=== PATIENT | male | born 1985 | race Caucasian/White ===

== ENCOUNTER 2017-08-03 17:42 | Emergency (ER) | payer MEDICAID, OTHER ==
[~2017-08-03] VITALS: Ht 190.5 cm; Wt 229.5 kg
[2017-08-03 17:56] VITALS: BP 168/115
[2017-08-03] MEDS ORDERED: HYDROcodone-ACET 10/325MG TAB PO ONE (22:15)
[2017-08-04] MEDS ORDERED: TRIAMCINOLONE 40MG/ML 1ML VIAL IM ONE (01:15)
[2017-08-04] MEDS ORDERED: LIDOCAINE 1% (LOCAL ANESTH.) PF 5ml SDV IJ ONE (01:15)
[2017-08-04] MEDS ORDERED: LIDOCAINE 1% HCL (LOCAL ANESTH.) INJ 20ML MDV ONE (01:22)
== END 2017-08-04 01:59 | disposition home or self-care (01) ==
LOC: ER 17:42
DX: M62.838 Other muscle spasm (principal); M54.2 Cervicalgia
CPT/HCPCS: 71046; 72040; 96372; 99284; J2001; J3301

== ENCOUNTER 2018-12-09 14:35 | Inpatient (IN) | payer BC, MEDICAID ==
[~2018-12-09] VITALS: Ht 185.4 cm; Wt 242.0 kg
[2018-12-09] MEDS ORDERED: NITROGLYCERIN 0.4 MG SL TAB SL ONE ×2 (14:47→16:00)
[2018-12-09] MEDS ORDERED: SODIUM CHLORIDE 0.9% 1,000 ML IV ONE (15:11)
[2018-12-09 15:34] LABS: Basophils # (auto) 0.2 uL; Basophils % (auto) 1.8 % (0.0-2.0); Eosinophils # (auto) 0.1 uL; Hemoglobin 16.1 g/dL (13.5-17.5); Lymphocytes % (auto) 11.4 % (10.0-50.0); Mean Corpuscular Hemoglobin 28.8 pg (28.0-32.0); Mean Corpuscular Hgb Conc. 32.8 g/dL (32.0-36.0); Mean Corpuscular Volume 87.8 fL (80.0-100.0); Monocytes # (auto) 0.8 uL; Monocytes % (auto) 8.9 % (0.0-12.0); Neutrophils # (auto) 6.6 uL; Neutrophils % (auto) 76.9 % (37.0-80.0); Nucleated Red Blood Cells % 0.5 %; Platelet Count (auto) 291 10^3/uL (140-450); Red Blood Cells 5.58 10^6/uL (4.5-5.90); Red Cell Distribution Width 17.7 % (11.8-14.3); White Blood Cell 8.6 10^3/uL (4.4-10.8)
[2018-12-09 15:46] LABS: Albumin 3.2 g/dL (3.4-5.0); INR 1.22 (0.9-1.15); Partial Thromboplastin Time 26.2 sec (23.64-32.05); Potassium 4.1 mmol/L (3.5-5.1)
[2018-12-09 15:51] LABS: BUN/Creatinine Ratio 10.7; Total Protein 8.3 g/dL (6.4-8.2)
[2018-12-09] MEDS ORDERED: methylPREDNISolone SOD SUCC 125 MG/2 ML VL IV ONE (16:00)
[2018-12-09] MEDS ORDERED: IPRATROPIUM BROM 0.5 MG/2.5ML INH SOL NEB ONE (16:00)
[2018-12-09] MEDS ORDERED: ALBUTEROL SULF 2.5 MG/0.5ML(0.5%) NEB SOLN NEB ONE (16:00)
[2018-12-09] MEDS ORDERED: cefTRIAXone 1GM/50ML D5W 50 ML IV ONE (16:00)
[2018-12-09] MEDS ORDERED: FUROSEMIDE 40 MG/4 ML VIAL IV ONE (16:00)
[2018-12-09] MEDS ORDERED: ALBUTEROL SULF 2.5 MG/0.5ML(0.5%) NEB SOLN ONE (16:04)
[2018-12-09] MEDS ORDERED: IPRATROPIUM BROM 0.5 MG/2.5ML INH SOL ONE (16:04)
[2018-12-09] MEDS ORDERED: ENOXAPARIN SOD 100 MG/1 ML SYRINGE SC ONE (16:15)
[2018-12-09] MEDS ORDERED: ENOXAPARIN SOD 80 MG/0.8ML SYRINGE SC ONE (20:00)
[2018-12-09] MEDS ORDERED: ENOXAPARIN SOD 30 MG/0.3 ML SYRINGE IV ONE (20:00)
[2018-12-10] VITALS (8 sets, daily range): BP systolic 114–142; BP diastolic 65–96
[2018-12-10] MEDS ORDERED: LORazepam 2MG/ML-1ML VIAL IV ONE (01:45)
[2018-12-10] MEDS ORDERED: PROPOFOL 100 ML IV SCH (04:06)
[2018-12-10] MEDS ORDERED: PROPOFOL 100 ML IV ONE (04:12)
[2018-12-10] MEDS ORDERED: MIDAZOLAM HCL 5 MG/ML-1ML VIAL IV ONE (04:15)
[2018-12-10] MEDS ORDERED: ETOMIDATE (2MG/ML) 20ML VIAL IV ONE (04:15)
[2018-12-10] MEDS ORDERED: SUCCINYLCHOLINE CHLORIDE 20 MG/ML 10ML VIAL IV ONE (04:15)
[2018-12-10] MEDS ORDERED: SODIUM CHLORIDE 0.9% 1,000 ML IV ONE (04:15)
[2018-12-10] MEDS ORDERED: ENOXAPARIN SOD 150 MG/1 ML SYRINGE SC ONE ×2 (04:30)
[2018-12-10] MEDS ORDERED: ENOXAPARIN SOD 100 MG/1 ML SYRINGE SC ONE ×2 (04:30→13:15)
--- NOTE | 2018-12-10 10:03 | NUR ---
CHARTING ERROR AT 1003. DISREGARD ENTRY.
[2018-12-10] MEDS ORDERED: NITROGLYCERIN 0.4 MG SL TAB SL ONE (13:15)
[2018-12-10] MEDS ORDERED: ASPirin 81 mg TAB PO ONE (13:15)
--- NOTE | 2018-12-10 14:47 | NUR ---
PT. OFF BIPAP PER DR. NAVAS. PLACED PT. ON 6LPM NC, SPO2 90%. PT. TO WEAR BIPAP AT [facility]. PT. IS AWAKE AND ALERT, NO RESP. DISTRESS NOTED, WILL CONTINUE TO MONITOR RESP. STATUS. Addendum: 12/10/18 at 1529 by Chasity Schaefer RT Amended: Links added.
[2018-12-10] MEDS ORDERED: HEPARIN DRIP/D5W 100UNITS/ML 250 ML IV SCH (15:57)
[2018-12-10] MEDS ORDERED: CLOPIDOGREL BISULFATE 75 MG TAB PO ONE ×2 (16:00→16:56)
[2018-12-10] MEDS ORDERED: HEPARIN SODIUM (PORCINE) 5000 UNITS/ML 1ML VIAL IV ONE ×2 (16:00→17:15)
[2018-12-10] MEDS ORDERED: ALBUTEROL SULF 2.5 MG/0.5ML(0.5%) NEB SOLN NEB ONE (16:15)
--- NOTE | 2018-12-10 16:30 | NUR ---
PT. FOUND ON 10LPM SIMPLE MASK, SPO2 990%. PT. STATES HE FEELS MUCH BETTER, WILL CONTINUE TO MONITOR RESP. STATUS.
[2018-12-10 17:02] LABS: INR 1.2 (0.9-1.15); Partial Thromboplastin Time 29.8 sec (23.64-32.05)
[2018-12-10] MEDS ORDERED: ACETAMINOPHEN 500 MG TAB PO PRN (17:45)
[2018-12-10] MEDS ORDERED: ONDANSETRON HCL 4 MG/2 ML VIAL IV PRN (17:45)
[2018-12-10] MEDS ORDERED: NITROGLYCERIN 0.4 MG SL TAB SL PRN (17:45)
[2018-12-10] MEDS ORDERED: MORPHINE SULF INJ 2 MG/ML SYRINGE 1ML IV PRN ×2 (17:45)
[2018-12-10] MEDS: HEPARIN DRIP/D5W 100UNITS/ML 250 ML IV SCH (18:04)
[2018-12-10] MEDS ORDERED: VASELINE LIP THERAPY 10gm TOP PRN (22:45)
[2018-12-11] VITALS (68 sets, daily range): BP systolic 107–146; BP diastolic 60–100
--- NOTE | 2018-12-11 00:15 | NUR ---
INITIAL ASSESSMENT PT TRANSFERRED TO SPECIALTY BED IN ROOM 108 FROM ED. A/O X4. SOB ON MASK AT 10 LITERS, 02 SAT 89% WITH RT AT BEDSIDE. ST ON OCCUPATIONAL HEALTH MANAGER AT 104. ABD LARGE AND SOFT NO TENDERNESS, IV'S PATENT AND INTACT. IV HEPERARIN RUNNING, SEE IV SPREADSHEET. SKIN INTACT, WITH ROUGH SCALY LEGS. CASTRO CATHETER PATENT AND DRAINING RED URINE TO GRAVITY. PATIENT IN NO DISTRESS OR PAIN AT THIS TIME. EDUCATED PT AND FAMILY GUNSTOCK SPRAY UNIT ADJUSTER LIGHT AND UPDATED FAMILY ON POC. BED IN LOWEST LOCKED POSITION, IN FULL VIEW OF NURSES STATION, WILL CONTINUE TO MONITOR.
[2018-12-11] MEDS: ALBUTEROL SULF 2.5 MG/0.5ML(0.5%) NEB SOLN NEB PRN ×2 (00:26→12:15)
[2018-12-11] MEDS: IPRATROPIUM BROM 0.5 MG/2.5ML INH SOL NEB PRN ×2 (00:26→12:15)
[2018-12-11 01:30] LABS: INR 1.19 (0.9-1.15); Partial Thromboplastin Time 33.8 sec (23.64-32.05)
--- NOTE | 2018-12-11 01:30 | NUR ---
BROTHER AT BEDSIDE UPDATED ON PT STATUS, ALL QUESTIONS AND CONCERNS ADDRESSED AT THIS TIME. VERBALIZED UNDERSTANDING.
--- NOTE | 2018-12-11 02:00 | NUR ---
COUSIN AT BEDSIDE UPDATED ON PT STATUS, ALL QUESTIONS AND CONCERNS ADDRESSED AT THIS TIME. VERBALIZED UNDERSTANDING.
[2018-12-11 05:22] LABS: Basophils # (auto) 0.3 uL; Basophils % (auto) 2.8 % (0.0-2.0); Eosinophils # (auto) 0.1 uL; Eosinophils % (auto) 1.4 % (0.0-7.0); Hematocrit 45.5 % (41.0-53.0); Lymphocytes # (auto) 1.9 uL; Lymphocytes % (auto) 19.9 % (10.0-50.0); Mean Corpuscular Hemoglobin 28.8 pg (28.0-32.0); Mean Corpuscular Hgb Conc. 32.9 g/dL (32.0-36.0); Mean Corpuscular Volume 87.5 fL (80.0-100.0); Monocytes # (auto) 0.6 uL; Monocytes % (auto) 6.4 % (0.0-12.0); Neutrophils # (auto) 6.5 uL; Neutrophils % (auto) 69.5 % (37.0-80.0); Nucleated Red Blood Cells % 0.1 %; Platelet Count (auto) 291 10^3/uL (140-450); Red Blood Cells 5.21 10^6/uL (4.5-5.90); Red Cell Distribution Width 17.4 % (11.8-14.3); White Blood Cell 9.4 10^3/uL (4.4-10.8)
[2018-12-11 05:41] LABS: INR 1.17 (0.9-1.15); Partial Thromboplastin Time 33.4 sec (23.64-32.05)
[2018-12-11 05:43] LABS: BUN/Creatinine Ratio 13.1; Calcium 8.6 mg/dL (8.5-10.1); Potassium 4.2 mmol/L (3.5-5.1)
[2018-12-11 05:47] LABS: Bilirubin, Total 1.9 mg/dL (0.2-1.0); Total Protein 7.6 g/dL (6.4-8.2)
[2018-12-11] MEDS: HEPARIN DRIP/D5W 100UNITS/ML 250 ML IV SCH ×3 (06:06→23:20)
--- NOTE | 2018-12-11 08:40 | NUR ---
PER DR. ARAMBULA ORDERS FOR PT TO WEAR BIPAP AT NIGHT AND DURING DAY WHILE NAPPING. WILL CONTINUE TO MONITOR PT.
--- NOTE | 2018-12-11 09:00 | NUR ---
NUTRITION PATIENT IS HAVING A POOR APPETITE AT THIS TIME. PT ONLY DRANK JUICES. PT AWAITING LUNCH.
[2018-12-11] MEDS ORDERED: CLOPIDOGREL BISULFATE 75 MG TAB PO SCH (10:00)
--- NOTE | 2018-12-11 11:20 | NUR ---
CHIP MUCKER AT BEDSIDE
[2018-12-11] MEDS: FAMOTIDINE 20 MG TAB PO SCH (11:40)
--- NOTE | 2018-12-11 12:00 | NUR ---
REPOSITIONING PATIENT FEARFUL OF REPOSITIONING DUE TO DESATURATION. WITH CALMING AND REASSURANCE PATIENT WAS ABLE TO LAY IN SEMI FOWLERS AND TURNED TO SIDE. PT NOTED TO DESATURATE TO 88% BUT AFTER PATIENT BACK IN HIGH FOWLES POX INCREASED BACK TO BASELINE 90-93%. PT TOLERATED WELL. SACRUM REMAINS INTACT.
--- NOTE | 2018-12-11 12:45 | NUR ---
LAB CALLED FOR PENDING PTT.
[2018-12-11] MEDS ORDERED: ASPirin 81 mg TAB PO ONE (13:00)
[2018-12-11] MEDS ORDERED: cefTRIAXone 1GM/50ML D5W 50 ML IV ONE (13:00)
[2018-12-11] MEDS ORDERED: AZITHROMYCIN 500MG/ 250ML 250 ML IV ONE (13:00)
--- NOTE | 2018-12-11 13:00 | NUR ---
HOSPITALIST AT BEDSIDE DR. FARRIS UPDATED ON PATIENTS STATUS. MD AWARE OF OF HEMTURIA. MD UPDATED PATIENT AND FAMILY AT BEDSIDE RE: PLAN OF CARE. SEE NEW ORDERS.
--- NOTE | 2018-12-11 13:52 | NUR ---
FIBROUS PLASTERER AT BEDSIDE DR. HAMLIN AT BEDSIDE UPDATED PATIENT AND MOTHER AT BEDSIDE. QUESTIONS AND CONCERNS ADDRESSED. CLARIFIED WITH MD, OK TO STOP ASPIRIN AND PLAVIX PATIENT IS CURRENTLY ON HEPARIN. MD STATING PATIENT TO BE ON HEPARIN FOR 5 DAYS THEN STARTED ON ANTICOAGULANT. BLOOD CLOTTING STUDIES ARE SEND OUTS, LAB AWARE AND CALLING BACK WITH LAB ORDERS FROM [facility].
--- NOTE | 2018-12-11 13:54 | NUR ---
LAB AWARE OF PENDING STAT ORDER, PTT TO BE TAKEN SHORTLY BY INDUSTRIAL SEWER. LAB AWARE NO BLOOD DRAWS TO LEFT ARM.
--- NOTE | 2018-12-11 13:56 | NUR ---
ARTERIAL STUDY BEING TAKEN AT BEDSIDE.
[2018-12-11 14:27] LABS: INR 1.16 (0.9-1.15); Partial Thromboplastin Time 35.4 sec (23.64-32.05)
[2018-12-11] MEDS: ALBUTEROL SULF 2.5 MG/0.5ML(0.5%) NEB SOLN NEB SCH ×3 (14:56→22:29)
[2018-12-11] MEDS: IPRATROPIUM BROM 0.5 MG/2.5ML INH SOL NEB SCH ×3 (14:57→22:29)
--- NOTE | 2018-12-11 15:19 | NUR ---
HEPARIN PROTOCOL PER PTT OF 35.4. 5000 UNIT HEPARIN BOLUS TO BE GIVEN AND INCREASE RATE BY 300UNITS/HR. OR 3ML/HR. RATE INCREASED TO 26MLHR. RX. AWARE OF CHANGE.
[2018-12-11] MEDS ORDERED: HEPARIN SODIUM (PORCINE) 5000 UNITS/ML 1ML VIAL IV ONE (15:30)
--- NOTE | 2018-12-11 17:12 | NUR ---
DR. ARAMBULA GIVEN ECHO RESULTS. CURRENT TX TO CONTINUE.
--- NOTE | 2018-12-11 18:16 | NUR ---
CRITICAL RESULT [facility] CALLED WITH CRITICAL ARTERIAL STUDY. MARKETING DATABASE CONSULTANT PATRICA PAGED AND NOTIFIED, VERBALIZED UNDERSTANDING. MARKETING DATABASE CONSULTANT AWARE PATIENT HAS WEAK BUT PULSE IS PRESENT. HAND IS WARM TO TOUCH, PT AT TIMES THROUGHOUT HAS COMPLAINED OF SOME TINGLING. NEW ORDER RECEIVED. DR. HAMLIN PAGED TO NOTIFY.
--- NOTE | 2018-12-11 18:45 | NUR ---
DR. HAMLIN CALLED BACK. UPDATED ON IMAGING RESULTS. MD NOTIFIED PATIENT HAS PULSE VIA PALPATION AND VERIFIED WITH DOPPLER, HAND WARM TO TOUCH, CAP REFILL LESS THAN 3 SEC, PT AT THIS TIME DENIES ANY TINGLING OR NUMBNESS. NEW ORDERS IN PLACE FOR PO MEDICATION FOR TX OF VASOSPASMS. Addendum: 12/11/18 at 1847 by Rosetta Cadet RN ALL PULSES PRESENT AND VERIFIED WITH DOPPLER. Addendum: 12/11/18 at 1937 by Rosetta Cadet RN IV INFUSING HEPARIN TO LEFT ARM D/C'D AND CHANGED LINE TO RIGHT AC.
--- NOTE | 2018-12-11 19:13 | NUR ---
RT NOTE RECEIVED PT ON BIPAP B8 ON STATED SETTINGS WITH MEDIUM MASK. BIPAP IS PLUGGED TO RED OUTLET. ALARMS ARE ON AND AUDIBLE AT NURSES STATION. AMBU BAG AT BEDSIDE AND CONNECTED TO O2 SOURCE. PT HAS HIGH FLOW AT BEDSIDE. BILATERAL BS ARE DIMINISHED. HHN GIVEN INLINE WITH 2.5 MG ALBUTEROL AND 0.5 MG ATROVENT WITHOUT ADVERSE REACTION NOTED. CONT ORDERED POX 95% Addendum: 12/11/18 at 2042 by Charley Mendoza RT Amended: Links added.
--- NOTE | 2018-12-11 20:09 | NUR ---
RT NOTE PT REQUESTS TO COME OFF BIPAP AT THIS TIME. PT PLACED ON HIGH FLOW. STAN GOMES AT BEDSIDE AND AWARE. PT APPEARS TO TOLERATES WELL. CONT ORDERED Addendum: 12/11/18 at 2042 by Charley Mendoza RT Amended: Links added.
[2018-12-11] MEDS ORDERED: DILTIAZEM HCL 120MG ER CAP PO ONE (22:00)
[2018-12-11 22:08] LABS: Basophils # (auto) 0.1 uL; Basophils % (auto) 0.9 % (0.0-2.0); Eosinophils # (auto) 0.1 uL; Hemoglobin 14.6 g/dL (13.5-17.5); Lymphocytes # (auto) 1.7 uL; Lymphocytes % (auto) 22.9 % (10.0-50.0); Mean Corpuscular Hemoglobin 28.3 pg (28.0-32.0); Mean Corpuscular Hgb Conc. 31.7 g/dL (32.0-36.0); Mean Corpuscular Volume 89.2 fL (80.0-100.0); Monocytes # (auto) 0.5 uL; Monocytes % (auto) 6.5 % (0.0-12.0); Neutrophils # (auto) 5.1 uL; Neutrophils % (auto) 67.7 % (37.0-80.0); Platelet Count (auto) 281 10^3/uL (140-450); Red Blood Cells 5.15 10^6/uL (4.5-5.90); Red Cell Distribution Width 18.1 % (11.8-14.3); White Blood Cell 7.5 10^3/uL (4.4-10.8)
--- NOTE | 2018-12-11 22:30 | NUR ---
RT NOTE PT WAS SEEN BY RT FOR HHN TX. PT TOLERATES WELL VIA MASK. NO ADVERSE REACTION NOTED. CONT ORDERED Addendum: 12/11/18 at 2236 by Charley Mendoza RT Amended: Links added.
[2018-12-12] VITALS (32 sets, daily range): BP systolic 97–146; BP diastolic 76–95
--- NOTE | 2018-12-12 00:40 | NUR ---
RT NOTE PLACED PT BACK ON BIPAP TO SLEEP. PT ON BIPAP B8 ON STATED SETTINGS WITH MEDIUM MASK. BIPAP IS PLUGGED TO RED OUTLET. ALARMS ARE ON AND AUDIBLE AT NURSES STATION. AMBU BAG AT BEDSIDE AND CONNECTED TO O2 SOURCE. LIQUI-CELL IN PLACE. NO SKIN BREAKDOWN NOTED. PT HAS HIGH FLOW AT BEDSIDE. CONT ORDERED POX 97% Addendum: 12/12/18 at 0125 by Charley Mendoza RT Amended: Links added.
--- NOTE | 2018-12-12 02:17 | NUR ---
RT NOTE ROUTINE BIPAP CHECK DONE. PT ON BIPAP B8 ON STATED SETTINGS WITH MEDIUM MASK. BIPAP IS PLUGGED TO RED OUTLET. ALARMS ARE ON AND AUDIBLE AT NURSES STATION. AMBU BAG AT BEDSIDE AND CONNECTED TO O2 SOURCE. LIQUI-CELL IN PLACE. NO SKIN BREAKDOWN NOTED. PT HAS HIGH FLOW AT BEDSIDE. BILATERAL BS ARE DIMINISHED. HHN GIVEN INLINE WITH 2.5 MG ALBUTEROL AND 0.5 MG ATROVENT WITHOUT ADVERSE REACTION. VISITOR AT BEDSIDE CONT ORDERED. POX 94% Addendum: 12/12/18 at 0308 by Charley Mendoza RT Amended: Links added.
[2018-12-12] MEDS: IPRATROPIUM BROM 0.5 MG/2.5ML INH SOL NEB SCH ×6 (02:28→22:02)
[2018-12-12] MEDS: ALBUTEROL SULF 2.5 MG/0.5ML(0.5%) NEB SOLN NEB SCH ×6 (02:28→22:02)
[2018-12-12] MEDS: HEPARIN DRIP/D5W 100UNITS/ML 250 ML IV SCH ×2 (02:30→11:16)
--- NOTE | 2018-12-12 02:30 | NUR ---
PT/PTT RESULTS IN AND PTT=32; PER PROTOCOL, BOLUSED 5,000 UNITS/5ML OF HEPARIN GTT AND INCREASED RATE BY 300 UNITS/HR FROM 26ML TO 29ML AND WILL RECHECK PTT AT 0830A.
--- NOTE | 2018-12-12 04:04 | NUR ---
RT NOTE ROUTINE BIPAP CHECK DONE. PT ON BIPAP B8 ON STATED SETTINGS WITH MEDIUM MASK. BIPAP IS PLUGGED TO RED OUTLET. ALARMS ARE ON AND AUDIBLE AT NURSES STATION. AMBU BAG AT BEDSIDE AND CONNECTED TO O2 SOURCE. LIQUI-CELL IN PLACE. NO SKIN BREAKDOWN NOTED. PT HAS HIGH FLOW AT BEDSIDE. BILATERAL BS ARE DIMINISHED. VISITOR AT BEDSIDE CONT ORDERED POX 95% Addendum: 12/12/18 at 0422 by Charley Mendoza RT Amended: Links added.
--- NOTE | 2018-12-12 08:00 | NUR ---
CARE COMPLETED TOTAL BED CHANGE AND BED BATH PROVIDED WHILE PATIENT ON BIPAP. PT TOLERATED MOVEMENT WELL WITH REASSURANCE ON 60% FI02. PT ABLE TO ASSIST WITH TURNING WHILE MODERATE ASSISTANCE PROVIDED. PT TO BE PLACED ON HIGH FLOW ONCE CARES COMPLETED.
[2018-12-12] MEDS: DILTIAZEM HCL 120MG ER CAP PO SCH (10:00)
[2018-12-12] MEDS ORDERED: ASPirin 81 mg TAB PO SCH (10:00)
--- NOTE | 2018-12-12 10:00 | NUR ---
BUSINESS APPLICATIONS ANALYST AT BEDSIDE DR. ARAMBULA AT BEDSIDE. MD UPDATED PATIENT AND COUSIN ON PLAN OF CARE. QUESTIONS AND CONCERNS ADDRESSED. SEE MD NOTES.
[2018-12-12 10:18] LABS: Basophils # (auto) 0.1 uL; Basophils % (auto) 1.2 % (0.0-2.0); Eosinophils # (auto) 0.2 uL; Eosinophils % (auto) 2.6 % (0.0-7.0); Hematocrit 46.6 % (41.0-53.0); Hemoglobin 15.4 g/dL (13.5-17.5); Lymphocytes # (auto) 1.4 uL; Lymphocytes % (auto) 20.3 % (10.0-50.0); Mean Corpuscular Volume 87.9 fL (80.0-100.0); Monocytes # (auto) 0.5 uL; Monocytes % (auto) 6.9 % (0.0-12.0); Neutrophils # (auto) 4.7 uL; Nucleated Red Blood Cells % 0.1 %; Platelet Count (auto) 289 10^3/uL (140-450); Red Blood Cells 5.31 10^6/uL (4.5-5.90); Red Cell Distribution Width 17.8 % (11.8-14.3); White Blood Cell 6.8 10^3/uL (4.4-10.8)
[2018-12-12 10:32] LABS: Albumin 2.8 g/dL (3.4-5.0); Calcium 8.8 mg/dL (8.5-10.1); Potassium 4.2 mmol/L (3.5-5.1)
[2018-12-12 10:33] LABS: INR 1.16 (0.9-1.15); Partial Thromboplastin Time 38.6 sec (23.64-32.05)
[2018-12-12 10:35] LABS: BUN/Creatinine Ratio 12.4; Bilirubin, Total 2.2 mg/dL (0.2-1.0); Total Protein 7.3 g/dL (6.4-8.2)
--- NOTE | 2018-12-12 10:35 | NUR ---
PTT PENDING FOR TITRATION OF HEPARIN PROTOCOL.
[2018-12-12] MEDS: AZITHROMYCIN 500MG/ 250ML 250 ML IV SCH (11:04)
[2018-12-12] MEDS: cefTRIAXone 1GM/50ML D5W 50 ML IV SCH (11:05)
[2018-12-12] MEDS: FAMOTIDINE 20 MG TAB PO SCH (11:06)
--- NOTE | 2018-12-12 11:17 | NUR ---
PTT PENDING AWAITING RESULTS FOR TITRATION.
--- NOTE | 2018-12-12 11:45 | NUR ---
PTT 38.6, NO BOLUS, HEPARIN TO BE INCREASED BY 2ML/HR. HEPARIN RATE AT 31ML/HR..
--- NOTE | 2018-12-12 12:25 | NUR ---
TITRATED HIGH FLOW NASAL CANNULA TO 55 LPM, 65% FIO2. PT TOLERATING CHANGE WELL. SPO2 RANGES 90%-93%.
--- NOTE | 2018-12-12 12:55 | NUR ---
DR. HAMLIN AT BEDSIDE MD UPDATED ON PATIENTS STATUS. LEFT HAND ASSESSED, PULSES PALPABLE, HAND WARM TO TOUCH WITH CAP REFILL LESS THAN 3 SEC. SEE MD ORDERS.
--- NOTE | 2018-12-12 14:03 | NUR ---
PT SWITCHED TO BIPAP ON SETTINGS 20/10 BUR 12, 60% FIO2 TO NAP. PT SLEEPING AND TOLERATING BIPAP WELL. LIQUI-CELL IN TACT ON BRIDGE OF NOSE. LUNGS ARE DIMINISHED T/O ANTERIOR LOBES. BIPAP ALARMS SET AND AUDIBLE.
--- NOTE | 2018-12-12 15:39 | NUR ---
Cooling Measures applied. Patient currently has temp of 99.5 , cooling measures in place.
--- NOTE | 2018-12-12 16:30 | NUR ---
PATIENT SLEEPING WHILE ON BIPAP RR 23-25. POX 97%. VSS. WILL CONTINUE TO MONITOR.
--- NOTE | 2018-12-12 18:15 | NUR ---
LAB AT BEDSIDE OBTAINING PTT FOR HEPARIN PROTOCOL.
--- NOTE | 2018-12-12 18:17 | NUR ---
PATIENT REQUESTING TO REMAIN ON BIPAP. R.T AWARE. TRAY TO BE PROVIDED AND WHEN PATIENT IS READY TO EAT R.T TO BE NOTIFIED.
[2018-12-12 18:50] LABS: INR 1.18 (0.9-1.15); Partial Thromboplastin Time 43.8 sec (23.64-32.05)
--- NOTE | 2018-12-12 19:05 | NUR ---
PENDING PTT RESULTS.
--- NOTE | 2018-12-12 19:45 | NUR ---
PHARMACY CALLED AND REPORTED PTT RESULT= 43.8 AND TO INCREASE HEPARIN GTT BY 200 UNITS/HR WHEN ABLE.
--- NOTE | 2018-12-12 20:30 | NUR ---
INCREASED HEPARIN GTT BY 200 UNITS/HR AND WILL REPEAT PT/PTT IN SIX HOURS; WENT FROM 31ML/HR TO 33ML/HR.
[2018-12-13] VITALS (28 sets, daily range): BP systolic 114–155; BP diastolic 71–96
[2018-12-13] MEDS: IPRATROPIUM BROM 0.5 MG/2.5ML INH SOL NEB SCH ×6 (02:07→21:52)
[2018-12-13] MEDS: ALBUTEROL SULF 2.5 MG/0.5ML(0.5%) NEB SOLN NEB SCH ×6 (02:07→21:52)
[2018-12-13 04:35] LABS: Basophils # (auto) 0.1 uL; Basophils % (auto) 0.8 % (0.0-2.0); Eosinophils # (auto) 0.2 uL; Eosinophils % (auto) 3.2 % (0.0-7.0); Hematocrit 45.9 % (41.0-53.0); Hemoglobin 15.1 g/dL (13.5-17.5); Lymphocytes # (auto) 1.4 uL; Lymphocytes % (auto) 21.4 % (10.0-50.0); Mean Corpuscular Hemoglobin 28.9 pg (28.0-32.0); Mean Corpuscular Hgb Conc. 32.9 g/dL (32.0-36.0); Mean Corpuscular Volume 87.9 fL (80.0-100.0); Monocytes # (auto) 0.5 uL; Monocytes % (auto) 7.5 % (0.0-12.0); Neutrophils # (auto) 4.5 uL; Neutrophils % (auto) 67.1 % (37.0-80.0); Nucleated Red Blood Cells % 0.1 %; Platelet Count (auto) 273 10^3/uL (140-450); Red Blood Cells 5.22 10^6/uL (4.5-5.90); Red Cell Distribution Width 17.6 % (11.8-14.3); White Blood Cell 6.8 10^3/uL (4.4-10.8)
[2018-12-13 04:45] LABS: INR 1.18 (0.9-1.15); Partial Thromboplastin Time 33.4 sec (23.64-32.05)
[2018-12-13 04:52] LABS: Albumin 2.8 g/dL (3.4-5.0); Calcium 8.8 mg/dL (8.5-10.1); Potassium 4.2 mmol/L (3.5-5.1)
[2018-12-13 04:59] LABS: BUN/Creatinine Ratio 10.6; Total Protein 7.1 g/dL (6.4-8.2)
[2018-12-13] MEDS ORDERED: HEPARIN SODIUM (PORCINE) 5000 UNITS/ML 1ML VIAL ONE (05:29)
[2018-12-13] MEDS ORDERED: HEPARIN SODIUM (PORCINE) 5000 UNITS/ML 1ML VIAL IV ONE (05:30)
[2018-12-13 05:39] LABS: % Iron Saturation 18.4 % (20-55)
--- NOTE | 2018-12-13 05:50 | NUR ---
PTT RESULTS=33.4; PT. RECEIVED 5,000 UNIT HEPARIN BOLUS IV AND INCREASED HEPARIN GTT TO 36ML/HR FROM 33ML/HR; WILL RECHECK PTT IN 6 HOURS PER PROTOCOL.
--- NOTE | 2018-12-13 06:54 | NUR ---
Respiratory note: RECEIVED PATIENT ON B8 BIPAP FITTED WITH A MEDIUM FULL FACE MASK, AND BEING VENTILATED WITH THE CHARTED SETTINGS. SPO2 95%, LUNG SOUNDS DIM T/O. PATIENT IS ASLEEP, RESTING COMFORTABLY AND TOLERATING BIPAP WELL. NO CHANGES MADE. BIPAP PLUGGED INTO RED OUTLET AND ALL ALARMS ARE SET AND AUDIBLE. WILL CONTINUE TO ASSESS PATIENT WELL BIPAP FUNCTION. [employer] RUN INLINE.
[2018-12-13] MEDS: HEPARIN DRIP/D5W 100UNITS/ML 250 ML IV SCH (07:42)
--- NOTE | 2018-12-13 09:00 | NUR ---
MD Dr. Anglin at bedside for consult: Hematauria. MD updated on patient condition with new orders CT of abd/pelvic without contrast. MD aware that we are unable to take this patient to CT secondary to weight limit. MD spoke to patient regarding plan of care and questions/concerns answered by MD. Will continue to monitor patient closely.
[2018-12-13] MEDS: cefTRIAXone 1GM/50ML D5W 50 ML IV SCH (09:02)
--- NOTE | 2018-12-13 09:22 | NUR ---
RESPIRATORY RT Brian at bedside and placed patient on High flow nasal cannula at 55 liters 65% Fio2 sating 92%, will continue to monitor patient closely.
--- NOTE | 2018-12-13 09:22 | NUR ---
Respiratory note: PATIENT TAKEN OFF BIPAP AND PLACED ON HFNC AT THIS TIME. CURRENT HFNC SETTINGS: 55LPM 65% RN SHANEL MADE AWARE OF THERAPY CHANGE. PATIENTS SPO2 MAINTAINED AT 92%.
--- NOTE | 2018-12-13 09:45 | NUR ---
FAMILY Patient's brother at bedside.
[2018-12-13] MEDS: DILTIAZEM HCL 120MG ER CAP PO SCH (10:00)
--- NOTE | 2018-12-13 10:09 | NUR ---
Respiratory note: FIO2 INCREASED TO 70% ON HFNC FOR LOW SPO2 OF 88%. SPO2 INCREASED TO 90% AND MAINTAINED. STAN UGARTE MADE AWARE OF CHANGE.
[2018-12-13] MEDS: AZITHROMYCIN 500MG/ 250ML 250 ML IV SCH (10:29)
[2018-12-13] MEDS: FAMOTIDINE 20 MG TAB PO SCH (10:30)
[2018-12-13 11:32] LABS: Ferritin 145.2 ng/mL (10-322)
[2018-12-13 11:34] LABS: Folate (Folic Acid) 2.84 ng/mL (5.38-24)
[2018-12-13] MEDS ORDERED: ENOXAPARIN SOD 150 MG/1 ML SYRINGE SC ONE (12:45)
[2018-12-13 12:57] LABS: INR 1.23 (0.9-1.15); Partial Thromboplastin Time 47.9 sec (23.64-32.05)
--- NOTE | 2018-12-13 13:54 | NUR ---
Respiratory note: PATIENT REQUESTED TO BE PLACED BACK ON BIPAP SO HE COULD TAKE A NAP; BIPAP PLACED BACK ON AT THIS TIME WITH ALL ORDERED SETTINGS. PATIENT TOLERATING BIPAP WELL. MED-NEB RUN INLINE.
--- NOTE | 2018-12-13 16:25 | NUR ---
TUBE BUFFER Called piano case maker Camilla to check that she received the order to transfer to [facility] since this RN has not heard from any case manger regarding this transfer. Will attempt again.
--- NOTE | 2018-12-13 16:43 | NUR ---
Assessment Pt is a 33 yr old alert and oriented male. Pt lives with his father, Cosme Martinez, who is his emergency contact at [phone]. Pt stated that he will feel safe returning home once a CPAP machine is ordered for him. Pt stated that he is ambulatory and functions independently with his ADLs, cooking and cleaning. Pt stated that he has a big support system with family and friends. Pts Primary is Dr. Tom Cramer. Pt stated that a family member will be able to transport him home upon d/c. No other needs or concerns presently. Addendum: 12/13/18 at 1644 by SON LOPEZ Amended: Links added.
[2018-12-13] MEDS ORDERED: WARFARIN SODIUM 10 MG TAB PO ONE (17:00)
--- NOTE | 2018-12-13 17:00 | NUR ---
ARMORED CAR GUARD/FAXED dairy manager Camilla called would like copy of insurance card faxed to her of this patient. Insurance card copy faxed to Camilla at [phone].
--- NOTE | 2018-12-13 17:25 | NUR ---
I faxed transfer request to [facility]. I spoke with the [facility] transfer center, they are unable to accommodate patient due to his size, their CT table only holds up to 500 pounds.
--- NOTE | 2018-12-13 17:45 | NUR ---
WHOLESALE DIAMOND BROKER Received phone call from case management rn Camilla stating " [facility] is unable to accommodate patients size, will attempt other hospitals."
--- NOTE | 2018-12-13 19:30 | NUR ---
REPORT RECEIVED, ASSUMED CARE.
[2018-12-13] MEDS: ENOXAPARIN SOD 150 MG/1 ML SYRINGE SC SCH (21:47)
[2018-12-14] VITALS (34 sets, daily range): BP systolic 109–149; BP diastolic 63–90
[2018-12-14] MEDS: ALBUTEROL SULF 2.5 MG/0.5ML(0.5%) NEB SOLN NEB SCH ×6 (02:21→22:13)
[2018-12-14] MEDS: IPRATROPIUM BROM 0.5 MG/2.5ML INH SOL NEB SCH ×6 (02:21→22:13)
[2018-12-14 04:53] LABS: Basophils # (auto) 0.1 uL; Basophils % (auto) 0.9 % (0.0-2.0); Eosinophils # (auto) 0.3 uL; Eosinophils % (auto) 3.7 % (0.0-7.0); Hematocrit 46.5 % (41.0-53.0); Hemoglobin 15.3 g/dL (13.5-17.5); Lymphocytes # (auto) 1.2 uL; Lymphocytes % (auto) 16.7 % (10.0-50.0); Mean Corpuscular Hemoglobin 28.5 pg (28.0-32.0); Mean Corpuscular Volume 86.4 fL (80.0-100.0); Monocytes # (auto) 0.6 uL; Monocytes % (auto) 7.6 % (0.0-12.0); Neutrophils # (auto) 5.2 uL; Neutrophils % (auto) 71.1 % (37.0-80.0); Nucleated Red Blood Cells % 0.1 %; Platelet Count (auto) 276 10^3/uL (140-450); Red Blood Cells 5.38 10^6/uL (4.5-5.90); Red Cell Distribution Width 17.6 % (11.8-14.3); White Blood Cell 7.3 10^3/uL (4.4-10.8)
[2018-12-14 05:05] LABS: Albumin 2.7 g/dL (3.4-5.0); Calcium 8.9 mg/dL (8.5-10.1); Potassium 4.3 mmol/L (3.5-5.1)
[2018-12-14 05:08] LABS: BUN/Creatinine Ratio 8.2
[2018-12-14 05:11] LABS: Bilirubin, Total 2.2 mg/dL (0.2-1.0); Total Protein 7.4 g/dL (6.4-8.2)
--- NOTE | 2018-12-14 07:50 | NUR ---
FAMILY Patients family at bedside.
--- NOTE | 2018-12-14 07:55 | NUR ---
MD Dr. Palma at bedside updated on patient condition with no new orders. MD spoke to patient and patients mother and brother, whom are at bedside regarding plan of care, questions and concerns answered by MD.
[2018-12-14] MEDS: DILTIAZEM HCL 120MG ER CAP PO SCH (09:52)
[2018-12-14] MEDS: FAMOTIDINE 20 MG TAB PO SCH (09:54)
[2018-12-14] MEDS: ENOXAPARIN SOD 150 MG/1 ML SYRINGE SC SCH ×2 (09:54→22:00)
--- NOTE | 2018-12-14 10:00 | NUR ---
RESPIRATORY RT Nuvia at bedside and increased FIO2 on high flow nasal cannula to 100% secondary to patient sustaining O2 sats between 84-85%. Will continue to monitor patient closely.
--- NOTE | 2018-12-14 11:00 | NUR ---
RESPIRATORY RT Nuvia paged through PBX regarding patient wanting to get on Bipap. Awaiting for RT to call or arrive into room.
--- NOTE | 2018-12-14 11:10 | NUR ---
RESPIRATORY RT Nuvia at bedside per patient request to be placed on Bipap. Bipap at 20/10 85% sating 91% and tolerating well. Will continue to monitor patient closely.
--- NOTE | 2018-12-14 11:30 | NUR ---
Respiratory note: PT PLACED ON BIPAP BECAUSE HE WANTED TO SLEEP.SETTINGS ARE 20/10 BUR 12 AND 85%.
--- NOTE | 2018-12-14 12:20 | NUR ---
I called [facility] [phone] and spoke with Senior J2Ee Developer Valentina to ask if they can accommodate this patient. She is going to check and give me a call back.
--- NOTE | 2018-12-14 13:02 | NUR ---
I received a call from Valentina at [facility] letting me know that they can not accommodate a patient over [address] Scan machine.
--- NOTE | 2018-12-14 15:26 | NUR ---
I called [facility] [phone] to inquire about their weight restrictions for their CT/procedure tables-spoke with greenhouse assistant Maggie-she said they have no beds at this time and that she will give me a call back regarding their capabilities.
[2018-12-14] MEDS ORDERED: FUROSEMIDE 40 MG/4 ML VIAL IV ONE (17:30)
--- NOTE | 2018-12-14 18:02 | NUR ---
Respiratory note: RECEIVED PT ON HFNC, UNIT CONNECTED TO RED OUTLET MEDICAL AIR AND O2 WALL SOURCE. AMBU BAG AND MASK AT BEDSIDE. BS ARE DIMINISHED T/O, MED NEB TX GIVEN VIA MASK PT TOLERATING WELL. RT NAME AND PAGER ASSIGNMENT WRITTEN ON PTS ROOM BOARD. WILL CONTINUE TO MONITOR Q4H AND NEEDED.
[2018-12-14] MEDS: ALPRAZolam 0.25 MG TAB PO PRN (18:40)
--- NOTE | 2018-12-14 19:15 | NUR ---
OPEN Assumed care, full assessment done; see interventions. Patient on Hi-Efrain NC at 70 LPM with 100% Fio2; pox 90-92%. Patient in no distress. Call light within reach, all questions and concerns addressed.
--- NOTE | 2018-12-14 22:00 | NUR ---
Patient placed on bipap per request; settings 20/10, 85% fio2; pox 93%.
--- NOTE | 2018-12-14 22:25 | NUR ---
Respiratory note: PLACED PT ON BIPAP PER HIS REQUEST. PT PLACED ON UNIT B8, BIPAP CONNECTED TO RED OUTLET AND O2 SOURCE. ALARMS ARE SET AND AUDIBLE. AMBU BAG AND MASK AT BEDSIDE BS ARE DIMINISHED T/O. PLACED ON (M) MASK, STAN STODDARD AWARE OF BIPAP PLACEMENT. *SOME REDNESS AND DRY SCAB ON BRIDGE OF NOSE. COMMUNICATED FINDINGS TO STAN STODDARD, WOUND CONSULT PLACED BY RN TO FURTHER ASSESS. LEAD RT KENIA Pierson MADE AWARE OF PTS SKIN INTEGRITY. PLACED [id number] RATHER THAN LIQUCELL TO PREVENT FURTHER BREAKDOWN.
[2018-12-15] VITALS (41 sets, daily range): BP systolic 88–165; BP diastolic 31–105
--- NOTE | 2018-12-15 00:15 | NUR ---
Respiratory note: AT BEDSIDE FOR ROUTINE BIPAP CHECK, TITRATED FIO2 TO 80% STAN STODDARD MADE AWARE.
--- NOTE | 2018-12-15 00:15 | NUR ---
RT at bedside to decrease Fio2 to 80%.
[2018-12-15] MEDS: IPRATROPIUM BROM 0.5 MG/2.5ML INH SOL NEB SCH ×6 (02:35→22:19)
[2018-12-15] MEDS: ALBUTEROL SULF 2.5 MG/0.5ML(0.5%) NEB SOLN NEB SCH ×6 (02:35→22:18)
[2018-12-15 03:50] LABS: Basophils # (auto) 0.1 uL; Basophils % (auto) 1.1 % (0.0-2.0); Eosinophils # (auto) 0.3 uL; Eosinophils % (auto) 3.1 % (0.0-7.0); Hematocrit 46.5 % (41.0-53.0); Hemoglobin 15.7 g/dL (13.5-17.5); Lymphocytes # (auto) 1.4 uL; Lymphocytes % (auto) 16.3 % (10.0-50.0); Mean Corpuscular Hgb Conc. 33.7 g/dL (32.0-36.0); Mean Corpuscular Volume 86.2 fL (80.0-100.0); Monocytes # (auto) 0.8 uL; Monocytes % (auto) 9.8 % (0.0-12.0); Neutrophils % (auto) 69.7 % (37.0-80.0); Nucleated Red Blood Cells % 0.2 %; Platelet Count (auto) 309 10^3/uL (140-450); Red Cell Distribution Width 17.7 % (11.8-14.3); White Blood Cell 8.6 10^3/uL (4.4-10.8)
[2018-12-15 04:15] LABS: Potassium 4.2 mmol/L (3.5-5.1)
--- NOTE | 2018-12-15 04:15 | NUR ---
Patient reporting numbness/tingling in left lower ext., specifically in foot. Left great toe and second toe noted more pale in color, no dorsalis pedis pulse noted with doppler at this time, no sensation intact, cap refill >3 seconds. STAN Duggan at bedside.
--- NOTE | 2018-12-15 04:15 | NUR ---
REPORT RECEIVED FROM ARLYN PIERCE.
[2018-12-15 04:22] LABS: Albumin 2.8 g/dL (3.4-5.0); BUN/Creatinine Ratio 13.3; Bilirubin, Total 2.9 mg/dL (0.2-1.0); Calcium 9.2 mg/dL (8.5-10.1); Total Protein 7.7 g/dL (6.4-8.2)
--- NOTE | 2018-12-15 04:25 | NUR ---
Respiratory note: PT REQUESTED TO BE TAKEN OFF BIPAP. PLACED PT BACK ON HFNC, ON 60LPM WITH 90% FIO2. POX 90-91%, HR 109-112. RN JOPHY AT BEDSIDE AND AWARE.
[2018-12-15] MEDS: ALPRAZolam 0.25 MG TAB PO PRN (05:06)
--- NOTE | 2018-12-15 05:15 | NUR ---
HOSPITALIST MARK CARTON FILLER CALLED BACK. INFORMED HIM ABOUT PAIN AND NUMBNESS ON ON LT.LEG AND NO PULSE. ORDER RECEIVED FOR STAT ARTERIAL ULTRASOUND OF LT.LEG.
[2018-12-15] MEDS: HYDROcodone-ACET 5/325MG TAB PO PRN ×2 (05:17→16:46)
--- NOTE | 2018-12-15 05:35 | NUR ---
TALKED TO [facility] VASCULAR GLOBAL HEAD ADVERTISER SOLUTIONS REGARDING ULTRASOUND.
--- NOTE | 2018-12-15 06:00 | NUR ---
REGIONAL CRA AT BEDSIDE.
--- NOTE | 2018-12-15 06:50 | NUR ---
CALLED BACK INFORMED HIM ABOUT ULTRASOUND REPORT. MD ORDERED TO CONSULT .
--- NOTE | 2018-12-15 07:15 | NUR ---
PAGED REGARDING CONSULT.
--- NOTE | 2018-12-15 07:25 | NUR ---
CALLED BACK INFORMED HIM ABOUT THE REASON FOR CONSULT. MD SAID HE WILL COME AND SEE THE PATIENT.
--- NOTE | 2018-12-15 07:29 | NUR ---
Dr. Anthony at bedside.
--- NOTE | 2018-12-15 07:51 | NUR ---
Assumed care of patient. Patient is AAOX4. Vital signs are stable. No s/s of distress noted. Patient attached to all monitors. Safety measures in place. Patient advised of POC. Patient verbalized understanding. Leg appears cold to to touch, purple discoloration noted. Pedal pulses appears absent. Bed in lowest locked position with side rails up X2. Call oakes within reach. Safety maintained, will continue to monitor.
--- NOTE | 2018-12-15 08:24 | NUR ---
Dr. Mcmahon at bedside.
--- NOTE | 2018-12-15 09:08 | NUR ---
0912/15/18 I called [facility] [place] [phone] and spoke with Pako-she does not know if they can handle this patient due to his weight/girth-she is going to find out and give me a call back-I did provide her with contact information for Dr. Yon Mcmahon as well as the nurse's station. I also called [facility] [phone] and spoke with Colleen, she is not sure if they can handle a patient of this weight/girth-she will find out and give me a call back-faxed requested clinical items to [phone]. Addendum: 12/15/18 at 0909 by Camilla Harvey RN [facility] covers [facility] in [place] as well as [facility].
--- NOTE | 2018-12-15 09:09 | NUR ---
Respiratory note: switched pt mask to nasal mask due to pressure sore on bridge of nose.
--- NOTE | 2018-12-15 09:37 | NUR ---
0930 12/15/18 I called [facility] transfer center [phone] and left a message asking if they can accommodate this patient. I called [facility] [phone] (They cover both [facility] as well as [facility]) and spoke with Pako, she said that neither hospital can accommodate this patient due to his weight.
--- NOTE | 2018-12-15 09:51 | NUR ---
2130 12/15/18 I called [facility] in [place] [phone] and spoke with Odette, she said they may be able to handle a patient of this size, faxed requested items to [phone].
[2018-12-15] MEDS: FAMOTIDINE 20 MG TAB PO SCH (10:00)
[2018-12-15] MEDS: DILTIAZEM HCL 120MG ER CAP PO SCH (10:00)
[2018-12-15] MEDS: ALPRAZolam 0.5 MG TAB PO PRN ×2 (10:00→16:46)
[2018-12-15] MEDS: ENOXAPARIN SOD 150 MG/1 ML SYRINGE SC SCH (10:00)
--- NOTE | 2018-12-15 11:36 | NUR ---
NUTRITION ASSESSMENT NOTES Please refer to link notes of nutrition screen form filed under the intervention section of the plan of care for further details. Est. Needs based on AdBW (123 kg): 1850 kcal to 2450 kcal (15-20 kcal/kgAdBW), 123 gms to 147 gms pro (1.0-1.2 gms/kgAdBW). Will continue to monitor pertinent labs and reassess nutrient need prn Thank you. Addendum: 12/15/18 at [address] Amended: Links added.
[2018-12-15] MEDS ORDERED: LIDOCAINE 2%HCL (LOCAL ANESTH.) INJ 20ML MDV ONE (11:49)
[2018-12-15] MEDS ORDERED: IOHEXOL 300 MG/ML 100ML BOTTLE IJ ONE (12:00)
--- NOTE | 2018-12-15 12:05 | NUR ---
1200 12/15/18 I received a call from Colleen at [facility] letting me know that they can not accommodate this patient due to his weight-he will not fit in their CT Scan machine.
--- NOTE | 2018-12-15 12:06 | NUR ---
Ultrasound team at bedside.
--- NOTE | 2018-12-15 12:15 | NUR ---
Dr. Lynn and Dr. Lyle at bedside updating the patient and family members regarding the POC.
--- NOTE | 2018-12-15 15:06 | NUR ---
[facility] is on will-call (critical care transport) pending room assignment at [facility].
--- NOTE | 2018-12-15 15:32 | NUR ---
I called [facility] transfer center to check on bed availability, there are no beds available yet-they will contact nurse's station when one becomes available.
--- NOTE | 2018-12-15 16:06 | NUR ---
Respiratory note: pt REQUEST TO COME OFF BIPAP. PT PLACED ON HIGH FLOW 60 LPM AND FI02 100%.
--- NOTE | 2018-12-15 17:16 | NUR ---
Dr. Lord at bedside.
--- NOTE | 2018-12-15 18:45 | NUR ---
Dr. Lynn paged via [employer], awaiting call back.
--- NOTE | 2018-12-15 19:23 | NUR ---
Spoke with [facility] transfer center, per the transfer nurse, they're are no ICU beds or in the vascular department at this moment. Accepting physican is Dr. Baxter.
--- NOTE | 2018-12-15 19:32 | NUR ---
Dr. Lynn updated regarding the families concerns. states, to call Dr. Baxter to see if patient can be started on a thrombolytic. Spoke with [facility] transferring nurse, who stated, Dr. Baxter is working to see if patient can be transferred to the surgical ICU.
--- NOTE | 2018-12-15 20:00 | NUR ---
TURN PATIENT REFUSED REPOSITIONING. TEACHING IS GIVEN ON THE BENEFITS OF REPOSITIONING.
--- NOTE | 2018-12-15 20:15 | NUR ---
PULSES LT AND RT RADIAL PULSES, RT PEDAL PULSES, RT POSTERIOR TIBIAL PULSES AND LT POPLITEAL PULSES ARE AUDIBLE WITH DOPPLER. PULSES ARE ABSENT ON LT PEDAL P, LT POSTERIOR TIBIAL.
[2018-12-15 20:51] LABS: Basophils # (auto) 0.1 uL; Basophils % (auto) 0.8 % (0.0-2.0); Eosinophils # (auto) 0.1 uL; Hemoglobin 16.1 g/dL (13.5-17.5); Lymphocytes # (auto) 1.1 uL; Mean Corpuscular Hemoglobin 28.6 pg (28.0-32.0); Mean Corpuscular Hgb Conc. 32.1 g/dL (32.0-36.0); Mean Corpuscular Volume 88.9 fL (80.0-100.0); Monocytes # (auto) 0.9 uL; Monocytes % (auto) 8.7 % (0.0-12.0); Neutrophils # (auto) 8.5 uL; Neutrophils % (auto) 79.5 % (37.0-80.0); Nucleated Red Blood Cells % 0.1 %; Platelet Count (auto) 314 10^3/uL (140-450); Red Blood Cells 5.62 10^6/uL (4.5-5.90); Red Cell Distribution Width 17.7 % (11.8-14.3); White Blood Cell 10.7 10^3/uL (4.4-10.8)
[2018-12-15] MEDS ORDERED: HEPARIN SODIUM (PORCINE) 5000 UNITS/ML 1ML VIAL IV ONE (20:55)
[2018-12-15] MEDS ORDERED: HEPARIN DRIP/D5W 100UNITS/ML 250 ML IV ONE (20:58)
[2018-12-15] MEDS ORDERED: HEPARIN DRIP/D5W 100UNITS/ML 250 ML IV SCH (21:00)
[2018-12-15 21:05] LABS: INR 1.14 (0.9-1.15); Partial Thromboplastin Time 30.3 sec (23.64-32.05)
--- NOTE | 2018-12-15 21:45 | NUR ---
BED AVAILABLE RECEIVED CALL FROM SHANT FROM [facility] WITH BED . UNIT 8100 ROOM 11 BED 1. [facility] NEED[facility] TO ARRANGE TRANSPORT.
--- NOTE | 2018-12-15 22:00 | NUR ---
TURN PATIENT REFUSED REPOSITIONING. TEACHING IS GIVEN ON THE BENEFITS OF REPOSITIONING.
--- NOTE | 2018-12-15 22:00 | NUR ---
[facility] SAID THAT THEY CAN'T TAKE THE PATIENT WITH 100% FIO2 ON BIPAP, PATIENT NEEDS TO BE INTUBATED FOR TRANSPORT OTHERWISE PATIENT NEEDS TO TRANSPORT VIA AIR AMBULANCE.
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
--- NOTE | 2018-12-15 22:40 | NUR ---
CALLED 'S CELL PHONE TO ASK ABOUT WHETHER THE PATIENT CAN BE TRANSFERRED VIA AIR AMBULANCE. HE DIDN'T ANSWER THE CALL. LEFT MESSAGE.
[2018-12-15] MEDS ORDERED: SUCCINYLCHOLINE CHLORIDE 20 MG/ML 10ML VIAL IV ONE ×6 (22:53→23:17)
[2018-12-15] MEDS ORDERED: ETOMIDATE (2MG/ML) 20ML VIAL IV ONE ×2 (22:54→23:09)
[2018-12-15] MEDS ORDERED: PROPOFOL 100 ML IV ONE (22:56)
--- NOTE | 2018-12-15 23:00 | NUR ---
RECEIVED CALL FROM [facility] NOTIFIED THEM ABOUT THE PLAN FOR INTUBATION. PER [facility] PINION STAKER, THEY WILL TRANSPORT THE PATIENT ONCE PATIENT'S SATURATION ABOVE 92 AND FIO2 80 OR LESS.
[2018-12-15] MEDS ORDERED: MIDAZOLAM HCL 5 MG/ML-1ML VIAL ONE (23:08)
[2018-12-15] MEDS: PROPOFOL 100 ML IV SCH (23:15)
[2018-12-15] MEDS ORDERED: MIDAZOLAM HCL 5 MG/ML-1ML VIAL IV ONE (23:15)
--- NOTE | 2018-12-15 23:15 | NUR ---
INTUBATION PATIENT IS INTUBATED BY ON THIRD TRIAL. Addendum: 12/16/18 at 0944 by Silver Martins RN PATIENT IS INTUBATED BECAUSE [facility] WON'T TRANSPORT THE PATIENT WITH BIPAP 100% FI02. (PER HOWARD PIERCE, TOLD HER THAT PATIENT CAN BE INTUBATED FOR TRANSFER)
[2018-12-15] MEDS: MIDAZOLAM DRIP 50 mg/50mL 50 ML IV SCH (23:18)
--- NOTE | 2018-12-15 23:30 | NUR ---
DESATURATION/COUGHING PATIENT COUGHING, NOT TOLERATING VENT. AT BEDSIDE. MD WANTS VERSED DRIP AND PROPOFOL DRIP.
--- NOTE | 2018-12-15 23:30 | NUR ---
VEE FREEMAN CALLED J[facility] AND UPDATED ON PT'S CONDITION, INTUBATION , SATURATION AND WAITING FOR AIR LIFTING AUTHORIZATION. JESSA SAID SHE WILL NOTIFY THE ACCEPTING MD.
[2018-12-15] MEDS ORDERED: MIDAZOLAM DRIP 50 mg/50mL 50 ML IV ONE (23:31)
[2018-12-15] MEDS ORDERED: fentaNYL Drip 2500mCg/250mlNS 250 ML IV SCH (23:39)
--- NOTE | 2018-12-15 23:39 | NUR ---
Sent message to Dr. Torres for authorization for airlift if patient unable to go via ambulance due to low saturations. Awaiting reply or call back.
--- NOTE | 2018-12-15 23:55 | NUR ---
No response from Dr. Torres
[2018-12-16] VITALS (41 sets, daily range): BP systolic 88–122; BP diastolic 30–77
--- NOTE | 2018-12-16 | NUR ---
TURN PATIENT IS DESATURATING. UNABLE TO TURN PATIENT.
--- NOTE | 2018-12-16 | NUR ---
DESATURATION/COUGHING PATIENT COUGHING, NOT TOLERATING VENT. AT BEDSIDE. MD WANTS THE SEDATION TO BE MAXIMUM.
--- NOTE | 2018-12-16 00:03 | NUR ---
Sent message to Dr. Torres to call ICU STAT regarding STAT need for side laster tack and Dr. Garcia not returning the pages/messages.
--- NOTE | 2018-12-16 00:34 | NUR ---
No response from Dr. Torres. [facility] remains on standby until saturations reach desired number
[2018-12-16] MEDS: MIDAZOLAM DRIP 50 mg/50mL 50 ML IV SCH ×2 (01:42→05:24)
[2018-12-16] MEDS: PROPOFOL 100 ML IV SCH ×4 (01:43→05:46)
[2018-12-16] MEDS ORDERED: FUROSEMIDE 40 MG/4 ML VIAL ONE (01:52)
[2018-12-16] MEDS ORDERED: FUROSEMIDE 40 MG/4 ML VIAL IV ONE (02:00)
[2018-12-16] MEDS: ALBUTEROL SULF 2.5 MG/0.5ML(0.5%) NEB SOLN NEB SCH ×2 (02:21→06:50)
[2018-12-16] MEDS: IPRATROPIUM BROM 0.5 MG/2.5ML INH SOL NEB SCH ×2 (02:21→06:49)
[2018-12-16 03:30] LABS: Basophils # (auto) 0.1 uL; Basophils % (auto) 1.2 % (0.0-2.0); Eosinophils # (auto) 0.2 uL; Eosinophils % (auto) 1.7 % (0.0-7.0); Hematocrit 48.3 % (41.0-53.0); Hemoglobin 16.2 g/dL (13.5-17.5); Lymphocytes # (auto) 1.6 uL; Lymphocytes % (auto) 13.3 % (10.0-50.0); Mean Corpuscular Hemoglobin 29.3 pg (28.0-32.0); Mean Corpuscular Hgb Conc. 33.6 g/dL (32.0-36.0); Mean Corpuscular Volume 87.3 fL (80.0-100.0); Monocytes # (auto) 1.1 uL; Neutrophils % (auto) 74.8 % (37.0-80.0); Nucleated Red Blood Cells % 0.1 %; Platelet Count (auto) 337 10^3/uL (140-450); Red Blood Cells 5.54 10^6/uL (4.5-5.90)
--- NOTE | 2018-12-16 03:45 | NUR ---
Patient bathe/linen change Patient given complete bath. Skin integrity assessed for any changes. Linens changed. Patient repositioned for comfort.
[2018-12-16 03:51] LABS: Albumin 2.9 g/dL (3.4-5.0); BUN/Creatinine Ratio 11.9; Calcium 8.8 mg/dL (8.5-10.1); Potassium 4.5 mmol/L (3.5-5.1)
[2018-12-16 03:53] LABS: INR 1.11 (0.9-1.15)
[2018-12-16 03:54] LABS: Bilirubin, Total 2.4 mg/dL (0.2-1.0); Total Protein 7.9 g/dL (6.4-8.2)
[2018-12-16] MEDS ORDERED: HEPARIN SODIUM (PORCINE) 5000 UNITS/ML 1ML VIAL IV ONE ×2 (04:00→07:00)
--- NOTE | 2018-12-16 04:02 | NUR ---
VEE FREEMAN CALLED VEE FREEMAN AND UPDATES GIVEN.
--- NOTE | 2018-12-16 04:05 | NUR ---
0350- [facility] WAS CALLED AND GAVE THEM UPDATES ABOUT MECH VENT @ 80% FIO2 AND SATS AT 94-95%, WILL HIGH CLIMBER BETWEEN 0700 AND 0730. BROTHTERI NUNN WAS NOTIFIED, HOUSE JAIME PRESSLEY WAS NOTIFIED.
--- NOTE | 2018-12-16 06:50 | NUR ---
RECEIVED PHONE CALL FROM RECEIVED ORDERS FROM FOR HEPARIN DRIP 5000 UNITS/HR AND 5000UNITS BOLUS DUE TO PATIENT'S LOW PTT LEVEL AND OVER WEIGHT. CLARIFIED THE ORDER.
[2018-12-16] MEDS ORDERED: HEPARIN DRIP/D5W 100UNITS/ML 250 ML IV SCH ×2 (07:00→07:11)
--- NOTE | 2018-12-16 07:00 | NUR ---
HEPARIN ORDER CLARIFICATION PHARMACIST DISAGREED WITH HEPARIN 5000UNITS/HR ORDER. TALKED TO HUAN MACHADO AND HE TALKED TO PHARMACIST REGARDING THIS ORDER.
--- NOTE | 2018-12-16 07:45 | NUR ---
REPORT REPORT IS GIVEN TO LINO PIERCE IN [facility]([phone] ).
--- NOTE | 2018-12-16 08:00 | NUR ---
REPORT REPORT RECEIVED FROM ZAC RNALEJANDRA. BEDSIDE CHECK DONE.
--- NOTE | 2018-12-16 08:30 | NUR ---
ASSESSMENT PT LAYING IN BED WITH EYES CLOSED AND SEDATED ON VERSED AT 15 MG/HR AND DIPRIVAN AT 50 MCG/KG/H. ON THE VENTILATOR WITH 7 FR ETT/24 AT THE LIP, PRESSURE CONTROL WITH RATE OF 16, PRESSURE OF 28, PEEP OF 10 AND 80% FIO2. LUNGS CLEAR AND DIMINISHED THROUGHOUT. SUCTIONED VIA ETT FOR SCANT THIN CLEAR FLUID. O2 SAT OF 93%. TELE SR [address] ELEVATION IN LEAD I. BLE DUSKY RED IN COLOR AND SLIGHTLY COOL TO THE TOUCH. WEAK DOPPLER PULSES TO THE RIGHT FOOT AND STRONG DOPPLER TO THE LEFT AND RIGHT POPLITEAL. UNABLE TO GET ANY PULSES TO THE LEFT FOOT EVEN WITH THE DOPPLER. LEFT RADIAL STRONG DOPPLER. NO SCDS DUE TO DVT LEFT POPLITEAL VEIN. ABD SOFT WITH HYPOACTIVE BOWEL SOUNDS. NO OGT/NGT PLACED PT ON HEPARIN DRIP AT 5000 UNIT/HR PER ORDER OF DR SAXENA. . LAST BM WAS 12/09. CASTRO CATHETER DRAINING CLOUDY PINK TINGED MILKY SRINIVASAN URINE WITH LOTS OF SEDIMENT. ON SPECIALTY BED, [facility] B[facility]. AWAITING ARRIVAL OF [facility] TRANSPORT TEAM TO TRANSPORT PT TO [facility].
--- NOTE | 2018-12-16 08:42 | NUR ---
[facility]SP[facility] HERE AND REPORT GIVEN TO STAN LEARY.
--- NOTE | 2018-12-16 09:50 | NUR ---
PT OUT VIA [facility] TRANSPORT WITH [facility] AND PT ON [facility], CONNECTED TO PORTABLE CHAIR FRAME BUILDER AND PORTABLE VENTILATOR. VS: 98.5 83-16-97% O2 SAT AND 111/58. PT'S AND MOTHER HERE AND GIVEN TRANSFER INFO AND BED ASSIGNMENT AT [facility].
== END 2018-12-16 09:15 | disposition short-term general hospital (02) | DRG 208 ==
LOC: EDBD 14:35 → ER 14:44 → TELE 14:45 → UNDOADMIN 12-10 14:45 → TELE 12-10 14:45 → ICU WEST 12-10 23:47
PROVIDERS: ADMIT Nurse Practitioner Acute Care; ATTEND Family Medicine
PROC: 5A09357 Assistance with Respiratory Ventilation, Less than 24 Consecutive Hours, Continuous Positive Airway Pressure (ICD-10-PCS; principal; 2018-12-10)
PROC: 5A09357 Assistance with Respiratory Ventilation, Less than 24 Consecutive Hours, Continuous Positive Airway Pressure (ICD-10-PCS; 2018-12-11)
PROC: 5A09457 Assistance with Respiratory Ventilation, 24-96 Consecutive Hours, Continuous Positive Airway Pressure (ICD-10-PCS; 2018-12-12)
PROC: 5A09357 Assistance with Respiratory Ventilation, Less than 24 Consecutive Hours, Continuous Positive Airway Pressure (ICD-10-PCS; 2018-12-13)
PROC: 5A09457 Assistance with Respiratory Ventilation, 24-96 Consecutive Hours, Continuous Positive Airway Pressure (ICD-10-PCS; 2018-12-14)
PROC: 5A1935Z Respiratory Ventilation, Less than 24 Consecutive Hours (ICD-10-PCS; 2018-12-16)
PROC: 0BH17EZ Insertion of Endotracheal Airway into Trachea, Via Natural or Artificial Opening (ICD-10-PCS; 2018-12-16)
DX: J96.01 Acute respiratory failure with hypoxia (principal); I26.09 Other pulmonary embolism with acute cor pulmonale; I21.A1 Myocardial infarction type 2; J18.9 Pneumonia, unspecified organism; I82.432 Acute embolism and thrombosis of left popliteal vein; E87.4 Mixed disorder of acid-base balance; J44.0 Chronic obstructive pulmonary disease with (acute) lower respiratory infection; J98.11 Atelectasis; Z68.45 Body mass index [BMI] 70 or greater, adult; E66.01 Morbid (severe) obesity due to excess calories; D75.1 Secondary polycythemia; E29.1 Testicular hypofunction; G47.33 Obstructive sleep apnea (adult) (pediatric); I11.0 Hypertensive heart disease with heart failure; I27.20 Pulmonary hypertension, unspecified; I50.9 Heart failure, unspecified; I70.208 Unspecified atherosclerosis of native arteries of extremities, other extremity; I87.2 Venous insufficiency (chronic) (peripheral); I87.8 Other specified disorders of veins; R31.0 Gross hematuria; Z79.01 Long term (current) use of anticoagulants; Z80.0 Family history of malignant neoplasm of digestive organs; Z82.49 Family history of ischemic heart disease and other diseases of the circulatory system; Z98.84 Bariatric surgery status; Z91.19 Patient's noncompliance with other medical treatment and regimen
CPT/HCPCS: 36415; 36600; 71045; 80053; 80061; 82607; 82728; 82746; 82805; 83540; 83550; 83880; 84443; 84484; 85025; 85301; 85302; 85305; 85306; 85379; 85610; 85730; 87070; 87077; 87081; 87205; 93005; 93306; 93926; 93930; 93970; 93971; 94002; 94003; 94640; 94660; 96365; 96366; 96372; 96375; 96376; 99291; 99292; G0378; J0330; J0696; J2250; J2704

== ENCOUNTER 2023-12-29 09:47 | Inpatient (IN) | payer BC ==
[~2023-12-29] VITALS: Ht 190.5 cm; Wt 189.9 kg
[2023-12-29] VITALS (7 sets, daily range): BP systolic 125; BP diastolic 76; PULSE 100–113; RESP 17–18; TEMP 98.1; O2SAT 79–100
[2023-12-29] MEDS: SODIUM CHLORIDE 0.9% 1,000 ML IV ONE (10:51)
[2023-12-29 11:16] LABS: Alkaline Phosphatase 114 U/L (46-116); Chloride 94 mmol/L (98-107); Potassium 2.8 mmol/L (3.5-5.1); Sodium 130 mmol/L (136-145)
[2023-12-29 11:28] LABS: Basophils # (auto) 0.1 10 ^3/uL (0-0.2); Basophils % (auto) 0.4 % (0.0-2.0); Eosinophils # (auto) 0.1 10 ^3/uL (0-0.8); Eosinophils % (auto) 0.7 % (0.0-7.0); Hematocrit 35.7 % (41.0-53.0); Hemoglobin 12.6 g/dL (13.5-17.5); Lymphocytes # (auto) 1.4 10 ^3/uL (0.4-5.4); Lymphocytes % (auto) 10.8 % (10.0-50.0); Mean Corpuscular Hemoglobin 39.8 pg (28.0-32.0); Mean Corpuscular Hgb Conc. 35.5 g/dL (32.0-36.0); Mean Corpuscular Volume 112.1 fL (80.0-100.0); Monocytes # (auto) 1.5 10 ^3/uL (0-1.3); Monocytes % (auto) 11.6 % (0.0-12.0); Neutrophils # (auto) 9.8 10 ^3/uL (1.6-8.6); Neutrophils % (auto) 76.5 % (37.0-80.0); Nucleated Red Blood Cells % 0.2 %; Platelet Count (auto) 387 10^3/uL (140-450); Red Blood Cells 3.18 10^6/uL (4.5-5.90); Red Cell Distribution Width 20.1 % (11.8-14.3); White Blood Cell 12.7 10^3/uL (4.4-10.8)
[2023-12-29 12:36] LABS: Alanine Aminotransferase 56 U/L (7-40); Albumin 3.1 g/dL (3.2-4.8); Anion Gap 13 (5-15); Aspartate Aminotransferase 198 U/L (13-40); BUN/Creatinine Ratio 10.6 (10.0-20.0); Blood Urea Nitrogen 14 mg/dL (9-23); Carbon Dioxide 23 mmol/L (20-31); Glucose 164 mg/dL (74-106); Lipase 90 U/L (12-53); Total Protein 7.6 g/dL (5.7-8.2)
[2023-12-29 12:38] LABS: Bilirubin, Total > 35.0 mg/dL (0.2-1.0)
[2023-12-29 12:43] LABS: Lactic Acid w/Reflex 5.2 mmol/L (0.4-2.0)
[2023-12-29] MEDS: IOHEXOL 300 MG/ML 100ML BOTTLE IJ ONE (12:49)
[2023-12-29 16:18] LABS: Urine Bacteria FEW /hpf (None Seen); Urine Blood Negative /uL (Negative); Urine Clarity Turbid (Clear); Urine Color Dark-Yellow (Yellow); Urine Mucus FEW (None Seen); Urine Protein, UAD Negative (Negative); Urine Specific Gravity 1.033 (1.001-1.035); Urine Urobilinogen 2 mg/dL (Negative); Urine WBC 3 /hpf (0 - 3); Urine pH 6.5 (5.0-9.0)
[2023-12-29] MEDS ORDERED: ONDANSETRON HCL 4 MG/2 ML VIAL IV PRN (16:45)
[2023-12-29] MEDS ORDERED: IBUPROFEN 600 MG TAB PO PRN (16:45)
[2023-12-29] MEDS ORDERED: HYDROcodone-ACET 5/325MG TAB PO PRN (16:45)
[2023-12-29] MEDS ORDERED: DOCUSATE SOD 100 MG CAP PO PRN (16:45)
[2023-12-29] MEDS ORDERED: NITROGLYCERIN 0.4 MG SL TAB SL PRN (17:30)
[2023-12-29] MEDS ORDERED: MORPHINE SULFATE INJ 2 MG/ml SYRG IV PRN (17:30)
[2023-12-29] MEDS: LACTULOSE 20Gm/30ML SOLN PO ONE (17:33)
[2023-12-29] MEDS: SODIUM CHLORIDE 0.9% 1,000 ML IV SCH (17:36)
[2023-12-29] MEDS: LACTULOSE 20Gm/30ML SOLN PO SCH (17:36)
[2023-12-29] MEDS: POTASSIUM CHL 20MEQ/100ML 100 ML IV SCH (17:36)
[2023-12-29] MEDS: CEFEPIME 1GM/ 50ML 50 ML IV ONE (18:01)
[2023-12-30] VITALS (9 sets, daily range): BP systolic 103–113; BP diastolic 52–79; PULSE 97–107; RESP 18–22; TEMP 97.2–98; O2SAT 97–100
[2023-12-30 06:06] LABS: INR 2.36 (0.9-1.15); Prothrombin Time 23.5 sec (9.3-11.8)
[2023-12-30 06:09] LABS: Basophils # (auto) 0.1 10 ^3/uL (0-0.2); Neutrophils # (auto) 9.1 10 ^3/uL (1.6-8.6)
[2023-12-30 06:10] LABS: Basophils % (auto) 0.8 % (0.0-2.0); Eosinophils # (auto) 0.2 10 ^3/uL (0-0.8); Eosinophils % (auto) 1.4 % (0.0-7.0); Lymphocytes # (auto) 1.3 10 ^3/uL (0.4-5.4); Lymphocytes % (auto) 10.7 % (10.0-50.0); Mean Corpuscular Hemoglobin 40.2 pg (28.0-32.0); Mean Corpuscular Hgb Conc. 36.2 g/dL (32.0-36.0); Mean Corpuscular Volume 111.2 fL (80.0-100.0); Monocytes # (auto) 1.7 10 ^3/uL (0-1.3); Monocytes % (auto) 13.7 % (0.0-12.0); Neutrophils % (auto) 73.4 % (37.0-80.0); Nucleated Red Blood Cells % 0.2 %; Platelet Count (auto) 326 10^3/uL (140-450); Red Blood Cells 2.97 10^6/uL (4.5-5.90); Red Cell Distribution Width 19.7 % (11.8-14.3); White Blood Cell 12.5 10^3/uL (4.4-10.8)
[2023-12-30 06:18] LABS: Alkaline Phosphatase 105 U/L (46-116); Calcium 8.8 mg/dL (8.7-10.4); Chloride 97 mmol/L (98-107); Potassium 2.7 mmol/L (3.5-5.1); Sodium 132 mmol/L (136-145)
[2023-12-30 06:19] LABS: Bilirubin, Total 33.3 mg/dL (0.2-1.0)
[2023-12-30 06:20] LABS: Alanine Aminotransferase 50 U/L (7-40); Albumin 2.8 g/dL (3.2-4.8); Anion Gap 11 (5-15); Aspartate Aminotransferase 172 U/L (13-40); BUN/Creatinine Ratio 11.6 (10.0-20.0); Blood Urea Nitrogen 14 mg/dL (9-23); Carbon Dioxide 24 mmol/L (20-31); Glucose 131 mg/dL (74-106); Lipase 86 U/L (12-53); Total Protein 6.8 g/dL (5.7-8.2)
[2023-12-30 06:33] LABS: Anisocytosis Slight; Macrocytosis Moderate
[2023-12-30 06:36] LABS: Large Platelets FEW; Platelet Estimate Adequa
[2023-12-30 08:39] LABS: Bilirubin, Direct > 15.0 mg/dL (<0.3)
[2023-12-30] MEDS: LACTULOSE 20Gm/30ML SOLN PO SCH (09:49)
[2023-12-30] MEDS: cefTRIAXone 1GM/50ML D5W 50 ML IV SCH (09:50)
[2023-12-30] MEDS ORDERED: ASPirin 81 mg TAB PO SCH (10:00)
[2023-12-30] MEDS: POTASSIUM CHLORIDE 80 MEQ, LIDOCAINE 1% (LOCAL ANESTH.) 6 ML in SODIUM CHL 0.9% 500 ML IV ONE (10:03)
[2023-12-30] MEDS: SODIUM CHLORIDE 0.9% 1,000 ML IV SCH (11:33)
[2023-12-30] MEDS: PIPERACILLIN-TAZOB 3.375GM 100 ML IV SCH (17:37)
[2023-12-30] MEDS: methylPREDNISolone SOD SUCC 40 MG/ML VL IV SCH (22:07)
[2023-12-30] MEDS: URSODIOL 300 MG CAP PO SCH (22:07)
[2023-12-31] VITALS (9 sets, daily range): BP systolic 102–111; BP diastolic 52–71; PULSE 91–99; RESP 18–21; TEMP 97.8–98.8; O2SAT 90–99
[2023-12-31 09:15] LABS: Hepatitis B Core Total AB Negative (Negative)
[2023-12-31] MEDS: POTASSIUM CHL 20 Meq TABLET PO SCH (09:41)
[2023-12-31 09:43] LABS: Hepatitis A Ab IgM Negative; Hepatitis A Total Antibody Positive (Negative); Hepatitis B Core IgM Negative; Hepatitis B Surface Antibody Positive (Negative); Hepatitis B Surface Antigen Negative (Negative); Hepatitis C Antibody Negative (Negative)
[2023-12-31] MEDS: MAGNESIUM OXIDE 400 MG TAB PO ONE (09:48)
[2023-12-31 10:43] LABS: Eosinophils # (auto) 0 10 ^3/uL (0-0.8); Nucleated Red Blood Cells % 0.1 %; Platelet Count (auto) 340 10^3/uL (140-450)
[2023-12-31 10:45] LABS: Basophils # (auto) 0 10 ^3/uL (0-0.2); Basophils % (auto) 0.2 % (0.0-2.0); Eosinophils % (auto) 0.1 % (0.0-7.0); Hematocrit 34.5 % (41.0-53.0); Hemoglobin 12.3 g/dL (13.5-17.5); Lymphocytes # (auto) 0.8 10 ^3/uL (0.4-5.4); Mean Corpuscular Hemoglobin 40.2 pg (28.0-32.0); Mean Corpuscular Hgb Conc. 35.6 g/dL (32.0-36.0); Mean Corpuscular Volume 112.9 fL (80.0-100.0); Monocytes # (auto) 0.5 10 ^3/uL (0-1.3); Monocytes % (auto) 3.9 % (0.0-12.0); Neutrophils # (auto) 10.8 10 ^3/uL (1.6-8.6); Neutrophils % (auto) 88.8 % (37.0-80.0); Red Blood Cells 3.06 10^6/uL (4.5-5.90); Red Cell Distribution Width 19.9 % (11.8-14.3); White Blood Cell 12.2 10^3/uL (4.4-10.8)
[2023-12-31 11:04] LABS: Alkaline Phosphatase 121 U/L (46-116); Bilirubin, Total 34.8 mg/dL (0.2-1.0); Calcium 8.8 mg/dL (8.7-10.4); Chloride 99 mmol/L (98-107); Potassium 3.2 mmol/L (3.5-5.1); Sodium 130 mmol/L (136-145)
[2023-12-31 12:16] LABS: Anion Gap 10 (5-15); BUN/Creatinine Ratio 11.9 (10.0-20.0)
[2023-12-31 12:19] LABS: Glucose 238 mg/dL (74-106)
[2023-12-31 12:20] LABS: Blood Urea Nitrogen 14 mg/dL (9-23); Carbon Dioxide 21 mmol/L (20-31)
[2023-12-31 12:21] LABS: Alanine Aminotransferase 54 U/L (7-40); Aspartate Aminotransferase 166 U/L (13-40); Total Protein 7.2 g/dL (5.7-8.2)
[2023-12-31 12:22] LABS: Albumin 2.8 g/dL (3.2-4.8)
[2023-12-31] MEDS: POTASSIUM CHLORIDE 80 MEQ, LIDOCAINE 1% (LOCAL ANESTH.) 6 ML in SODIUM CHL 0.9% 500 ML IV ONE (15:58)
[2024-01-01] VITALS (7 sets, daily range): BP systolic 103–125; BP diastolic 61–71; PULSE 85–97; RESP 16–19; TEMP 97.7–98.6; O2SAT 95–100
[2024-01-01 07:09] LABS: Alkaline Phosphatase 125 U/L (46-116); Calcium 9.1 mg/dL (8.7-10.4); Chloride 101 mmol/L (98-107); Potassium 3.6 mmol/L (3.5-5.1); Sodium 132 mmol/L (136-145)
[2024-01-01 07:13] LABS: Basophils # (auto) 0 10 ^3/uL (0-0.2); Basophils % (auto) 0.2 % (0.0-2.0); Eosinophils # (auto) 0 10 ^3/uL (0-0.8); Hematocrit 35.9 % (41.0-53.0); Hemoglobin 12.7 g/dL (13.5-17.5); Lymphocytes # (auto) 1.4 10 ^3/uL (0.4-5.4); Lymphocytes % (auto) 8.8 % (10.0-50.0); Mean Corpuscular Hemoglobin 39.8 pg (28.0-32.0); Mean Corpuscular Hgb Conc. 35.4 g/dL (32.0-36.0); Mean Corpuscular Volume 112.4 fL (80.0-100.0); Monocytes # (auto) 0.9 10 ^3/uL (0-1.3); Monocytes % (auto) 5.9 % (0.0-12.0); Neutrophils # (auto) 13.4 10 ^3/uL (1.6-8.6); Neutrophils % (auto) 85.1 % (37.0-80.0); Nucleated Red Blood Cells % 0.2 %; Platelet Count (auto) 397 10^3/uL (140-450); Red Blood Cells 3.19 10^6/uL (4.5-5.90); White Blood Cell 15.8 10^3/uL (4.4-10.8)
[2024-01-01 07:46] LABS: Alanine Aminotransferase 58 U/L (7-40); Albumin 2.9 g/dL (3.2-4.8); Anion Gap 10 (5-15); Aspartate Aminotransferase 156 U/L (13-40); BUN/Creatinine Ratio 13.3 (10.0-20.0); Blood Urea Nitrogen 18 mg/dL (9-23); Carbon Dioxide 21 mmol/L (20-31); Glucose 213 mg/dL (74-106); Total Protein 7.4 g/dL (5.7-8.2)
[2024-01-01 09:18] LABS: INR 2.18 (0.9-1.15); Prothrombin Time 21.8 sec (9.3-11.8)
[2024-01-01] MEDS: Juven Orange Powder PACKET 27.5gm PO SCH (18:33)
[2024-01-02] VITALS (8 sets, daily range): BP systolic 115–134; BP diastolic 77–85; PULSE 76–96; RESP 17–20; TEMP 97.4–97.9; O2SAT 95–100
[2024-01-02 06:36] LABS: Basophils # (auto) 0 10 ^3/uL (0-0.2); Eosinophils # (auto) 0 10 ^3/uL (0-0.8); Monocytes # (auto) 1.1 10 ^3/uL (0-1.3); Nucleated Red Blood Cells % 0.1 %
[2024-01-02 06:38] LABS: Basophils % (auto) 0.1 % (0.0-2.0); Hematocrit 36.4 % (41.0-53.0); Hemoglobin 12.8 g/dL (13.5-17.5); Lymphocytes # (auto) 1.2 10 ^3/uL (0.4-5.4); Lymphocytes % (auto) 7.1 % (10.0-50.0); Mean Corpuscular Hemoglobin 39.8 pg (28.0-32.0); Mean Corpuscular Hgb Conc. 35.1 g/dL (32.0-36.0); Monocytes % (auto) 6.6 % (0.0-12.0); Neutrophils # (auto) 14.1 10 ^3/uL (1.6-8.6); Neutrophils % (auto) 86.2 % (37.0-80.0); Platelet Count (auto) 376 10^3/uL (140-450); Red Blood Cells 3.21 10^6/uL (4.5-5.90); Red Cell Distribution Width 19.6 % (11.8-14.3); White Blood Cell 16.4 10^3/uL (4.4-10.8)
[2024-01-02 06:41] LABS: Mean Corpuscular Volume 113.4 fL (80.0-100.0)
[2024-01-02 06:54] LABS: Alkaline Phosphatase 133 U/L (46-116); Calcium 9.3 mg/dL (8.7-10.4); Chloride 101 mmol/L (98-107); Potassium 3.8 mmol/L (3.5-5.1); Sodium 132 mmol/L (136-145)
[2024-01-02 07:05] LABS: Bilirubin, Total 32.7 mg/dL (0.2-1.0)
[2024-01-02 07:26] LABS: Alanine Aminotransferase 68 U/L (7-40); Anion Gap 10 (5-15); Aspartate Aminotransferase 167 U/L (13-40); BUN/Creatinine Ratio 15.8 (10.0-20.0); Blood Urea Nitrogen 23 mg/dL (9-23); Carbon Dioxide 21 mmol/L (20-31); Glucose 259 mg/dL (74-106); Total Protein 7.5 g/dL (5.7-8.2)
[2024-01-02] MEDS: PIPERACILLIN-TAZOB 3.375GM 100 ML IV SCH (07:45)
[2024-01-02] MEDS: SODIUM CHLORIDE 0.9% 1,000 ML IV SCH (11:22)
[2024-01-02 13:23] LABS: Lactic Acid w/Reflex 3.1 mmol/L (0.4-2.0)
[2024-01-02 22:40] LABS: Lactic Acid w/Reflex 2.7 mmol/L (0.4-2.0)
[2024-01-03] VITALS (8 sets, daily range): BP systolic 120–138; BP diastolic 71–82; PULSE 87–93; RESP 17–20; TEMP 97.1–98; O2SAT 98–100
[2024-01-03 06:56] LABS: Hemoglobin 12.8 g/dL (13.5-17.5)
[2024-01-03 06:58] LABS: Hematocrit 35.9 % (41.0-53.0); Mean Corpuscular Hemoglobin 39.9 pg (28.0-32.0); Mean Corpuscular Hgb Conc. 35.5 g/dL (32.0-36.0); Mean Corpuscular Volume 112.3 fL (80.0-100.0); Platelet Count (auto) 313 10^3/uL (140-450); Red Cell Distribution Width 19.2 % (11.8-14.3); White Blood Cell 18.3 10^3/uL (4.4-10.8)
[2024-01-03 07:00] LABS: Band Neutrophils % (manual) 0; Basophils % (manual) 0 (0.0-2.0); Blast Cells 0; Eosinophils % (manual) 0 (0-7); Metamyelocytes % 0; Myelocytes % 0; Promyelocytes % 0; Reactive Lymphocytes 0
[2024-01-03 07:20] LABS: Alkaline Phosphatase 136 U/L (46-116); Calcium 9.2 mg/dL (8.7-10.4); Chloride 101 mmol/L (98-107)
[2024-01-03 07:21] LABS: Potassium 4.3 mmol/L (3.5-5.1); Sodium 130 mmol/L (136-145)
[2024-01-03 07:22] LABS: Bilirubin, Total 33.2 mg/dL (0.2-1.0)
[2024-01-03 08:19] LABS: Alanine Aminotransferase 74 U/L (7-40); Albumin 3.1 g/dL (3.2-4.8); Anion Gap 9 (5-15); Aspartate Aminotransferase 160 U/L (13-40); BUN/Creatinine Ratio 17.2 (10.0-20.0); Blood Urea Nitrogen 26 mg/dL (9-23); Carbon Dioxide 20 mmol/L (20-31); Glucose 326 mg/dL (74-106); Total Protein 7.4 g/dL (5.7-8.2)
[2024-01-03] MEDS: methylPREDNISolone SOD SUCC 40 MG/ML VL IV ONE (08:49)
[2024-01-03 09:23] LABS: Lymphocytes % (manual) 5 (10.0-50.0); Monocytes % (manual) 16 (0-12); Platelet Estimate Adequate
[2024-01-04] VITALS (7 sets, daily range): BP systolic 119–128; BP diastolic 67–79; PULSE 65–98; RESP 18–20; TEMP 97.4–98.6; O2SAT 89–100
[2024-01-04] MEDS ORDERED: methylPREDNISolone SOD SUCC 40 MG/ML VL IV SCH (05:00)
[2024-01-04] MEDS: predniSONE 20 MG TAB PO SCH (08:59)
[2024-01-04 09:00] LABS: Basophils # (auto) 0 10 ^3/uL (0-0.2); Basophils % (auto) 0.1 % (0.0-2.0); Eosinophils # (auto) 0 10 ^3/uL (0-0.8); Hematocrit 36.8 % (41.0-53.0); Hemoglobin 13.2 g/dL (13.5-17.5); Lymphocytes # (auto) 1.2 10 ^3/uL (0.4-5.4); Monocytes # (auto) 2.3 10 ^3/uL (0-1.3); Monocytes % (auto) 9.5 % (0.0-12.0); Neutrophils # (auto) 20.5 10 ^3/uL (1.6-8.6); Neutrophils % (auto) 85.4 % (37.0-80.0); Nucleated Red Blood Cells % 0.1 %; Platelet Count (auto) 340 10^3/uL (140-450); Red Blood Cells 3.23 10^6/uL (4.5-5.90); Red Cell Distribution Width 19.4 % (11.8-14.3); White Blood Cell 24.1 10^3/uL (4.4-10.8)
[2024-01-04 09:10] LABS: INR 1.91 (0.9-1.15); Partial Thromboplastin Time 34.2 SEC (24.5-34.5); Prothrombin Time 19.3 sec (9.3-11.8)
[2024-01-04 09:14] LABS: Alkaline Phosphatase 151 U/L (46-116); Calcium 9.8 mg/dL (8.7-10.4); Chloride 100 mmol/L (98-107); Potassium 3.9 mmol/L (3.5-5.1); Sodium 131 mmol/L (136-145)
[2024-01-04 09:15] LABS: Bilirubin, Total 32.5 mg/dL (0.2-1.0)
[2024-01-04 09:17] LABS: Alanine Aminotransferase 100 U/L (7-40); Albumin 3.1 g/dL (3.2-4.8); Anion Gap 8 (5-15); Aspartate Aminotransferase 169 U/L (13-40); BUN/Creatinine Ratio 19.2 (10.0-20.0); Blood Urea Nitrogen 32 mg/dL (9-23); Carbon Dioxide 23 mmol/L (20-31); Cholesterol 133 mg/dL (< 200); Glucose 331 mg/dL (74-106); HDL Cholesterol 7 mg/dL (40-59); LDL Cholesterol 38 mg/dL (< 100); Total Protein 7.7 g/dL (5.7-8.2); Triglycerides 252 mg/dL (< 150)
[2024-01-05] VITALS (7 sets, daily range): BP systolic 111–137; BP diastolic 57–85; PULSE 86–97; RESP 18–20; TEMP 97.5–98.8; O2SAT 95–99
[2024-01-05 06:49] LABS: Basophils # (auto) 0.1 10 ^3/uL (0-0.2); Basophils % (auto) 0.3 % (0.0-2.0); Mean Corpuscular Hemoglobin 39.7 pg (28.0-32.0); Monocytes # (auto) 2.5 10 ^3/uL (0-1.3); Neutrophils # (auto) 22.4 10 ^3/uL (1.6-8.6)
[2024-01-05 06:53] LABS: Eosinophils # (auto) 0 10 ^3/uL (0-0.8); Eosinophils % (auto) 0.1 % (0.0-7.0); Hematocrit 34.5 % (41.0-53.0); Hemoglobin 12.1 g/dL (13.5-17.5); Mean Corpuscular Hgb Conc. 35.1 g/dL (32.0-36.0); Mean Corpuscular Volume 113.1 fL (80.0-100.0); Monocytes % (auto) 9.4 % (0.0-12.0); Neutrophils % (auto) 86.2 % (37.0-80.0); Nucleated Red Blood Cells % 0.1 %; Platelet Count (auto) 260 10^3/uL (140-450); Red Blood Cells 3.05 10^6/uL (4.5-5.90)
[2024-01-05 06:59] LABS: Alkaline Phosphatase 151 U/L (46-116); Bilirubin, Total 29.2 mg/dL (0.2-1.0); Calcium 9.4 mg/dL (8.7-10.4); Chloride 102 mmol/L (98-107); Potassium 4.1 mmol/L (3.5-5.1); Sodium 130 mmol/L (136-145)
[2024-01-05 07:04] LABS: Alanine Aminotransferase 100 U/L (7-40); Albumin 2.9 g/dL (3.2-4.8); Anion Gap 9 (5-15); Aspartate Aminotransferase 148 U/L (13-40); BUN/Creatinine Ratio 23.8 (10.0-20.0); Blood Urea Nitrogen 39 mg/dL (9-23); Carbon Dioxide 19 mmol/L (20-31); Glucose 311 mg/dL (74-106)
[2024-01-05] MEDS ORDERED: DEXTROSE (50%) 50ML SYRG IV PRN (07:30)
[2024-01-05 08:17] LABS: Macrocytosis Marked; Platelet Estimate Adequate
[2024-01-05] MEDS: PIPERACILLIN-TAZOB 3.375GM 100 ML IV ONE (08:52)
[2024-01-05] MEDS: ACCU-CHEK COMFORT CURVE STRIP VI SCH (12:07)
[2024-01-05] MEDS: InsuLIN REG 1unit/0.01ml Soln (100units/ml) SC SCH (12:12)
[2024-01-05] MEDS: PIPERACILLIN-TAZOB 3.375GM 100 ML IV SCH (14:30)
[2024-01-06] VITALS (7 sets, daily range): BP systolic 100–132; BP diastolic 40–73; PULSE 55–96; RESP 16–18; TEMP 97.2–98.7; O2SAT 95–100
[2024-01-06 06:23] LABS: Basophils # (auto) 0 10 ^3/uL (0-0.2); Eosinophils # (auto) 0.1 10 ^3/uL (0-0.8); Eosinophils % (auto) 0.4 % (0.0-7.0)
[2024-01-06 06:26] LABS: Basophils % (auto) 0.2 % (0.0-2.0); Hematocrit 36.7 % (41.0-53.0); Lymphocytes # (auto) 1.1 10 ^3/uL (0.4-5.4); Lymphocytes % (auto) 4.3 % (10.0-50.0); Mean Corpuscular Hemoglobin 40.2 pg (28.0-32.0); Mean Corpuscular Hgb Conc. 35.3 g/dL (32.0-36.0); Mean Corpuscular Volume 113.8 fL (80.0-100.0); Monocytes % (auto) 8.1 % (0.0-12.0); Neutrophils # (auto) 21.3 10 ^3/uL (1.6-8.6); Platelet Count (auto) 198 10^3/uL (140-450); Red Blood Cells 3.23 10^6/uL (4.5-5.90); Red Cell Distribution Width 19.3 % (11.8-14.3); White Blood Cell 24.4 10^3/uL (4.4-10.8)
[2024-01-06 06:39] LABS: Alkaline Phosphatase 137 U/L (46-116); Calcium 9.3 mg/dL (8.7-10.4); Chloride 104 mmol/L (98-107); Potassium 4.2 mmol/L (3.5-5.1); Sodium 131 mmol/L (136-145)
[2024-01-06 06:41] LABS: Bilirubin, Total 31.4 mg/dL (0.2-1.0)
[2024-01-06 06:42] LABS: Alanine Aminotransferase 109 U/L (7-40); Albumin 3.1 g/dL (3.2-4.8); Anion Gap 9 (5-15); Aspartate Aminotransferase 160 U/L (13-40); BUN/Creatinine Ratio 22.6 (10.0-20.0); Blood Urea Nitrogen 33 mg/dL (9-23); Carbon Dioxide 18 mmol/L (20-31); Total Protein 7.1 g/dL (5.7-8.2)
[2024-01-06 06:49] LABS: Glucose 195 mg/dL (74-106)
[2024-01-06 09:20] LABS: Platelet Estimate Adequate
[2024-01-06 09:21] LABS: Macrocytosis Marked
[2024-01-07 05:00] VITALS: BP 122/65; PULSE 92; RESP 17; TEMP 97.8; O2SAT 100
[2024-01-07 06:26] LABS: Eosinophils # (auto) 0.1 10 ^3/uL (0-0.8); Red Blood Cells 3.11 10^6/uL (4.5-5.90)
[2024-01-07 06:29] LABS: Basophils # (auto) 0.2 10 ^3/uL (0-0.2); Basophils % (auto) 0.7 % (0.0-2.0); Eosinophils % (auto) 0.5 % (0.0-7.0); Hematocrit 35.4 % (41.0-53.0); Hemoglobin 12.3 g/dL (13.5-17.5); Lymphocytes # (auto) 0.9 10 ^3/uL (0.4-5.4); Lymphocytes % (auto) 4.1 % (10.0-50.0); Mean Corpuscular Hemoglobin 39.6 pg (28.0-32.0); Mean Corpuscular Hgb Conc. 34.9 g/dL (32.0-36.0); Mean Corpuscular Volume 113.6 fL (80.0-100.0); Monocytes # (auto) 1.8 10 ^3/uL (0-1.3); Monocytes % (auto) 7.8 % (0.0-12.0); Neutrophils # (auto) 19.7 10 ^3/uL (1.6-8.6); Neutrophils % (auto) 86.9 % (37.0-80.0); Platelet Count (auto) 192 10^3/uL (140-450); Red Cell Distribution Width 18.3 % (11.8-14.3); White Blood Cell 22.7 10^3/uL (4.4-10.8)
[2024-01-07 07:02] LABS: Alanine Aminotransferase 115 U/L (7-40); Albumin 2.9 g/dL (3.2-4.8); Alkaline Phosphatase 128 U/L (46-116); Anion Gap 7 (5-15); Aspartate Aminotransferase 160 U/L (13-40); BUN/Creatinine Ratio 24.6 (10.0-20.0); Bilirubin, Total 30.9 mg/dL (0.2-1.0); Blood Urea Nitrogen 33 mg/dL (9-23); Carbon Dioxide 21 mmol/L (20-31); Chloride 105 mmol/L (98-107); Glucose 202 mg/dL (74-106); Potassium 4.3 mmol/L (3.5-5.1); Sodium 133 mmol/L (136-145); Total Protein 6.8 g/dL (5.7-8.2)
[2024-01-07 08:20] VITALS: PULSE 93; RESP 18; O2SAT 95
[2024-01-07 09:00] VITALS: BP 123/65; PULSE 93; RESP 18; TEMP 97.6; O2SAT 95
[2024-01-07 12:30] VITALS: BP 123/65; PULSE 93; RESP 18; TEMP 97.6; O2SAT 95
[2024-01-07 13:00] VITALS: BP 117/62; PULSE 89; RESP 16; TEMP 97.7; O2SAT 96
[2024-01-07] MEDS ORDERED: LEVO750T40 PO (13:19)
[2024-01-07] MEDS ORDERED: URSO300C2 PO (13:19)
[2024-01-07] MEDS ORDERED: METR-344 PO (13:19)
[2024-01-07] MEDS ORDERED: LACT10SO3 PO (13:19)
[2024-01-07] MEDS ORDERED: METH4PAK PO (13:19)
== END 2024-01-07 17:00 | disposition home or self-care (01) | DRG 871 ==
LOC: ER 09:47 → TELE-EAST 17:23 → TELE 17:23 → TELE-EAST 21:03 → EAST 12-31 15:15
PROVIDERS: ADMIT Internal Medicine; ATTEND Internal Medicine
PROC: 5A09357 Assistance with Respiratory Ventilation, Less than 24 Consecutive Hours, Continuous Positive Airway Pressure (ICD-10-PCS; principal; 2023-12-29)
PROC: 5A09357 Assistance with Respiratory Ventilation, Less than 24 Consecutive Hours, Continuous Positive Airway Pressure (ICD-10-PCS; 2024-01-05)
DX: A41.9 Sepsis, unspecified organism (principal); G93.41 Metabolic encephalopathy; E87.20 Acidosis, unspecified; N17.9 Acute kidney failure, unspecified; I50.32 Chronic diastolic (congestive) heart failure; E87.1 Hypo-osmolality and hyponatremia; K83.09 Other cholangitis; Z68.43 Body mass index [BMI] 50.0-59.9, adult; K70.30 Alcoholic cirrhosis of liver without ascites; K76.0 Fatty (change of) liver, not elsewhere classified; K76.82 Hepatic encephalopathy; E66.01 Morbid (severe) obesity due to excess calories; F10.10 Alcohol abuse, uncomplicated; I11.0 Hypertensive heart disease with heart failure; E87.6 Hypokalemia; G47.33 Obstructive sleep apnea (adult) (pediatric); K70.10 Alcoholic hepatitis without ascites; E78.2 Mixed hyperlipidemia; E80.6 Other disorders of bilirubin metabolism; Y90.9 Presence of alcohol in blood, level not specified; Z86.718 Personal history of other venous thrombosis and embolism; Z86.711 Personal history of pulmonary embolism
CPT/HCPCS: 36415; 71045; 74177; 76705; 80053; 80061; 80074; 80320; 81001; 82140; 82247; 82248; 82728; 82962; 82977; 83036; 83605; 83615; 83690; 83735; 83880; 85007; 85025; 85027; 85379; 85610; 85730; 86704; 86706; 86708; 86803; 87040; 87340; 93005; 93306; 93970; 97110; 97116; 97163; 97530; 99291; 99292; G0378; J1815; J2003; J2543; J3480

== ENCOUNTER 2024-01-13 13:09 | Inpatient (IN) | payer BC ==
[~2024-01-13] VITALS: Ht 188 cm; Wt 181.0 kg
[~2024-01-13 13:09] MED LIST: LACT10SO3 PO; LEVO750T40 PO; METH4PAK PO; METR-344 PO; URSO300C2 PO
--- NOTE | 2024-01-13 13:33 | ED.PDOC ---
GI ASSESSMENT HPI Comments 38 year old male presents to the ED with chief complaint of jaundice and skin leaking fluid. Patient reports that he had been discharged from the hospital a week ago, however, since then he has been experiencing worsening jaundice and noting his skin leaks fluid around his abdomen when squeezed. Patient denies any N/V/D, abdominal pain, fever, chills, headache, SOB, or chest pain. Chief Complaint: Abdominal Pain Time Seen by MD: 13:28 Primary Care Provider: NONE Reviewed Notes: Nurses Notes, Medications, Allergies Allergies: Coded Allergies: NO KNOWN ALLERGIES (Unverified , 12/21/09) Home Meds Active Scripts Metronidazole (Flagyl) 500 Mg Tab, 1 TAB PO TID for 7 Days, #21 TAB Prov:ASHLIE MARTE [facility] 01/07/24 Levofloxacin Hemihydrate (LEVOFLOXACIN) 750 Mg Tab, 1 TAB PO DAILY, #7 TAB Prov:ASHLIE MARTE [facility] 01/07/24 Lactulose (Lactulose) 10 Gm/15 Ml Kamila, 30 ML PO TID for 30 Days, #1 BOT Prov:ASHLIE MARTE [facility] 01/07/24 Ursodiol (Ursodiol) 300 Mg Cap, 300 MG PO BID for 30 Days, #60 CAP [facility] 01/07/24 Methylprednisolone (Medrol Dosepak) 4 Mg Gerald, 4 MG PO UD, #21 TAB UAD Prov:ASHLIE MARTE [facility] 01/07/24 Information Source: Patient Mode of Arrival: Ambulatory Timing: Days Duration: Since onset Prehospital treatment: None Severity: Severe Recent: None Recent Hx of: Liver Disease Past Medical History PAST MEDICAL HISTORY: CHF, High Lipids, HTN, Liver Surgical History: Unknown Family History Family History: Reviewed,noncontributory to illness Social History Smoker: Non-Smoker Alcohol: Occasionally Drugs: Denies Drug Use Lives In: Home Constitutional: denies: chills, diaphoresis, fatigue, fever, malaise, sweats, weakness, others EENTM: denies: blurred vision, double vision, ear bleeding, ear discharge, ear drainage, ear pain, ear ringing, eye pain, eye redness, hearing loss, mouth pain, mouth swelling, nasal discharge, nose bleeding, nose congestion, nose pain, photophobia, tearing, throat pain, throat swelling, voice changes, others Respiratory: denies: cough, hemoptysis, orthopnea, SOB at rest, shortness of breath, SOB with excertion, stridor, wheezing, others Cardiovascular: denies: chest pain, dizzy spells, diaphoresis, Dyspnea on exertion, edema, irregular heart beat, left arm pain, lightheadedness, palpitations, PND, syncope, others Gastrointestinal: denies: abdomen distended, abdominal pain, blood streaked bowels, constipated, diarrhea, dysphagia, difficulty swallowing, hematemesis, melena, nausea, poor appetite, poor fluid intake, rectal bleeding, rectal pain, vomiting, others Genitourinary: denies: burning, dysuria, flank pain, frequency, hematuria, incontinence, penile discharge, penile sore, pain, testicle pain, testicle swelling, urgency, others Neurological: denies: dizziness, fainting, headache, left sided numbness, left sided weakness, numbness, paresthesia, pre-existing deficit, right sided numbne ss, right sided weakness, seizure, speech problems, tingling, tremors, weakness, others Musculoskeletal: denies: back pain, gout, joint pain, joint swelling, muscle pain, muscle stiffness, neck pain, others Integumetry: reports: change in color (jaundice), others (Skin leaking fluid); denies: bruises, change in hair/nails, dryness, laceration, lesions, lumps, rash, wounds Allergic/Immunocompromised: denies: Difficulty Healing, Frequent Infections, Hives, Itching, others Hematologic/Lymphatic: denies: anemia, blood clots, easy bleeding, easy bruising, swollen glands, others Endocrine: denies: excessive hunger, excessive sweating, excessive thirst, excessive urination, flushing, intolerance to cold, intolerance to heat, unexplained weight gain, unexplained weight loss, others Psychiatric: denies: anxiety, bipolar disorder, depression, hopeless, panic disorder, schizophrenia, sleepless, suicidal, others All Other Systems: Reviewed and Negative Physical Exam General Appearance: No Apparent Distress, Normal HEENT: Normal ENT Inspection, PERRL/EOMI, Scleral Icterus (L), Scleral Icterus (R) Neck: Full Range of Motion, Non-Tender, Normal, Normal Inspection Respiratory: Chest Non-Tender, Lungs Clear, No Accessory Muscle Use, No R espiratory Distress, Normal Breath Sounds Cardiovascular: No Edema, No JVD, No Murmur, No Gallop, Normal Peripheral Pulses, Regular Rate/Rhythm Breast Exam: Deferred Gastrointestinal: No Organomegaly, Non Tender, No Pulsatile Mass, Normal Bowel Sounds, Soft Genitalia: Deferred Pelvic: Deferred Rectal: Deferred Extremities: No calf tenderness, Normal capillary refill, Normal inspection, Normal range of motion, Non-tender, No pedal edema Musculoskeletal : Apperance: Normal Neurologic: Alert, sewer contractor II-XII nml as Tested, No Motor Deficits, Normal Affect, Normal Mood, No Sensory Deficits Cerebellar Function: Normal Reflexes: Normal Skin: Dry, Jaundice, Warm, Other (Skin noted to be leaking clear serous fluid from the abdominal wall) Lymphatic: No Adenopathy Was a procedure done? Was a procedure done?: No GI differential Dx Differential Diagnosis: Other (hepatorenal failure, renal failure, hypoalbuminemia, chf, fluid overload) X-Ray, Labs, Meds, VS Vital Signs Date Time Temp Pulse Resp B/P (MAP) Pulse Ox O2 Delivery O2 Flow Rate FiO2 01/13/24 13:36 97.9 109 20 134/59 (84) 100 Lab Test 01/13/24 13:47 Range/Units White Blood Count 29.2 H 4.4-10.8 10^3/uL Red Blood Count 3.27 L 4.5-5.90 10^6/uL Hemoglobin 12.9 L 13.5-17.5 g/dL Hematocrit 36.7 L 41.0-53.0 % Mean Corpuscular Volume 112.2 H 80.0-100.0 fL Mean Corpuscular Hemoglobin 39.6 H 28.0-32.0 pg Mean Corpuscular Hemoglobin Concent 35.3 32.0-36.0 g/dL Red Cell Distribution Width 17.2 H 11.8-14.3 % Platelet Count 187 140-450 10^3/uL Mean Platelet Volume 9.2 6.9-10.8 fL Neutrophils (%) (Auto) 37.0-80.0 % Lymphocytes (%) (Auto) 10.0-50.0 % Monocytes (%) (Auto) 0.0-12.0 % Basophils (%) (Auto) 0.0-2.0 % Neutrophils # (Auto) 1.6-8.6 10 ^3/uL Lymphocytes # (Auto) 0.4-5.4 10 ^3/uL Monocytes # (Auto) 0-1.3 10 ^3/uL Differential Total Cells Counted 100.0 100 Neutrophils % (Manual) 90 H 37.0-80.0 Band Neutrophils % (Manual) 0 Lymphocytes % (Manual) 3 L 10.0-50.0 Monocytes % (Manual) 6 0-12 Eosinophils % (Manual) 1 0-7 Basophils % (Manual) 0 0.0-2.0 Metamyelocytes % (manual) 0 Myelocytes % (Manual) 0 Promyelocytes % (Manual) 0 Blast Cells % (Manual) 0 Reactive Lymphocytes 0 Platelet Estimate Adequate Sodium Level 134 L 136-145 mmol/L Potassium Level 2.7 L 3.5-5.1 mmol/L Chloride Level 102 98-107 mmol/L Carbon Dioxide Level 18 L 20-31 mmol/L Anion Gap 14 5-15 Blood Urea Nitrogen 39 H 9-23 mg/dL Creatinine 1.80 H 0.700-1.30 mg/dL Glomerular Filtration Rate Calc 49 >90 mL/min BUN/Creatinine Ratio 21.7 H 10.0-20.0 Serum Glucose 215 H 74-106 mg/dL Calcium Level 8.7 8.7-10.4 mg/dL Total Bilirubin 29.6 H 0.2-1.0 mg/dL Aspartate Amino Transferase (AST) 193 H 13-40 U/L Alanine Aminotransferase (ALT) 183 H 7-40 U/L Alkaline Phosphatase 153 H 46-116 U/L Total Protein 7.5 5.7-8.2 g/dL Albumin 3.2 3.2-4.8 g/dL Time of 1ST Reevaluation: 14:28 Reevaluation 1ST: Unchanged Reevaluation 2ND: Unchanged Patient Education/Counseling: Diagnosis, Treatment Family Education/Counseling: No Family Present Additional Information pt has renal insufficiency and overall 3rd spacing, with discomfort. his liver failure is severe and the possibility of hepatorenal syndrome is real, especially with diuresis. he will need admission for cautious diuresis while watching his renal function Departure 1 Departure Time of Disposition: 15:21 Impression: Primary Impression: Liver cirrhosis, alcoholic Qualified Codes: K70.31 - Alcoholic cirrhosis of liver with ascites Additional Impressions: Renal failure Qualified Codes: N17.9 - Acute kidney failure, unspecified; N18.30 - Chronic kidney disease, stage 3 unspecified Edema Qualified Codes: R60.1 - Generalized edema Leukocytosis, unspecified Jaundice Disposition: ADMITTED INPATIENT Admit to: Med Surg Condition: Stable Critical Care Note Critical Care Time?: Yes Critical care comment: due to concerns for patient's condition with acute deterioration, causing life and limb threatening states, the care required my highest level of attention. i assessed the patient, ordered the proper tests, reassessed the response to treatments, communicated with medical personnel, formulated a plan of care and disposition. total time include at least 50% face-face interactions and does not include any procedures Stability Stability form required: No Heart Score Heart Score: Heart Score Response (Comments) Value History N/A 0 EKG N/A 0 Age N/A 0 Risk Factors N/A 0 Troponin N/A 0 Total 0 I personally scribed for KATELIN RHOADES MD ([email or web address]) on 01/13/24 at 13:33. Electronically submitted by Kevin Delgadillo ([email or web address]). KATELIN RHOADES MD Jan 13, 2024 13:33
[2024-01-13 14:09] LABS: Hemoglobin 12.9 g/dL (13.5-17.5); Mean Corpuscular Volume 112.2 fL (80.0-100.0)
[2024-01-13 14:11] LABS: Hematocrit 36.7 % (41.0-53.0); Mean Corpuscular Hemoglobin 39.6 pg (28.0-32.0); Mean Corpuscular Hgb Conc. 35.3 g/dL (32.0-36.0); Platelet Count (auto) 187 10^3/uL (140-450); Red Blood Cells 3.27 10^6/uL (4.5-5.90); Red Cell Distribution Width 17.2 % (11.8-14.3); White Blood Cell 29.2 10^3/uL (4.4-10.8)
[2024-01-13 14:14] LABS: Band Neutrophils % (manual) 0; Basophils % (manual) 0 (0.0-2.0); Blast Cells 0; Metamyelocytes % 0; Myelocytes % 0; Promyelocytes % 0; Reactive Lymphocytes 0
[2024-01-13 14:25] LABS: Alkaline Phosphatase 153 U/L (46-116); Bilirubin, Total 29.6 mg/dL (0.2-1.0); Calcium 8.7 mg/dL (8.7-10.4); Chloride 102 mmol/L (98-107); Potassium 2.7 mmol/L (3.5-5.1); Sodium 134 mmol/L (136-145)
[2024-01-13 14:36] LABS: Alanine Aminotransferase 183 U/L (7-40); Albumin 3.2 g/dL (3.2-4.8); Anion Gap 14 (5-15); Aspartate Aminotransferase 193 U/L (13-40); BUN/Creatinine Ratio 21.7 (10.0-20.0); Blood Urea Nitrogen 39 mg/dL (9-23); Carbon Dioxide 18 mmol/L (20-31); Glucose 215 mg/dL (74-106); Total Protein 7.5 g/dL (5.7-8.2)
[2024-01-13 14:51] LABS: Eosinophils % (manual) 1 (0-7); Lymphocytes % (manual) 3 (10.0-50.0); Monocytes % (manual) 6 (0-12)
[2024-01-13 14:52] LABS: Platelet Estimate Adequate
--- NOTE | 2024-01-13 16:12 | DVHHP2 ---
Admitting Diagnosis: Generalized weakness History of Present Illness 38 year old male presents to the ED with chief complaint of jaundice and skin leaking fluid. Patient reports that he had been discharged from the hospital a week ago, however, since then he has been experiencing worsening jaundice and noting his skin leaks fluid around his abdomen when squeezed. Patient denies any N/V/D, abdominal pain, fever, chills, headache, SOB, or chest pain. PAST MEDICAL HISTORY: CHF, High Lipids, HTN, Liver Surgical History: Unknown Family History: Reviewed,noncontributory to illness Social History Smoker: Non-Smoker Alcohol: Occasionally Drugs: Denies Drug Use Lives In: Home Patient Family History: Alcoholism G8 FATHER, No Family History of: Colon cancer Allergies: Coded Allergies: NO KNOWN ALLERGIES (Unverified , 12/21/09) Home Meds Active Scripts Metronidazole (Flagyl) 500 Mg Tab, 1 TAB PO TID for 7 Days, #21 TAB Prov:[facility] 01/07/24 Levofloxacin Hemihydrate (LEVOFLOXACIN) 750 Mg Tab, 1 TAB PO DAILY, #7 TAB Prov:[facility] 01/07/24 Lactulose (Lactulose) 10 Gm/15 Ml Kamila, 30 ML PO TID for 30 Days, #1 BOT Prov:[facility] 01/07/24 Ursodiol (Ursodiol) 300 Mg Cap, 300 MG PO BID for 30 Days, #60 CAP Prov:[facility] 01/07/24 Methylprednisolone (Medrol Dosepak) 4 Mg Gerald, 4 MG PO UD, #21 TAB UAD Prov:[facility] 01/07/24 Current Medications Current Medications Medications (Trade) Dose Ordered Sig/Phuong Route PRN Reason Start Time Stop Time Status Last Admin Furosemide (Lasix Injection) 40 mg BID IV 01/13/24 16:15 UNV Piperacillin Sod/ Tazobactam Sod 100 ml @ 100 mls/hr Q8H IV 01/13/24 16:15 UNV Thiamine HCl 100 mg DAILY PO 01/13/24 16:15 UNV Folic Acid 1 mg DAILY PO 01/13/24 16:15 UNV Vital Signs Vital Signs Date Time Temp Pulse Resp B/P (MAP) Pulse Ox O2 Delivery O2 Flow Rate FiO2 01/13/24 13:36 97.9 109 20 134/59 (84) 100 Physical Exam Generally-30 years old male, morbidly obese. No apparent distress HEENT-atraumatic normocephalic Heart-regular rate and rhythm Lungs decreased breath sounds bilaterally Abdomen soft, mild tender, nondistended. Oozing fluids Musculoskeletal-diffuse edema, no cyanosis Neuro-AO x3, no focal deficits Results Labs Test 01/13/24 13:47 Range/Units White Blood Count 29.2 H 4.4-10.8 10^3/uL Red Blood Count 3.27 L 4.5-5.90 10^6/uL Hemoglobin 12.9 L 13.5-17.5 g/dL Hematocrit 36.7 L 41.0-53.0 % Mean Corpuscular Volume 112.2 H 80.0-100.0 fL Mean Corpuscular Hemoglobin 39.6 H 28.0-32.0 pg Mean Corpuscular Hemoglobin Concent 35.3 32.0-36.0 g/dL Red Cell Distribution Width 17.2 H 11.8-14.3 % Platelet Count 187 140-450 10^3/uL Mean Platelet Volume 9.2 6.9-10.8 fL Neutrophils (%) (Auto) 37.0-80.0 % Lymphocytes (%) (Auto) 10.0-50.0 % Monocytes (%) (Auto) 0.0-12.0 % Basophils (%) (Auto) 0.0-2.0 % Neutrophils # (Auto) 1.6-8.6 10 ^3/uL Lymphocytes # (Auto) 0.4-5.4 10 ^3/uL Monocytes # (Auto) 0-1.3 10 ^3/uL Differential Total Cells Counted 100.0 100 Neutrophils % (Manual) 90 H 37.0-80.0 Band Neutrophils % (Manual) 0 Lymphocytes % (Manual) 3 L 10.0-50.0 Monocytes % (Manual) 6 0-12 Eosinophils % (Manual) 1 0-7 Basophils % (Manual) 0 0.0-2.0 Metamyelocytes % (manual) 0 Myelocytes % (Manual) 0 Promyelocytes % (Manual) 0 Blast Cells % (Manual) 0 Reactive Lymphocytes 0 Platelet Estimate Adequate Sodium Level 134 L 136-145 mmol/L Potassium Level 2.7 L 3.5-5.1 mmol/L Chloride Level 102 98-107 mmol/L Carbon Dioxide Level 18 L 20-31 mmol/L Anion Gap 14 5-15 Blood Urea Nitrogen 39 H 9-23 mg/dL Creatinine 1.80 H 0.700-1.30 mg/dL Glomerular Filtration Rate Calc 49 >90 mL/min BUN/Creatinine Ratio 21.7 H 10.0-20.0 Serum Glucose 215 H 74-106 mg/dL Calcium Level 8.7 8.7-10.4 mg/dL Total Bilirubin 29.6 H 0.2-1.0 mg/dL Aspartate Amino Transferase (AST) 193 H 13-40 U/L Alanine Aminotransferase (ALT) 183 H 7-40 U/L Alkaline Phosphatase 153 H 46-116 U/L Total Protein 7.5 5.7-8.2 g/dL Albumin 3.2 3.2-4.8 g/dL Primary Diagnosis Sepsis likely secondary to intra-abdominal infection Liver enzyme due to liver cirrhosis from chronic alcohol use Daniel on CKD Macrocytic anemia likely due to chronic alcohol use Plan Tachycardic, elevated WBC suspect sepsis due to intra-abdominal infection Start Zosyn for broad-spectrum antibiotic. Follow the blood culture Check lactic acid Trend WBC Check BNP for possible acute on chronic heart failure Check echo of the heart IV Lasix 40 mg b.i.d. Cardiology consult Daily weights Strict in and out Optimize potassium greater than four, magnesium greater than two while diuresing. Dr. Dunlap consult for acute kidney injuries on chronic kidney disease Ultrasound abdomen and kidney to evaluate for intrahepatic, extrahepatic biliary obstruction, acute kidney injury Thiamine folate supplement in view of chronic alcohol use Check INR. If supratherapeutic, give p.o. vitamin K Full code Cardiac diet PPI for GI prophylaxis Heparin for DVT prophylaxis Plan discussed with: Patient Problems List: (1) Sepsis (2) Liver cirrhosis, alcoholic (3) Morbid obesity (4) Cirrhosis Status: Acute Date of Service: Jan 13, 2024 Billing Provider: KOFI CONTRERAS MD Common Visit Codes: 42242-IOFSPMY INP/OBS CARE (HIGH) KOFI CONTRERAS MD Jan 13, 2024 16:12
[2024-01-13] MEDS ORDERED: ONDANSETRON HCL 4 MG/2 ML VIAL IV PRN (16:15)
[2024-01-13] MEDS ORDERED: DOCUSATE SOD 100 MG CAP PO PRN (16:15)
[2024-01-13] MEDS ORDERED: HYDROmorphone HCL 2 MG/ML VL/or syr IV PRN (16:15)
[2024-01-13 16:20] VITALS: O2SAT 95
[2024-01-13 17:04] LABS: INR 2.06 (0.9-1.15); Prothrombin Time 20.7 sec (9.3-11.8)
--- NOTE | 2024-01-13 17:16 | DVHINCON2 ---
Date of service: Jan 13, [address] Anglin Reason for Consultation Acute kidney injury History of Present Illness Patient is 38 y/o male with PMH of CHF, High Lipids, HTN, and Liver cirrhosis is admitted for worsening jaundice and continued leaking from abdomen after was discharged [facility] a week ago.. On admission patient was found to have elevated BUN and crearinine, nephrology is consulted for SHAYNA> Past Medical History PAST MEDICAL HISTORY: CHF, High Lipids, HTN, alcoholic Liver cirrhosis, morbid obesity Past Surgical History Paracentesis Allergies: Coded Allergies: NO KNOWN ALLERGIES (Unverified , 12/21/09) Home Meds Active Scripts Metronidazole (Flagyl) 500 Mg Tab, 1 TAB PO TID for 7 Days, #21 TAB Prov:[facility] 01/07/24 Levofloxacin Hemihydrate (LEVOFLOXACIN) 750 Mg Tab, 1 TAB PO DAILY, #7 TAB Prov:[facility] 01/07/24 Lactulose (Lactulose) 10 Gm/15 Ml Kamila, 30 ML PO TID for 30 Days, #1 BOT Prov:[facility] 01/07/24 Ursodiol (Ursodiol) 300 Mg Cap, 300 MG PO BID for 30 Days, #60 CAP Prov:[facility] 01/07/24 Methylprednisolone (Medrol Dosepak) 4 Mg Gerald, 4 MG PO UD, #21 TAB UAD Prov:[facility] 01/07/24 Current Medications Current Medications Medications (Trade) Dose Ordered Sig/Phuong Route PRN Reason Start Time Stop Time Status Last Admin Furosemide (Lasix Injection) 40 mg BID IV 01/13/24 16:15 01/13/24 17:38 Piperacillin Sod/ Tazobactam Sod 100 ml @ 100 mls/hr Q8H IV 01/13/24 16:15 01/14/24 00:16 DC 01/13/24 19:05 Thiamine HCl 100 mg DAILY PO 01/13/24 16:15 01/14/24 09:30 Folic Acid 1 mg DAILY PO 01/13/24 16:15 01/14/24 09:30 Sodium Chloride (Saline Lock Ns) 10 ml Q8HR IV 01/13/24 22:00 01/14/24 06:13 Docusate Sodium (Colace Capsule) 100 mg BIDPRN PRN PO FOR CONSTIPATION 01/13/24 16:15 Hydromorphone HCl (Dilaudid Injection) 0.5 mg Q4HP PRN IV SEVERE PAIN (7-10 PAIN SCALE) 01/13/24 16:15 Ondansetron HCl (Zofran) 4 mg Q4HP PRN IV NAUSEA / VOMITING 01/13/24 16:15 Patient Own Medication 30 ml TID PO 01/13/24 22:00 UNV Patient Own Medication 300 mg BID PO 01/13/24 22:00 UNV Lactulose 30 ml TID PO 01/13/24 22:00 Ursodiol (Actigall) 300 mg BID PO 01/13/24 22:00 01/14/24 09:30 Pantoprazole Sodium (Protonix) 40 mg DAILY IV 01/13/24 16:30 01/14/24 09:29 Piperacillin Sod/ Tazobactam Sod 100 ml @ 100 mls/hr Q8H IV 01/14/24 02:00 01/14/24 09:30 Midodrine (Proamatine Tablet) 10 mg BID PO 01/14/24 07:00 01/14/24 09:29 Prednisone 20 mg DAILY PO 01/15/24 10:00 Family History: Alcoholism G8 FATHER, No Family History of: Colon cancer Review of Systems All 12 item review of systems reviewed with the patient nonsignificant except what is mentioned in the history of present illness H&P Exam Vital Signs/I&O Vital Sign Date Time Temp Pulse Resp B/P (MAP) Pulse Ox O2 Delivery O2 Flow Rate FiO2 01/14/24 11:43 98.3 93 18 89/44 (59) 100 98.3 01/13/24 20:00 Room Air* 0 21 Intake and Output 01/13/24 01/14/24 19:00 07:00 Intake Total 550 ml Output Total 1200 ml Balance -650 ml Intake Oral 100 ml IV Total 450 ml Output Urine Total 1200 ml Physical Exam Morbidly obese male appeared in no acute distress Icteric sclera Lungs clear to auscultation bilaterally Cardiac exam regular rate and rhythm Abdomen distended positive ascites normal Extremities 3+ edema Neuro positive asterixis Labs/Diagnostic Data Labs/Diagnostic Data Laboratory Tests Test 01/14/24 06:08 01/13/24 19:51 01/13/24 16:53 01/13/24 13:47 Range/Units White Blood Count 29.3 H 29.2 H 4.4-10.8 10^3/uL Red Blood Count 2.71 L 3.27 L 4.5-5.90 10^6/uL Hemoglobin 10.5 #L 12.9 L 13.5-17.5 g/dL Hematocrit 30.4 #L 36.7 L 41.0-53.0 % Mean Corpuscular Volume 112.1 H 112.2 H 80.0-100.0 fL Mean Corpuscular Hemoglobin 38.6 H 39.6 H 28.0-32.0 pg Mean Corpuscular Hemoglobin Concent 34.5 35.3 32.0-36.0 g/dL Red Cell Distribution Width 17.0 H 17.2 H 11.8-14.3 % Platelet Count 120 L 187 140-450 10^3/uL Mean Platelet Volume 9.1 9.2 6.9-10.8 fL Neutrophils (%) (Auto) 92.4 H 37.0-80.0 % Lymphocytes (%) (Auto) 1.8 L 10.0-50.0 % Monocytes (%) (Auto) 3.9 0.0-12.0 % Eosinophils (%) (Auto) 0.8 0.0-7.0 % Basophils (%) (Auto) 1.1 0.0-2.0 % Neutrophils # (Auto) 27.1 H 1.6-8.6 10 ^3/uL Lymphocytes # (Auto) 0.5 0.4-5.4 10 ^3/uL Monocytes # (Auto) 1.2 0-1.3 10 ^3/uL Eosinophils # (Auto) 0.2 0-0.8 10 ^3/uL Basophils # (Auto) 0.3 H 0-0.2 10 ^3/uL Nucleated Red Blood Cells 0.0 % Sodium Level 136 134 L 136-145 mmol/L Potassium Level 3.3 L 2.7 L 3.5-5.1 mmol/L Chloride Level 106 102 98-107 mmol/L Carbon Dioxide Level 16 L 18 L 20-31 mmol/L Anion Gap 14 14 5-15 Blood Urea Nitrogen 47 H 39 H 9-23 mg/dL Creatinine 2.40 H 1.80 H 0.700-1.30 mg/dL Glomerular Filtration Rate Calc 35 49 >90 mL/min BUN/Creatinine Ratio 19.6 21.7 H 10.0-20.0 Serum Glucose 124 H 215 H 74-106 mg/dL Calcium Level 7.6 L 8.7 8.7-10.4 mg/dL Magnesium Level 2.2 1.6-2.6 mg/dL Total Bilirubin 21.4 H 29.6 H 0.2-1.0 mg/dL Aspartate Amino Transferase (AST) 216 H 193 H 13-40 U/L Alanine Aminotransferase (ALT) 140 H 183 H 7-40 U/L Alkaline Phosphatase 101 153 H 46-116 U/L Total Protein 5.3 L 7.5 5.7-8.2 g/dL Albumin 2.4 L 3.2 3.2-4.8 g/dL Lactic Acid Level 2.7 *H 3.7 *H 0.4-2.0 mmol/L Ammonia < 10 L 11-32 umol/L Differential Total Cells Counted 100.0 100 Neutrophils % (Manual) 90 H 37.0-80.0 Band Neutrophils % (Manual) 0 Lymphocytes % (Manual) 3 L 10.0-50.0 Monocytes % (Manual) 6 0-12 Eosinophils % (Manual) 1 0-7 Basophils % (Manual) 0 0.0-2.0 Metamyelocytes % (manual) 0 Myelocytes % (Manual) 0 Promyelocytes % (Manual) 0 Blast Cells % (Manual) 0 Reactive Lymphocytes 0 Platelet Estimate Adequate Prothrombin Time 20.7 H 9.3-11.8 sec Prothrombin Time INR 2.06 H 0.9-1.15 B-Type Natriuretic Peptide 225.46 0-100 pg/mL Microbiology Date/Time Source Procedure Growth Status 01/13/24 22:52 Nose MRSA Screen - Final Complete Assessment SHAYNA superimposed on CKD secondary to hemodynamic mediated Hepatorenal syndrome Decompensated liver cirrhosis Jaundice r/o cholangitis Hypokalemia Hyperglycemia DM type II REC: Closely monitor fluids and lytes Avoid nephrotoxins Strict I&O's check UA, urine lytes and protein check kidney US KCl replacement i agree with diuresis Albumin 25% IVPB Cardiology consult Surgery consult Will continue to follow Patient seen and examined by myself. I discussed my plan of care with the patient and primary nurse at the bedside I would like to thank Dr. Anglin for the consult, will follow up Plan discussed with: Patient ALEM ANDERS MD Jan 13, 2024 17:16
[2024-01-13] MEDS: FOLIC ACID 1 MG TAB PO SCH (17:34)
[2024-01-13] MEDS: THIAMINE HCL 100 MG TAB PO SCH (17:35)
[2024-01-13] MEDS: POTASSIUM EFFERVESENT TAB 25 MEQ PO ONE (17:35)
[2024-01-13] MEDS: PANTOPRAZOLE 40 MG/10 ML VIAL INJ IV SCH (17:35)
[2024-01-13] MEDS: FUROSEMIDE 40 MG/4 ML VIAL IV SCH (17:38)
[2024-01-13 17:45] LABS: Lactic Acid w/Reflex 3.7 mmol/L (0.4-2.0)
[2024-01-13 18:35] VITALS: BP 109/66; PULSE 98; RESP 22; TEMP 98.1; O2SAT 100
[2024-01-13 18:45] VITALS: BP 109/64; PULSE 98; RESP 22; TEMP 98.1; O2SAT 100
[2024-01-13] MEDS: PIPERACILLIN-TAZOB 3.375GM 100 ML IV SCH (19:05)
[2024-01-13 20:00] VITALS: PULSE 97; RESP 22; O2SAT 99
--- NOTE | 2024-01-13 20:14 | DVH ---
INDICATION: elevated lft and SHAYNA on CKD TECHNIQUE: Multiple real-time sonographic images were obtained of the abdomen COMPARISON: None FINDINGS: The liver demonstrates heterogeneous echotexture without focal mass lesions. The liver nisreen sures 23 cm. The portal vein demonstrates hepatofugal flow. There is no intrahepatic or extrahepatic ductal dilatation. The common duct is not visualized on thi s study. No evidence gallbladder stones or sludge. Negative sonographic higgins's sign. Small amount of pericho lecystic free fluid. Gallbladder wall thickening measuring 1.5 cm. The right kidney measures 13 cm. The left kidney measures 10 cm. The bilateral kidneys are normal in contour, size, and shape. The echogenicity is normal. There is no hydronephrosis. The pancreas is not well visualized due to overlying bowel gas. The spleen measures 15 cm. No focal lesions. Left upper quadrant ascites. IMPRESSION: Hepatomegaly and cirrhosis. Reversed flow within the portal vein suggestive of portal hypertension. Mildly distended gallbladder demonstrating diffuse wall thickening and free fluid in the right upper quadrant. These findings are most likely secondary to portal hypertension. No evidence of gallstones . Left upper quadrant ascites. Splenomegaly, likely sequelae of portal hypertension.
[2024-01-13 21:00] VITALS: BP 111/68; PULSE 97; RESP 22; TEMP 97.9; O2SAT 99
[2024-01-13] MEDS: SODIUM CHLOR 0.9% PF (SALINE LOCK) 10ML VIAL/SYR IV SCH (22:00)
[2024-01-13] MEDS ORDERED: PATIENTS OWN MEDICATION (Lactulose 30 ML) PO SCH (22:00)
[2024-01-13] MEDS: LACTULOSE 20Gm/30ML SOLN PO SCH (22:00)
[2024-01-13] MEDS ORDERED: URSODIOL 300 MG PO SCH (22:00)
[2024-01-13] MEDS: URSODIOL 300 MG CAP PO SCH (22:10)
[2024-01-14] VITALS (7 sets, daily range): BP systolic 84–111; BP diastolic 39–52; PULSE 55–116; RESP 17–22; TEMP 97.5–98.3; O2SAT 88–100
[2024-01-14] MEDS: PIPERACILLIN-TAZOB 3.375GM 100 ML IV SCH (01:47)
[2024-01-14] MEDS: ALBUMIN 5% 250 ML IV ONE ×2 (03:26→15:20)
[2024-01-14 06:51] LABS: Lymphocytes # (auto) 0.5 10 ^3/uL (0.4-5.4); Lymphocytes % (auto) 1.8 % (10.0-50.0)
[2024-01-14] MEDS: MIDODRINE HCL 10 MG TAB PO SCH ×2 (06:53→18:06)
[2024-01-14 06:55] LABS: Basophils # (auto) 0.3 10 ^3/uL (0-0.2); Basophils % (auto) 1.1 % (0.0-2.0); Eosinophils # (auto) 0.2 10 ^3/uL (0-0.8); Eosinophils % (auto) 0.8 % (0.0-7.0); Hematocrit 30.4 % (41.0-53.0); Hemoglobin 10.5 g/dL (13.5-17.5); Mean Corpuscular Hemoglobin 38.6 pg (28.0-32.0); Mean Corpuscular Hgb Conc. 34.5 g/dL (32.0-36.0); Mean Corpuscular Volume 112.1 fL (80.0-100.0); Monocytes # (auto) 1.2 10 ^3/uL (0-1.3); Monocytes % (auto) 3.9 % (0.0-12.0); Neutrophils # (auto) 27.1 10 ^3/uL (1.6-8.6); Neutrophils % (auto) 92.4 % (37.0-80.0); Platelet Count (auto) 120 10^3/uL (140-450); Red Blood Cells 2.71 10^6/uL (4.5-5.90); White Blood Cell 29.3 10^3/uL (4.4-10.8)
[2024-01-14 11:18] LABS: Albumin 2.4 g/dL (3.2-4.8); Alkaline Phosphatase 101 U/L (46-116); Anion Gap 14 (5-15); Bilirubin, Total 21.4 mg/dL (0.2-1.0); Calcium 7.6 mg/dL (8.7-10.4); Carbon Dioxide 16 mmol/L (20-31); Chloride 106 mmol/L (98-107); Glucose 124 mg/dL (74-106); Magnesium 2.2 mg/dL (1.6-2.6); Potassium 3.3 mmol/L (3.5-5.1); Sodium 136 mmol/L (136-145)
[2024-01-14 11:21] LABS: Alanine Aminotransferase 140 U/L (7-40); Aspartate Aminotransferase 216 U/L (13-40); BUN/Creatinine Ratio 19.6 (10.0-20.0); Blood Urea Nitrogen 47 mg/dL (9-23); Total Protein 5.3 g/dL (5.7-8.2)
--- NOTE | 2024-01-14 12:57 | DVHINCON2 ---
GI Consult Consult Note GI consult note Date of Consultation: 01/14/2024 Chief Complaint: Liver cirrhosis and jaundice Referring Physician: Dr. Anglin H&P: 38-year-old male admitted with complains of jaundice and skin leaking fluid Patient discharged from the hospital a week ago No abdominal pain. No nausea or vomiting. No melena or red blood in stool Patient has history of heavy alcohol, sober for one month now Past Medical History: CHF, High Lipids, HTN, Liver Past Surgical History: Social History: Smoker: Non-Smoker Alcohol: Sober Drugs: Denies Drug Use Lives In: Home Family History: Noncontributory Review of Systems: Constitutional: no fever, chill, weight loss HEENT: + scleral icterus Heart: no chest pain, no chest pressure Lung: no cough, no dyspnea with exertion Abdomen: see HPI Derm: + jaundice Physical exam: General: NAD, AAOX3 HEENT: + scleral icterus Chest: lung gamboa clear to auscultation Heart: RRR, no murmur Abdomen: no tenderness to palpation, +BS Skin: + jaundice Labs:Laboratory Tests Test 01/13/24 16:53 01/13/24 13:47 Range/Units White Blood Count 29.2 H 4.4-10.8 10^3/uL Red Blood Count 3.27 L 4.5-5.90 10^6/uL Hemoglobin 12.9 L 13.5-17.5 g/dL Hematocrit 36.7 L 41.0-53.0 % Mean Corpuscular Volume 112.2 H 80.0-100.0 fL Mean Corpuscular Hemoglobin 39.6 H 28.0-32.0 pg Mean Corpuscular Hemoglobin Concent 35.3 32.0-36.0 g/dL Red Cell Distribution Width 17.2 H 11.8-14.3 % Platelet Count 187 140-450 10^3/uL Mean Platelet Volume 9.2 6.9-10.8 fL Neutrophils (%) (Auto) 37.0-80.0 % Lymphocytes (%) (Auto) 10.0-50.0 % Monocytes (%) (Auto) 0.0-12.0 % Basophils (%) (Auto) 0.0-2.0 % Neutrophils # (Auto) 1.6-8.6 10 ^3/uL Lymphocytes # (Auto) 0.4-5.4 10 ^3/uL Monocytes # (Auto) 0-1.3 10 ^3/uL Differential Total Cells Counted 100.0 100 Neutrophils % (Manual) 90 H 37.0-80.0 Band Neutrophils % (Manual) 0 Lymphocytes % (Manual) 3 L 10.0-50.0 Monocytes % (Manual) 6 0-12 Eosinophils % (Manual) 1 0-7 Basophils % (Manual) 0 0.0-2.0 Metamyelocytes % (manual) 0 Myelocytes % (Manual) 0 Promyelocytes % (Manual) 0 Blast Cells % (Manual) 0 Reactive Lymphocytes 0 Platelet Estimate Adequate Prothrombin Time 20.7 H 9.3-11.8 sec Prothrombin Time INR 2.06 H 0.9-1.15 Sodium Level 134 L 136-145 mmol/L Potassium Level 2.7 L 3.5-5.1 mmol/L Chloride Level 102 98-107 mmol/L Carbon Dioxide Level 18 L 20-31 mmol/L Anion Gap 14 5-15 Blood Urea Nitrogen 39 H 9-23 mg/dL Creatinine 1.80 H 0.700-1.30 mg/dL Glomerular Filtration Rate Calc 49 >90 mL/min BUN/Creatinine Ratio 21.7 H 10.0-20.0 Serum Glucose 215 H 74-106 mg/dL Calcium Level 8.7 8.7-10.4 mg/dL Total Bilirubin 29.6 H 0.2-1.0 mg/dL Aspartate Amino Transferase (AST) 193 H 13-40 U/L Alanine Aminotransferase (ALT) 183 H 7-40 U/L Alkaline Phosphatase 153 H 46-116 U/L B-Type Natriuretic Peptide 225.46 0-100 pg/mL Total Protein 7.5 5.7-8.2 g/dL Albumin 3.2 3.2-4.8 g/dL Imaging: Abdominal ultrasound IMPRESSION: Hepatomegaly and cirrhosis. Reversed flow within the portal vein suggestive of portal hypertension. Mildly distended gallbladder demonstrating diffuse wall thickening and free fluid in the right upper quadrant. These findings are most likely secondary to portal hypertension. No evidence of gallstones. Left upper quadrant ascites. Splenomegaly, likely sequelae of portal hypertension. Assessment: Liver cirrhosis History heavy alcohol Ascites Jayden CHF Plan: -discussed with Dr. Farrell Albumin IV every day Continue ursodiol Prednisone 20 mg every day Monitor labs Clear liquid diet DC alcohol discussed extensively We will continue to monitor the patient Discussed plan with patient, brother at bedside and RN Thank you for this consult Date of Service: Jan 14, 2024 Billing Provider: DARIO FARRIS Common Visit Codes: CONSULT ONLY Consultation Codes: [id number] CONSULT <45MIN DARIO FARRIS Jan 14, 2024 12:57
--- NOTE | 2024-01-14 14:35 | DVHPN2 ---
Progress Note Date Seen: Jan 14, 2024 Medical Necessity Reason Pt with a Central, PICC or Fol: No Subjective Patient reports: No new complaints Other Systems: Patient seen and examined by myself today in follow-up Objective vital signs Vital Sign Date Time Temp Pulse Resp B/P (MAP) Pulse Ox O2 Delivery O2 Flow Rate FiO2 01/14/24 11:43 98.3 93 18 89/44 (59) 100 98.3 01/13/24 20:00 Room Air* 0 21 Total Intake and Output 01/13/24 01/13/24 01/14/24 15:00 23:00 07:00 Intake Total 100 ml 450 ml Output Total 1200 ml Balance 100 ml -750 ml medications Current Medications Medications Dose Ordered Sig/Phuong Route Start Time Stop Time Status Last Admin Dose Admin Furosemide 40 mg BID IV 01/13/24 16:15 01/13/24 17:38 40 MG Thiamine HCl 100 mg DAILY PO 01/13/24 16:15 01/14/24 09:30 100 MG Folic Acid 1 mg DAILY PO 01/13/24 16:15 01/14/24 09:30 1 MG Sodium Chloride 10 ml Q8HR IV 01/13/24 22:00 01/14/24 06:13 10 ML Docusate Sodium 100 mg BIDPRN PRN PO 01/13/24 16:15 Hydromorphone HCl 0.5 mg Q4HP PRN IV 01/13/24 16:15 Ondansetron HCl 4 mg Q4HP PRN IV 01/13/24 16:15 Patient Own Medication 30 ml TID PO 01/13/24 22:00 UNV Patient Own Medication 300 mg BID PO 01/13/24 22:00 UNV Lactulose 30 ml TID PO 01/13/24 22:00 Ursodiol 300 mg BID PO 01/13/24 22:00 01/14/24 09:30 300 MG Pantoprazole Sodium 40 mg DAILY IV 01/13/24 16:30 01/14/24 09:29 40 MG Piperacillin Sod/ Tazobactam Sod 100 ml @ 100 mls/hr Q8H IV 01/14/24 02:00 01/14/24 09:30 100 MLS/HR Midodrine 10 mg BID PO 01/14/24 07:00 01/14/24 09:29 10 MG Prednisone 20 mg DAILY PO 01/15/24 10:00 laboratory and microbiology Laboratory Tests 01/14/24 06:08 Test 01/14/24 06:08 Range/Units Serum Glucose 124 H 74-106 mg/dL Microbiology Date/Time Source Procedure Growth Status 01/13/24 22:52 Nose MRSA Screen - Final Complete Problem List/Assessment/Plan Problem List/Assessment/Plan SHAYNA 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 t.i.d. Octreotide 100 mcg subQ q.8 hours GI consult Will continue to follow Plan discussed with: Patient Dietary Evaluation Review Comments: Advance diet to 2 gNa CCHO-75, Renal Specific-80g protein, 3K, low phos diet when medically feasible. Monitor PO intake to meet 75% of his needs Expected Outcomes/Goals: Gradual weight loss, improved nutrition related lab values ALEM ANDERS MD Jan 14, 2024 14:35
--- NOTE | 2024-01-14 14:38 | DVH ---
INDICATION: DIAGNOSTIC PARA TECHNIQUE: Multiple real-time sonographic images were obtained of the right upper quadrant. COMPARISON: US GALLBLADDER on DOS: 12/30/23 FINDINGS /impression: Trace abdominal ascites. HS:Y
[2024-01-14] MEDS ORDERED: HYDROmorphone HCL 2 MG/ML VL/or syr IV PRN (15:15)
--- NOTE | 2024-01-14 15:30 | DVHPN2 ---
Subjective 38-year-old male recently discharged AH failure, cirrhosis, admitted for abdominal pain. Patient is seen by me during Consult Radiology for, patient does not seem to have good pocket. High MELD and mattery discriminant factor, started on prednisone. Elevated bilirubin. Watch for hepatic encephalopathy. Consult GI, nephrology. Consult palliative Total critical care time spent on this patient more than 30 minutes including evaluation, chart review, formulating plan and communication with team, excluding any procedures Reviewed: Care Plan, H&P, Labs, Medications, Previous Orders, Radiology Changes from previous H/P or p: No Changes Objective Vitals Vital Signs Date Time Temp Pulse Resp B/P (MAP) Pulse Ox O2 Delivery O2 Flow Rate FiO2 01/14/24 11:43 98.3 93 18 89/44 (59) 100 98.3 01/13/24 20:00 Room Air* 0 21 Intake/Output Intake and Output 01/14/24 07:00 Intake Total 550 ml Output Total 1200 ml Balance -650 ml Intake Oral 100 ml IV Total 450 ml Output Urine Total 1200 ml Exam Alert, oriented x3 Jaundice Morbidly obese PERRLA No JVD Clear breath sounds S1-S2 regular rate and rhythm , distant Abdomen soft nontender, no hepatomegaly Equal strength bilaterally on upper and lower extremities Weeping edema Ulcer Medications Current Medications Medications Dose Ordered Sig/Phuong Route Start Time Stop Time Status Last Admin Dose Admin Furosemide 40 mg BID IV 01/13/24 16:15 01/13/24 17:38 40 MG Thiamine HCl 100 mg DAILY PO 01/13/24 16:15 01/14/24 09:30 100 MG Folic Acid 1 mg DAILY PO 01/13/24 16:15 01/14/24 09:30 1 MG Sodium Chloride 10 ml Q8HR IV 01/13/24 22:00 01/14/24 14:51 10 ML Docusate Sodium 100 mg BIDPRN PRN PO 01/13/24 16:15 Ondansetron HCl 4 mg Q4HP PRN IV 01/13/24 16:15 Patient Own Medication 30 ml TID PO 01/13/24 22:00 UNV Patient Own Medication 300 mg BID PO 01/13/24 22:00 UNV Lactulose 30 ml TID PO 01/13/24 22:00 Ursodiol 300 mg BID PO 01/13/24 22:00 01/14/24 09:30 300 MG Pantoprazole Sodium 40 mg DAILY IV 01/13/24 16:30 01/14/24 09:29 40 MG Piperacillin Sod/ Tazobactam Sod 100 ml @ 100 mls/hr Q8H IV 01/14/24 02:00 01/14/24 09:30 100 MLS/HR Prednisone 20 mg DAILY PO 01/15/24 10:00 Octreotide Acetate 100 mcg TID SUBCUT 01/14/24 22:00 UNV Midodrine 10 mg TID@0600,1200,1800 PO 01/14/24 18:00 UNV Hydromorphone HCl 0.25 mg Q4HP PRN IV 01/14/24 15:15 UNV Laboratory Results Laboratory Tests 01/14/24 06:08 Chemistry Test 01/14/24 06:08 Albumin 2.4 g/dL (3.2-4.8) L Calcium Level 7.6 mg/dL (8.7-10.4) L Magnesium Level 2.2 mg/dL (1.6-2.6) Total Protein 5.3 g/dL (5.7-8.2) L LFT Test 01/14/24 06:08 Alanine Aminotransferase (ALT) 140 U/L (7-40) H Alkaline Phosphatase 101 U/L (46-116) Aspartate Amino Transferase (AST) 216 U/L (13-40) H Total Bilirubin 21.4 mg/dL (0.2-1.0) H Microbiology Microbiology Date/Time Source Procedure Growth Status 01/13/24 22:52 Nose MRSA Screen - Final Complete Labs and/or images reviewed: Labs reviewed by me, Image(s) reviewed by me Assessment/Plan Assessment/Plan Jaundice acute liver failure? cirrhosis Alcohol use Macrocytic anemia Leukocytosis Thrombocytopenia Lactic acidosis HAGMA Low albumin Severely elevated bilirubin Transaminitis Elevated INR abdominal pain, cannot r/o SBP SHAYNA likely hepatorenal consult palliative maddrey's 72.9 MELD 34prednisone 20mg BID midodrine 10mg TID ursodiol albumin GI consult appreciated thiamine and folate consult radiology to tap, unable to find pocket cover with zosyn for sepsis and presumed SBP strict I&O daily weight keep K 4 Ph 3 Mg 2 advance diet as tolerated DVT ppx hold for thrombocytopenia condition critical prognosis poor Plan discussed with: Patient My Orders Orders - BRYANT SIMPSON MD Procedure Category Date Status Time Lactate LAB 10/31/24 Logged Dehydrogenase, Fluid 12:37 Protein, Body Fluid LAB 01/14/24 Logged 12:37 Body Fluid Culture W/ ALEKSANDRA 01/14/24 Logged GS 12:37 Glucose Body Fluid LAB 01/14/24 Logged 12:37 Body Fluid Ph LAB 01/14/24 Logged 12:37 Gram Stain ALEKSANDRA 01/14/24 Logged 12:37 Body Fluids, Diff. LAB 01/14/24 Logged Cell Count 12:37 * Radiologist Consult CONS 01/14/24 Transmitted 12:39 Cleanse Wound With HAO 01/14/24 In Process Wound Clean 10:06 Abdomen Limited US 01/14/24 Resulted 13:36 Hydromorphone PHA 01/14/24 Logged Injection (Dilaudid 15:15 Lactic Acid W/ Reflex LAB 01/15/24 Verified Order 04:00 Phosphorus LAB 01/15/24 Verified 04:00 Magnesium LAB 01/15/24 Verified 04:00 Comprehensive LAB 01/15/24 Verified Metabolic Panel 04:00 Complete Blood Count LAB 01/15/24 Verified 04:00 Date of Service: Jan 14, 2024 Billing Provider: BRYANT SIMPSON MD Common Visit Codes: [id number] INP/OBS CARE(HIGH), [id number] CARE 30-74 MIN BRYANT SIMPSON MD Jan 14, 2024 15:30
[2024-01-14] MEDS: OCTREOTIDE ACETATE 100 MCG/ML VL SUBCUT SCH (22:00)
[2024-01-14] MEDS: predniSONE 20 MG TAB PO SCH (22:39)
[2024-01-15 05:00] VITALS: BP 103/53; PULSE 89; RESP 18; TEMP 98; O2SAT 98
[2024-01-15 08:41] VITALS: BP 95/47; PULSE 72; RESP 17; TEMP 98.2; O2SAT 99
[2024-01-15 09:04] LABS: Basophils # (auto) 0 10 ^3/uL (0-0.2); Eosinophils # (auto) 0.1 10 ^3/uL (0-0.8); Hemoglobin 10.8 g/dL (13.5-17.5); Lymphocytes % (auto) 4.2 % (10.0-50.0); Neutrophils # (auto) 14.2 10 ^3/uL (1.6-8.6)
[2024-01-15 09:06] LABS: Eosinophils % (auto) 0.4 % (0.0-7.0); Hematocrit 31.3 % (41.0-53.0); Lymphocytes # (auto) 0.7 10 ^3/uL (0.4-5.4); Mean Corpuscular Hemoglobin 38.3 pg (28.0-32.0); Mean Corpuscular Hgb Conc. 34.4 g/dL (32.0-36.0); Mean Corpuscular Volume 111.4 fL (80.0-100.0); Monocytes # (auto) 0.8 10 ^3/uL (0-1.3); Monocytes % (auto) 5.1 % (0.0-12.0); Neutrophils % (auto) 90.3 % (37.0-80.0); Platelet Count (auto) 99 10^3/uL (140-450); Red Blood Cells 2.81 10^6/uL (4.5-5.90); Red Cell Distribution Width 17.1 % (11.8-14.3); White Blood Cell 15.8 10^3/uL (4.4-10.8)
[2024-01-15 09:14] LABS: Albumin 2.4 g/dL (3.2-4.8); Alkaline Phosphatase 93 U/L (46-116); Anion Gap 13 (5-15); Bilirubin, Total 20.1 mg/dL (0.2-1.0); Calcium 7.7 mg/dL (8.7-10.4); Carbon Dioxide 17 mmol/L (20-31); Chloride 106 mmol/L (98-107); Glucose 194 mg/dL (74-106); Magnesium 2.3 mg/dL (1.6-2.6); Phosphorus 4.4 mg/dL (2.4-5.1); Potassium 2.9 mmol/L (3.5-5.1); Sodium 136 mmol/L (136-145)
[2024-01-15 09:23] LABS: Alanine Aminotransferase 144 U/L (7-40); Aspartate Aminotransferase 174 U/L (13-40); BUN/Creatinine Ratio 25.7 (10.0-20.0); Total Protein 5.6 g/dL (5.7-8.2)
[2024-01-15 09:24] LABS: Blood Urea Nitrogen 58 mg/dL (9-23)
[2024-01-15] MEDS ORDERED: predniSONE 20 MG TAB PO SCH (10:00)
[2024-01-15 13:00] VITALS: BP 98/48; PULSE 60; RESP 20; TEMP 97.9; O2SAT 99
--- NOTE | 2024-01-15 15:24 | DVHPN2 ---
Progress Note Date Seen: Jan 15, 2024 Medical Necessity Reason Pt with a Central, PICC or Fol: No Subjective Review of Systems Pt resting in bed, in no acute distress Patient reports: No new complaints Objective vital signs Vital Sign Date Time Temp Pulse Resp B/P (MAP) Pulse Ox O2 Delivery O2 Flow Rate FiO2 01/15/24 13:00 97.9 60 20 98/48 (65) 99 97.9 01/14/24 20:00 Room Air* 0 21 Total Intake and Output 01/14/24 01/14/24 01/15/24 15:00 23:00 07:00 Intake Total 100 ml 970 ml 275 ml Output Total 1500 ml Balance 100 ml -530 ml 275 ml medications Current Medications Medications Dose Ordered Sig/Phuong Route Start Time Stop Time Status Last Admin Dose Admin Furosemide 40 mg BID IV 01/13/24 16:15 01/13/24 17:38 40 MG Thiamine HCl 100 mg DAILY PO 01/13/24 16:15 01/15/24 08:58 100 MG Folic Acid 1 mg DAILY PO 01/13/24 16:15 01/15/24 08:58 1 MG Sodium Chloride 10 ml Q8HR IV 01/13/24 22:00 01/15/24 14:00 10 ML Docusate Sodium 100 mg BIDPRN PRN PO 01/13/24 16:15 Ondansetron HCl 4 mg Q4HP PRN IV 01/13/24 16:15 Patient Own Medication 30 ml TID PO 01/13/24 22:00 UNV Patient Own Medication 300 mg BID PO 01/13/24 22:00 UNV Lactulose 30 ml TID PO 01/13/24 22:00 01/15/24 13:59 30 ML Ursodiol 300 mg BID PO 01/13/24 22:00 01/15/24 08:58 300 MG Pantoprazole Sodium 40 mg DAILY IV 01/13/24 16:30 01/15/24 08:58 40 MG Piperacillin Sod/ Tazobactam Sod 100 ml @ 100 mls/hr Q8H IV 01/14/24 02:00 01/15/24 08:57 100 MLS/HR Octreotide Acetate 100 mcg TID SUBCUT 01/14/24 22:00 01/15/24 14:00 100 MCG Midodrine 10 mg TID@0600,1200,1800 PO 01/14/24 18:00 01/15/24 11:56 10 MG Hydromorphone HCl 0.25 mg Q4HP PRN IV 01/14/24 15:15 Prednisone 20 mg BID PO 01/14/24 22:00 01/15/24 08:58 20 MG Examination General: Appears stated age, obese, in no acute distress Pulm: Clear to auscultation bilaterally CVS: RRR, normal S1 and S2 Ext: + BLE edema Neuro: Alert and oriented x4 laboratory and microbiology Laboratory Tests 01/15/24 08:29 Test 01/15/24 08:29 Range/Units Serum Glucose 194 H 74-106 mg/dL Microbiology Date/Time Source Procedure Growth Status 01/13/24 22:52 Nose MRSA Screen - Final Complete 01/13/24 16:53 Blood Blood Culture - Preliminary NO GROWTH AFTER 24 HOURS OF INCUBATION. 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 The left kidney measures 10 cm. The bilateral kidneys are normal in contour, size, and shape. The echogenicity is normal. There is no hydronephrosis. REC: Serial chemistry panels Continue to closely monitor fluids and electrolytes Avoid nephrotoxic medications/IV contrast if able Strict I&O's KCl replacement as needed Agree with diuresis Agree with albumin Will continue to follow Plan discussed with: Patient Dietary Evaluation Review Comments: Advance diet to 2 gNa CCHO-75, Renal Specific-80g protein, 3K, low phos diet when medically feasible. Monitor PO intake to meet 75% of his needs Expected Outcomes/Goals: Gradual weight loss, improved nutrition related lab values YOCASTA ENGLAND Jan 15, 2024 15:24
[2024-01-15] MEDS: ALBUMIN 25% 50 ML IV SCH (15:44)
[2024-01-15 17:39] VITALS: BP 102/57; PULSE 83; RESP 21; TEMP 97.4; O2SAT 99
[2024-01-15] MEDS: POTASSIUM CHL 20 Meq TABLET PO ONE (18:28)
--- NOTE | 2024-01-15 19:26 | DVHPN2 ---
Subjective 38-year-old male recently discharged AH failure, cirrhosis, admitted for abdominal pain. Patient is seen by me during No pocket to tap. Slight improvement. Seen by GI today. Continue with steroids and antibiotics. More than 30 minutes spent in advanced care planning, including discussing code status, medical decision maker, goals of care and disposition planning. Reviewed: Care Plan, H&P, Labs, Medications, Previous Orders, Radiology Changes from previous H/P or p: No Changes Objective Vitals Vital Signs Date Time Temp Pulse Resp B/P (MAP) Pulse Ox O2 Delivery O2 Flow Rate FiO2 01/15/24 17:39 97.4 83 21 102/57 (72) 99 97.4 01/15/24 08:00 Room Air* 0 21 Intake/Output Intake and Output 01/15/24 07:00 Intake Total 1345 ml Output Total 1500 ml Balance -155 ml Intake Oral 920 ml IV Total 425 ml Output Urine Total 1500 ml # Bowel Movements 1 Exam Alert, oriented x3 Jaundice Morbidly obese PERRLA No JVD Clear breath sounds S1-S2 regular rate and rhythm , distant Abdomen soft nontender, no hepatomegaly Equal strength bilaterally on upper and lower extremities Weeping edema Ulcer Medications Current Medications Medications Dose Ordered Sig/Phuong Route Start Time Stop Time Status Last Admin Dose Admin Furosemide 40 mg BID IV 01/13/24 16:15 01/13/24 17:38 40 MG Thiamine HCl 100 mg DAILY PO 01/13/24 16:15 01/15/24 08:58 100 MG Folic Acid 1 mg DAILY PO 01/13/24 16:15 01/15/24 08:58 1 MG Sodium Chloride 10 ml Q8HR IV 01/13/24 22:00 01/15/24 14:00 10 ML Docusate Sodium 100 mg BIDPRN PRN PO 01/13/24 16:15 Ondansetron HCl 4 mg Q4HP PRN IV 01/13/24 16:15 Patient Own Medication 30 ml TID PO 01/13/24 22:00 UNV Patient Own Medication 300 mg BID PO 01/13/24 22:00 UNV Lactulose 30 ml TID PO 01/13/24 22:00 01/15/24 13:59 30 ML Ursodiol 300 mg BID PO 01/13/24 22:00 01/15/24 08:58 300 MG Pantoprazole Sodium 40 mg DAILY IV 01/13/24 16:30 01/15/24 08:58 40 MG Piperacillin Sod/ Tazobactam Sod 100 ml @ 100 mls/hr Q8H IV 01/14/24 02:00 01/15/24 18:28 100 MLS/HR Octreotide Acetate 100 mcg TID SUBCUT 01/14/24 22:00 01/15/24 14:00 100 MCG Midodrine 10 mg TID@0600,1200,1800 PO 01/14/24 18:00 01/15/24 18:28 10 MG Hydromorphone HCl 0.25 mg Q4HP PRN IV 01/14/24 15:15 Prednisone 20 mg BID PO 01/14/24 22:00 01/15/24 08:58 20 MG Albumin Human 50 ml @ 100 mls/hr Q8H IV 01/15/24 15:15 01/16/24 07:44 01/15/24 15:44 100 MLS/HR Laboratory Results Laboratory Tests 01/15/24 08:29 Chemistry Test 01/15/24 08:29 Albumin 2.4 g/dL (3.2-4.8) L Calcium Level 7.7 mg/dL (8.7-10.4) L Magnesium Level 2.3 mg/dL (1.6-2.6) Phosphorus Level 4.4 mg/dL (2.4-5.1) Total Protein 5.6 g/dL (5.7-8.2) L LFT Test 01/15/24 08:29 Alanine Aminotransferase (ALT) 144 U/L (7-40) H Alkaline Phosphatase 93 U/L (46-116) Aspartate Amino Transferase (AST) 174 U/L (13-40) H Total Bilirubin 20.1 mg/dL (0.2-1.0) H Microbiology Microbiology Date/Time Source Procedure Growth Status 01/13/24 22:52 Nose MRSA Screen - Final Complete 01/13/24 16:53 Blood Blood Culture - Preliminary NO GROWTH AFTER 48 HOURS OF INCUBATION. Resulted Assessment/Plan Assessment/Plan Jaundice acute liver failure? cirrhosis Alcohol use Macrocytic anemia Leukocytosis Thrombocytopenia Lactic acidosis HAGMA Low albumin Severely elevated bilirubin Transaminitis Elevated INR abdominal pain, cannot r/o SBP SHAYNA likely hepatorenal consult palliative maddrey's 72.9 MELD 34prednisone 20mg BID midodrine 10mg TID ursodiol albumin GI consult appreciated thiamine and folate consult radiology to tap, unable to find pocket cover with zosyn for sepsis and presumed SBP strict I&O daily weight keep K 4 Ph 3 Mg 2 advance diet as tolerated DVT ppx hold for thrombocytopenia condition critical prognosis poor Medical decision maker Treva Daley [phone] Code status full code Goals of care curative vest baster mechanical and ventilator support: No Plan discussed with: Patient My Orders Orders - BRYANT SIMPSON MD Procedure Category Date Status Time Regular Diet DIET 01/15/24 Transmitted Lunch Date of Service: Jan 15, 2024 Billing Provider: BRYANT SIMPSON MD Common Visit Codes: [id number] INP/OBS CARE(HIGH) BRYANT SIMPSON MD Jan 15, 2024 19:26
[2024-01-15 21:00] VITALS: BP 98/58; PULSE 87; RESP 20; TEMP 97.4; O2SAT 95
--- NOTE | 2024-01-15 21:16 | DVHPN2 ---
Progress Note Date Seen: Jan 15, 2024 Resident Creating Document: BRIGHT HARPER RESIDENT Medical Necessity Reason Pt with a Central, PICC or Fol: No Medical Necessity Reason This is a 38-year-old male with a history of liver cirrhosis secondary to alcohol abuse who was recently discharged from the hospital about a week ago returned with jaundice and fluid leaking from his skin. No abdominal pain. No nausea or vomiting. No melena or red blood in stool Patient has history of heavy alcohol, sober for 3 month now. Subjective Review of Systems Constitutional: No fever no chills no feeling of malaise HEENT: No headache, no ear pain, no ear discharges, ICTERUS. the triachiatic lashes, no nasal discharge no throat pain Cardiovascular: No chest pain, no palpitation, no orthopnea, PND, pedal edema Respiratory: Cough, no sputum production, shortness of breath, hemoptysis, GI: No abdominal pain, nausea, no vomiting, no diarrhea, no hematemesis, no hematochezia, : No frequency, no urgency, no hematuria, Endocrine endocrine no abdominal weight gain or weight loss, no feeling of hot flashes, Heme/onco: Easy bruising, no bleeding disorders, epistasis, Psych: No evidence of depression, rahul, suicidal ideation Derm: + jaundice Objective vital signs Vital Sign Date Time Temp Pulse Resp B/P (MAP) Pulse Ox O2 Delivery O2 Flow Rate FiO2 01/15/24 17:39 97.4 83 21 102/57 (72) 99 97.4 01/15/24 08:00 Room Air* 0 21 Total Intake and Output 01/14/24 01/14/24 01/15/24 15:00 23:00 07:00 Intake Total 100 ml 970 ml 275 ml Output Total 1500 ml Balance 100 ml -530 ml 275 ml medications Current Medications Medications Dose Ordered Sig/Phuong Route Start Time Stop Time Status Last Admin Dose Admin Furosemide 40 mg BID IV 01/13/24 16:15 01/13/24 17:38 40 MG Thiamine HCl 100 mg DAILY PO 01/13/24 16:15 01/15/24 08:58 100 MG Folic Acid 1 mg DAILY PO 01/13/24 16:15 01/15/24 08:58 1 MG Sodium Chloride 10 ml Q8HR IV 01/13/24 22:00 01/15/24 14:00 10 ML Docusate Sodium 100 mg BIDPRN PRN PO 01/13/24 16:15 Ondansetron HCl 4 mg Q4HP PRN IV 01/13/24 16:15 Patient Own Medication 30 ml TID PO 01/13/24 22:00 UNV Patient Own Medication 300 mg BID PO 01/13/24 22:00 UNV Lactulose 30 ml TID PO 01/13/24 22:00 01/15/24 13:59 30 ML Ursodiol 300 mg BID PO 01/13/24 22:00 01/15/24 08:58 300 MG Pantoprazole Sodium 40 mg DAILY IV 01/13/24 16:30 01/15/24 08:58 40 MG Piperacillin Sod/ Tazobactam Sod 100 ml @ 100 mls/hr Q8H IV 01/14/24 02:00 01/15/24 18:28 100 MLS/HR Octreotide Acetate 100 mcg TID SUBCUT 01/14/24 22:00 01/15/24 14:00 100 MCG Midodrine 10 mg TID@0600,1200,1800 PO 01/14/24 18:00 01/15/24 18:28 10 MG Hydromorphone HCl 0.25 mg Q4HP PRN IV 01/14/24 15:15 Prednisone 20 mg BID PO 01/14/24 22:00 01/15/24 08:58 20 MG Albumin Human 50 ml @ 100 mls/hr Q8H IV 01/15/24 15:15 01/16/24 07:44 01/15/24 15:44 100 MLS/HR Examination General examination- morbidly obese male jaundiced lying not in any respiratory distress HEENT- icterus, no acute nasal discharge Cardiovascular- S1-S2 audible, rate and rhythm regular, no murmur Respiratory- CTAB, no wheeze or rhonchi Gastrointestinal-excoriation on abdomen, fluid leaking through the skin on the left lower abdominal side, no abdominal tenderness, lower abdominal tenderness, bowel sound+. Musculoskeletal-no acute joint swelling or tenderness or redness Lower extremity- dry callus on the bottom of the feet, edema bilateral, swelling, this coloration from possibly venous stasis Neurological- cranial nerves intact, no acute dysarthria or dysphagia Psychiatry- denies depression or SI or HI Skin- : + jaundice laboratory and microbiology Laboratory Tests 01/15/24 08:29 Test 01/15/24 08:29 Range/Units Serum Glucose 194 H 74-106 mg/dL Microbiology Date/Time Source Procedure Growth Status 01/13/24 22:52 Nose MRSA Screen - Final Complete 01/13/24 16:53 Blood Blood Culture - Preliminary NO GROWTH AFTER 48 HOURS OF INCUBATION. Resulted Problem List/Assessment/Plan Problem List/Assessment/Plan Ascites with the ascitic fluid leaking through his abdomen Liver cirrhosis Thrombocytopenia Elevated liver enzymes/transaminitis Lactic acidosis hypoalbuminemia History heavy alcohol Acute kidney injury CHF Plan: Albumin IV every day Continue ursodiol Continue Prednisone 20 mg every day Monitor labs Clear liquid diet DC alcohol discussed extensively We will continue to monitor the patient Goal of care discussed for more than 18 minute: Full code Case and plan discussed with Dr. Farrell Plan discussed with: Patient Dietary Evaluation Review Comments: Advance diet to 2 gNa CCHO-75, Renal Specific-80g protein, 3K, low phos diet when medically feasible. Monitor PO intake to meet 75% of his needs Expected Outcomes/Goals: Gradual weight loss, improved nutrition related lab values BRIGHT HARPER RESIDENT Jan 15, 2024 21:16
[2024-01-16 01:00] VITALS: BP 125/57; PULSE 74; RESP 20; TEMP 97.5; O2SAT 99
[2024-01-16 05:00] VITALS: BP 108/63; PULSE 80; RESP 20; TEMP 97.5; O2SAT 97
[2024-01-16 05:52] LABS: Monocytes # (auto) 0.8 10 ^3/uL (0-1.3); Nucleated Red Blood Cells % 0.1 %
[2024-01-16 05:56] LABS: Basophils # (auto) 0 10 ^3/uL (0-0.2); Basophils % (auto) 0.4 % (0.0-2.0); Eosinophils # (auto) 0 10 ^3/uL (0-0.8); Eosinophils % (auto) 0.2 % (0.0-7.0); Hemoglobin 12.1 g/dL (13.5-17.5); Lymphocytes # (auto) 0.5 10 ^3/uL (0.4-5.4); Lymphocytes % (auto) 3.7 % (10.0-50.0); Mean Corpuscular Hgb Conc. 34.5 g/dL (32.0-36.0); Mean Corpuscular Volume 112.9 fL (80.0-100.0); Monocytes % (auto) 5.6 % (0.0-12.0); Neutrophils # (auto) 12.2 10 ^3/uL (1.6-8.6); Neutrophils % (auto) 90.1 % (37.0-80.0); Platelet Count (auto) 112 10^3/uL (140-450); Red Cell Distribution Width 16.6 % (11.8-14.3); White Blood Cell 13.6 10^3/uL (4.4-10.8)
[2024-01-16 06:10] LABS: Albumin 2.8 g/dL (3.2-4.8); Alkaline Phosphatase 107 U/L (46-116); Anion Gap 12 (5-15); Bilirubin, Total 22.9 mg/dL (0.2-1.0); Carbon Dioxide 19 mmol/L (20-31); Chloride 105 mmol/L (98-107); Magnesium 2.5 mg/dL (1.6-2.6); Potassium 3.4 mmol/L (3.5-5.1); Sodium 136 mmol/L (136-145)
[2024-01-16 06:12] LABS: Alanine Aminotransferase 152 U/L (7-40); Aspartate Aminotransferase 131 U/L (13-40); BUN/Creatinine Ratio 23.6 (10.0-20.0); Blood Urea Nitrogen 56 mg/dL (9-23); Total Protein 6.4 g/dL (5.7-8.2)
[2024-01-16 06:13] LABS: Glucose 295 mg/dL (74-106)
[2024-01-16 08:09] LABS: Macrocytosis Marked; Platelet Estimate Decreased
[2024-01-16 08:10] VITALS: PULSE 80; RESP 17; O2SAT 100
[2024-01-16 13:00] VITALS: BP 111/61; PULSE 82; RESP 17; TEMP 98.1; O2SAT 100
--- NOTE | 2024-01-16 14:27 | DVHPN2 ---
Progress Note Date Seen: Jan 16, 2024 Medical Necessity Reason Pt with a Central, PICC or Fol: No Subjective Review of Systems Pt resting in bed, no acute distress noted. Patient reports: No new complaints, Feels better Objective vital signs Vital Sign Date Time Temp Pulse Resp B/P (MAP) Pulse Ox O2 Delivery O2 Flow Rate FiO2 01/16/24 08:10 80 17 100 Room Air* 0 21 01/16/24 05:00 97.5 108/63 (78) 97.5 Total Intake and Output 01/15/24 01/15/24 01/16/24 15:00 23:00 07:00 Intake Total 100 ml 750 ml 400 ml Output Total 1600 ml 1000 ml Balance 100 ml -850 ml -600 ml medications Current Medications Medications Dose Ordered Sig/Phuong Route Start Time Stop Time Status Last Admin Dose Admin Furosemide 40 mg BID IV 01/13/24 16:15 01/13/24 17:38 40 MG Thiamine HCl 100 mg DAILY PO 01/13/24 16:15 01/16/24 10:46 100 MG Folic Acid 1 mg DAILY PO 01/13/24 16:15 01/16/24 10:47 1 MG Sodium Chloride 10 ml Q8HR IV 01/13/24 22:00 01/16/24 05:24 10 ML Docusate Sodium 100 mg BIDPRN PRN PO 01/13/24 16:15 Ondansetron HCl 4 mg Q4HP PRN IV 01/13/24 16:15 Patient Own Medication 30 ml TID PO 01/13/24 22:00 UNV Patient Own Medication 300 mg BID PO 01/13/24 22:00 UNV Lactulose 30 ml TID PO 01/13/24 22:00 01/15/24 13:59 30 ML Ursodiol 300 mg BID PO 01/13/24 22:00 01/16/24 10:00 300 MG Pantoprazole Sodium 40 mg DAILY IV 01/13/24 16:30 01/16/24 10:46 40 MG Piperacillin Sod/ Tazobactam Sod 100 ml @ 100 mls/hr Q8H IV 01/14/24 02:00 01/16/24 10:45 100 MLS/HR Octreotide Acetate 100 mcg TID SUBCUT 01/14/24 22:00 01/16/24 05:22 100 MCG Midodrine 10 mg TID@0600,1200,1800 PO 01/14/24 18:00 01/16/24 05:21 10 MG Hydromorphone HCl 0.25 mg Q4HP PRN IV 01/14/24 15:15 Prednisone 20 mg BID PO 01/14/24 22:00 01/16/24 10:46 20 MG Examination General: Appears stated age, obese, in no acute distress Pulm: Clear to auscultation bilaterally CVS: RRR, normal S1 and S2 Ext: + BLE edema Neuro: Alert and oriented x4 laboratory and microbiology Laboratory Tests 01/16/24 05:17 Test 01/16/24 05:17 Range/Units Serum Glucose 295 #H 74-106 mg/dL Microbiology Date/Time Source Procedure Growth Status 01/13/24 22:52 Nose MRSA Screen - Final Complete 01/13/24 16:53 Blood Blood Culture - Preliminary NO GROWTH AFTER 48 HOURS OF INCUBATION. Resulted Labs and/or images reviewed: Labs reviewed by me Problem List/Assessment/Plan Problem List/Assessment/Plan SHAYNA superimposed on CKD secondary to hemodynamic mediated- noted slight worsening GFR Hepatorenal syndrome Decompensated liver cirrhosis Jaundice r/o cholangitis Hypokalemia-ongoing Hyperglycemia DM type II Abd U/S Impression: The right kidney measures 13 cm. The left kidney measures 10 cm. The bilateral kidneys are normal in contour, size, and shape. The echogenicity is normal. There is no hydronephrosis. REC: Serial chemistry panels Urine Na, urine creat- to calculate FENa Continue to closely monitor fluids and electrolytes Avoid nephrotoxic medications/IV contrast if able Strict I&O's KCl replacement as needed Will continue to follow Discussed case with Dr. Joseph Dunlap Plan discussed with: Patient, Other (Dr. Joseph Dunlap) Dietary Evaluation Review Comments: Advance diet to 2 gNa CCHO-75, Renal Specific-80g protein, 3K, low phos diet when medically feasible. Monitor PO intake to meet 75% of his needs Expected Outcomes/Goals: Gradual weight loss, improved nutrition related lab values YOCASTA ENGLAND Jan 16, 2024 14:27
[2024-01-16 16:56] VITALS: BP_SYST 67; PULSE 82; RESP 15; TEMP 97.7; O2SAT 97
--- NOTE | 2024-01-16 16:59 | DVHPN2 ---
Subjective 38-year-old male recently discharged AH failure, cirrhosis, admitted for abdominal pain. Patient is seen by me during day 01/14 No pocket to tap. Slight improvement. Seen by GI today. Continue with steroids and antibiotics. 01/15- he is tolerating p.o., good urine output, A/O x4 patient has been denying his Lasix due to low blood pressure, is also denying monitoring believing it will cause his blood pressure to drop. We will change his Lasix to q.6 H and reinforce importance of treatment during the hospitalization Reviewed: Care Plan, H&P, Labs, Medications, Previous Orders, Radiology Changes from previous H/P or p: No Changes General: Per HPI Objective Vitals Vital Signs Date Time Temp Pulse Resp B/P (MAP) Pulse Ox O2 Delivery O2 Flow Rate FiO2 01/16/24 13:00 98.1 82 17 111/61 (78) 100 98.1 01/16/24 08:10 Room Air* 0 21 Intake/Output Intake and Output 01/16/24 07:00 Intake Total 1250 ml Output Total 2600 ml Balance -1350 ml Intake Oral 850 ml IV Total 400 ml Output Urine Total 2600 ml # Voids 4 Exam Alert, oriented x3 Jaundice Morbidly obese BMI 52 PERRLA No JVD Clear breath sounds S1-S2 regular rate and rhythm , distant Abdomen soft nontender, no hepatomegaly. Abdominal folds without erythema or skin breakdown. Equal strength bilaterally on upper and lower extremities Weeping edema bill weeping fluid is jaundiced as well. Ulcer Medications Current Medications Medications Dose Ordered Sig/Phuong Route Start Time Stop Time Status Last Admin Dose Admin Thiamine HCl 100 mg DAILY PO 01/13/24 16:15 01/16/24 10:46 100 MG Folic Acid 1 mg DAILY PO 01/13/24 16:15 01/16/24 10:47 1 MG Sodium Chloride 10 ml Q8HR IV 01/13/24 22:00 01/16/24 14:00 10 ML Docusate Sodium 100 mg BIDPRN PRN PO 01/13/24 16:15 Ondansetron HCl 4 mg Q4HP PRN IV 01/13/24 16:15 Patient Own Medication 30 ml TID PO 01/13/24 22:00 UNV Patient Own Medication 300 mg BID PO 01/13/24 22:00 UNV Lactulose 30 ml TID PO 01/13/24 22:00 01/15/24 13:59 30 ML Ursodiol 300 mg BID PO 01/13/24 22:00 01/16/24 10:00 300 MG Pantoprazole Sodium 40 mg DAILY IV 01/13/24 16:30 01/16/24 10:46 40 MG Piperacillin Sod/ Tazobactam Sod 100 ml @ 100 mls/hr Q8H IV 01/14/24 02:00 01/16/24 10:45 100 MLS/HR Octreotide Acetate 100 mcg TID SUBCUT 01/14/24 22:00 01/16/24 16:09 100 MCG Midodrine 10 mg TID@0600,1200,1800 PO 01/14/24 18:00 01/16/24 05:21 10 MG Hydromorphone HCl 0.25 mg Q4HP PRN IV 01/14/24 15:15 Prednisone 20 mg BID PO 01/14/24 22:00 01/16/24 10:46 20 MG Furosemide 20 mg QID IV 01/16/24 18:00 UNV Laboratory Results Laboratory Tests 01/16/24 05:17 Chemistry Test 01/16/24 05:17 Albumin 2.8 g/dL (3.2-4.8) L Calcium Level 8.0 mg/dL (8.7-10.4) L Magnesium Level 2.5 mg/dL (1.6-2.6) Total Protein 6.4 g/dL (5.7-8.2) LFT Test 01/16/24 05:17 Alanine Aminotransferase (ALT) 152 U/L (7-40) H Alkaline Phosphatase 107 U/L (46-116) Aspartate Amino Transferase (AST) 131 U/L (13-40) H Total Bilirubin 22.9 mg/dL (0.2-1.0) H Microbiology Microbiology Date/Time Source Procedure Growth Status 01/13/24 22:52 Nose MRSA Screen - Final Complete 01/13/24 16:53 Blood Blood Culture - Preliminary NO GROWTH AFTER 48 HOURS OF INCUBATION. Resulted Labs and/or images reviewed: Labs reviewed by me, Image(s) reviewed by me Assessment/Plan Assessment/Plan 01/15- he is tolerating p.o., good urine output, A/O x4 patient has been denying his Lasix due to low blood pressure, is also denying monitoring believing it will cause his blood pressure to drop. We will change his Lasix to q.6 H and reinforce importance of treatment during the hospitalization Jaundice acute liver failure? cirrhosis Alcohol use Macrocytic anemia Leukocytosis Thrombocytopenia Lactic acidosis HAGMA Low albumin Severely elevated bilirubin Transaminitis Elevated INR abdominal pain, cannot r/o SBP SHAYNA likely hepatorenal consult palliative maddrey's 72.9 MELD 34prednisone 20mg BID midodrine 10mg TID ursodiol albumin GI consult appreciated thiamine and folate consult radiology to tap, unable to find pocket cover with zosyn for sepsis and presumed SBP strict I&O daily weight will start aldactone to help diuresis. cont albumin. 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
[2024-01-16] MEDS: FUROSEMIDE 40 MG/4 ML VIAL IV SCH (18:02)
[2024-01-16] MEDS: POTASSIUM CHL 20 Meq TABLET PO ONE (18:02)
[2024-01-16] MEDS: SPIRONOLACTONE 25 MG TAB PO ONE (18:03)
--- NOTE | 2024-01-16 20:01 | DVHPN2 ---
Progress Note Date Seen: Jan 16, 2024 Resident Creating Document: BRIGHT HARPER RESIDENT Medical Necessity Reason Pt with a Central, PICC or Fol: No Medical Necessity Reason This is a 38-year-old male with a history of liver cirrhosis secondary to alcohol abuse who was recently discharged from the hospital about a week ago returned with jaundice and fluid leaking from his skin. Subjective Review of Systems Constitutional: Denies fever no chills no feeling of malaise, morbidly obese HEENT: Denies headache, no ear pain, no ear discharges, ICTERUS Cardiovascular: Denies chest pain, palpitation, orthopnea, PND, pedal edema Respiratory: Denies cough, sputum production, shortness of breath, hemoptysis, GI: abdominal pain left side, discharge on the left side, Denies nausea, vomiting, diarrhea, hematemesis, hematochezia, : Denies frequency, urgency, hematuria, Heme/onc: Denies easy bruising, bleeding disorders, epistaxis, Psych: No evidence of depression, rahul, suicidal ideation Derm: + jaundice Objective vital signs Vital Sign Date Time Temp Pulse Resp B/P (MAP) Pulse Ox O2 Delivery O2 Flow Rate FiO2 01/16/24 18:02 123/69 01/16/24 16:56 97.7 82 15 97 97.7 01/16/24 08:10 Room Air* 0 21 Total Intake and Output 01/15/24 01/15/24 01/16/24 15:00 23:00 07:00 Intake Total 100 ml 750 ml 400 ml Output Total 1600 ml 1000 ml Balance 100 ml -850 ml -600 ml medications Current Medications Medications Dose Ordered Sig/Phuong Route Start Time Stop Time Status Last Admin Dose Admin Thiamine HCl 100 mg DAILY PO 01/13/24 16:15 01/16/24 10:46 100 MG Folic Acid 1 mg DAILY PO 01/13/24 16:15 01/16/24 10:47 1 MG Sodium Chloride 10 ml Q8HR IV 01/13/24 22:00 01/16/24 14:00 10 ML Docusate Sodium 100 mg BIDPRN PRN PO 01/13/24 16:15 Ondansetron HCl 4 mg Q4HP PRN IV 01/13/24 16:15 Patient Own Medication 30 ml TID PO 01/13/24 22:00 UNV Patient Own Medication 300 mg BID PO 01/13/24 22:00 UNV Lactulose 30 ml TID PO 01/13/24 22:00 01/15/24 13:59 30 ML Ursodiol 300 mg BID PO 01/13/24 22:00 01/16/24 10:00 300 MG Pantoprazole Sodium 40 mg DAILY IV 01/13/24 16:30 01/16/24 10:46 40 MG Piperacillin Sod/ Tazobactam Sod 100 ml @ 100 mls/hr Q8H IV 01/14/24 02:00 01/16/24 18:00 100 MLS/HR Octreotide Acetate 100 mcg TID SUBCUT 01/14/24 22:00 01/16/24 16:09 100 MCG Midodrine 10 mg TID@0600,1200,1800 PO 01/14/24 18:00 01/16/24 18:03 10 MG Hydromorphone HCl 0.25 mg Q4HP PRN IV 01/14/24 15:15 Prednisone 20 mg BID PO 01/14/24 22:00 01/16/24 10:46 20 MG Furosemide 20 mg QID IV 01/16/24 18:00 01/16/24 18:02 20 MG Spironolactone 25 mg DAILY PO 01/17/24 10:00 Examination General examination- morbidly obese male jaundiced lying not in any respiratory distress HEENT- icterus, no acute nasal discharge Cardiovascular- S1-S2 audible, rate and rhythm regular, no murmur Respiratory- CTAB, no wheeze or rhonchi Gastrointestinal- excoriation on abdomen, fluid leaking through the skin on the left lower abdominal side, no abdominal tenderness, lower abdominal tenderness, bowel sound+. Musculoskeletal-no acute joint swelling or tenderness or redness Lower extremity- dry callus on the bottom of the feet, edema bilateral, swelling, this coloration from possibly venous stasis Neurological- cranial nerves intact, no acute dysarthria or dysphagia Psychiatry- denies depression or SI or HI Skin- : + jaundice laboratory and microbiology Laboratory Tests 01/16/24 05:17 Test 01/16/24 05:17 Range/Units Serum Glucose 295 #H 74-106 mg/dL Microbiology Date/Time Source Procedure Growth Status 01/13/24 22:52 Nose MRSA Screen - Final Complete 01/13/24 16:53 Blood Blood Culture - Preliminary NO GROWTH AFTER 72 HOURS OF INCUBATION. Resulted Problem List/Assessment/Plan Problem List/Assessment/Plan Ascites with the ascitic fluid leaking through his abdomen Liver cirrhosis Thrombocytopenia Elevated liver enzymes/transaminitis--> down trending gradually ( T. dwayne is up trending) Lactic acidosis--> resolved hypoalbuminemia History heavy alcohol Acute kidney injury CHF Plan: Albumin Continue ursodiol 300 mg bid Continue Prednisone 20 mg every day Vitamin K 10 mg sc daily for 3 days. Monitor labs Clear liquid diet; increase fluid intake to 1400ml DC alcohol discussed extensively We will continue to monitor the patient Goal of care discussed for more than 18 minute: Full code Case and plan discussed with Dr. Farrell Plan discussed with: Patient Dietary Evaluation Review Comments: Advance diet to 2 gNa CCHO-75, Renal Specific-80g protein, 3K, low phos diet when medically feasible. Monitor PO intake to meet 75% of his needs Expected Outcomes/Goals: Gradual weight loss, improved nutrition related lab values BRIGHT HARPER RESIDENT Jan 16, 2024 20:01
[2024-01-16 21:00] VITALS: BP 128/73; PULSE 79; RESP 18; TEMP 97.4; O2SAT 98
[2024-01-16] MEDS: PHYTONADIONE (VIT K)10 MG/ML 1ML VIAL SUBCUT ONE (22:05)
[2024-01-17] VITALS (7 sets, daily range): BP systolic 109–128; BP diastolic 63–75; PULSE 73–89; RESP 17–20; TEMP 97.4–98; O2SAT 95–100
[2024-01-17 07:56] LABS: Basophils # (auto) 0.1 10 ^3/uL (0-0.2); Basophils % (auto) 0.7 % (0.0-2.0); Eosinophils # (auto) 0.1 10 ^3/uL (0-0.8); Eosinophils % (auto) 0.4 % (0.0-7.0); Hematocrit 35.7 % (41.0-53.0); Hemoglobin 12.1 g/dL (13.5-17.5); Lymphocytes # (auto) 0.7 10 ^3/uL (0.4-5.4); Lymphocytes % (auto) 4.8 % (10.0-50.0); Mean Corpuscular Hemoglobin 38.1 pg (28.0-32.0); Mean Corpuscular Hgb Conc. 33.9 g/dL (32.0-36.0); Mean Corpuscular Volume 112.4 fL (80.0-100.0); Monocytes # (auto) 0.9 10 ^3/uL (0-1.3); Monocytes % (auto) 6.3 % (0.0-12.0); Neutrophils # (auto) 12.5 10 ^3/uL (1.6-8.6); Neutrophils % (auto) 87.8 % (37.0-80.0); Nucleated Red Blood Cells % 0.1 %; Platelet Count (auto) 96 10^3/uL (140-450); Red Blood Cells 3.17 10^6/uL (4.5-5.90); White Blood Cell 14.3 10^3/uL (4.4-10.8)
[2024-01-17 08:09] LABS: Alkaline Phosphatase 114 U/L (46-116); Anion Gap 12 (5-15); Calcium 8.2 mg/dL (8.7-10.4); Carbon Dioxide 18 mmol/L (20-31); Chloride 108 mmol/L (98-107); Magnesium 2.4 mg/dL (1.6-2.6); Potassium 3.8 mmol/L (3.5-5.1); Sodium 138 mmol/L (136-145)
[2024-01-17 08:10] LABS: Bilirubin, Total 26.5 mg/dL (0.2-1.0)
[2024-01-17 08:14] LABS: Glucose 409 mg/dL (74-106)
[2024-01-17 08:26] LABS: Alanine Aminotransferase 159 U/L (7-40); Aspartate Aminotransferase 118 U/L (13-40); Blood Urea Nitrogen 53 mg/dL (9-23); Total Protein 6.7 g/dL (5.7-8.2)
[2024-01-17] MEDS: InsuLIN REG 1unit/0.01ml Soln (100units/ml) IV ONE ×3 (08:45→15:49)
[2024-01-17 08:48] LABS: Macrocytosis Marked; Platelet Estimate Decreased
[2024-01-17] MEDS: SPIRONOLACTONE 25 MG TAB PO SCH (09:48)
[2024-01-17 15:15] LABS: Chloride 108 mmol/L (98-107); Potassium 4.2 mmol/L (3.5-5.1); Sodium 135 mmol/L (136-145)
[2024-01-17 15:16] LABS: Anion Gap 11 (5-15); Carbon Dioxide 16 mmol/L (20-31)
[2024-01-17 15:17] LABS: Calcium 7.9 mg/dL (8.7-10.4)
--- NOTE | 2024-01-17 15:27 | DVHPN2 ---
Progress Note Date Seen: Jan 17, 2024 Medical Necessity Reason Pt with a Central, PICC or Fol: No Subjective Review of Systems No new symptoms reported. States fluid restriction was increased to 1400ml/day. Patient reports: No new complaints, Feels better Objective vital signs Vital Sign Date Time Temp Pulse Resp B/P (MAP) Pulse Ox O2 Delivery O2 Flow Rate FiO2 01/17/24 14:10 124/75 01/17/24 09:00 97.8 73 20 99 97.8 01/17/24 08:10 Room Air* 0 21 Total Intake and Output 01/16/24 01/16/24 01/17/24 15:00 23:00 07:00 Intake Total 150 ml 650 ml 950 ml Output Total 1100 ml 1750 ml Balance 150 ml -450 ml -800 ml medications Current Medications Medications Dose Ordered Sig/Phuong Route Start Time Stop Time Status Last Admin Dose Admin Thiamine HCl 100 mg DAILY PO 01/13/24 16:15 01/17/24 09:48 100 MG Folic Acid 1 mg DAILY PO 01/13/24 16:15 01/17/24 09:47 1 MG Sodium Chloride 10 ml Q8HR IV 01/13/24 22:00 01/17/24 14:10 10 ML Docusate Sodium 100 mg BIDPRN PRN PO 01/13/24 16:15 Ondansetron HCl 4 mg Q4HP PRN IV 01/13/24 16:15 Patient Own Medication 30 ml TID PO 01/13/24 22:00 UNV Patient Own Medication 300 mg BID PO 01/13/24 22:00 UNV Lactulose 30 ml TID PO 01/13/24 22:00 01/15/24 13:59 30 ML Ursodiol 300 mg BID PO 01/13/24 22:00 01/17/24 09:49 300 MG Pantoprazole Sodium 40 mg DAILY IV 01/13/24 16:30 01/17/24 09:47 40 MG Piperacillin Sod/ Tazobactam Sod 100 ml @ 100 mls/hr Q8H IV 01/14/24 02:00 01/17/24 09:46 100 MLS/HR Octreotide Acetate 100 mcg TID SUBCUT 01/14/24 22:00 01/17/24 14:52 100 MCG Midodrine 10 mg TID@0600,1200,1800 PO 01/14/24 18:00 11/3/24 14:09 10 MG Hydromorphone HCl 0.25 mg Q4HP PRN IV 01/14/24 15:15 Prednisone 20 mg BID PO 01/14/24 22:00 01/17/24 09:47 20 MG Furosemide 20 mg QID IV 01/16/24 18:00 01/17/24 14:10 20 MG Spironolactone 25 mg DAILY PO 01/17/24 10:00 01/17/24 09:48 25 MG Examination General: Appears stated age, obese, in no acute distress Pulm: Clear to auscultation bilaterally CVS: RRR, normal S1 and S2 Ext: + BLE edema Skin: + Jaundice Neuro: Alert and oriented x4 laboratory and microbiology Laboratory Tests 01/17/24 06:17 Test 01/17/24 14:55 Range/Units Serum Glucose Pending Microbiology Date/Time Source Procedure Growth Status 01/13/24 22:52 Nose MRSA Screen - Final Complete 01/13/24 16:53 Blood Blood Culture - Preliminary NO GROWTH AFTER 72 HOURS OF INCUBATION. Resulted Labs and/or images reviewed: Labs reviewed by me Problem List/Assessment/Plan Problem List/Assessment/Plan SHAYNA superimposed on CKD secondary to hemodynamic mediated- ongoing. Downtrend in creat noted 2.04, slight improvement in eGFR 42. Hepatorenal syndrome Decompensated liver cirrhosis Jaundice r/o cholangitis Hypokalemia-resolved Hyperglycemia DM type II Abd U/S Impression: The right kidney measures 13 cm. The left kidney measures 10 cm. The bilateral kidneys are normal in contour, size, and shape. The echogenicity is normal. There is no hydronephrosis. REC: Serial chemistry panels Urine Na, urine creat- to calculate FENa Continue to closely monitor fluids and electrolytes Avoid nephrotoxic medications/IV contrast if able Strict I&O's KCl replacement as needed Will continue to follow Discussed case with Dr. Joseph Dunlap Plan discussed with: Patient My Orders My Orders Orders - YOCASTA ENGLAND Procedure Category Date Status Time Complete Blood Count LAB 01/18/24 Verified 04:00 Basic Metabolic Panel LAB 01/18/24 Verified 04:00 Urine Creatinine LAB 01/17/24 Logged 15:07 Urine Sodium LAB 01/17/24 Logged 15:07 Dietary Evaluation Review Comments: Advance diet to 2 gNa CCHO-75, Renal Specific-80g protein, 3K, low phos diet when medically feasible. Monitor PO intake to meet 75% of his needs Expected Outcomes/Goals: Gradual weight loss, improved nutrition related lab values YOCASTA ENGLAND Jan 17, 2024 15:27
[2024-01-17 15:32] LABS: Glucose 567 mg/dL (74-106)
[2024-01-17 15:58] LABS: BUN/Creatinine Ratio 23.4 (10.0-20.0); Blood Urea Nitrogen 44 mg/dL (9-23)
[2024-01-17] MEDS ORDERED: DEXTROSE (50%) 50ML SYRG IV PRN (16:15)
[2024-01-17] MEDS ORDERED: DEXTROSE (50%) 50ML SYRG IV ONE (16:15)
[2024-01-17] MEDS: ACCU-CHEK COMFORT CURVE STRIP VI SCH (20:12)
[2024-01-17] MEDS: InsuLIN REG 1unit/0.01ml Soln (100units/ml) SC SCH (20:15)
--- NOTE | 2024-01-17 20:28 | DVHPN2 ---
Progress Note - Dictate Date Seen: Jan 17, 2024 Medical Necessity Reason Pt with a Central, PICC or Fol: No Subjective No new complaints Patient is running high blood sugars Regular diet change to carb controlled diet Get sliding scale insulin regimen Persistent elevation in liver enzymes and elevated bilirubin that is worsening vital signs Vital Sign Date Time Temp Pulse Resp B/P (MAP) Pulse Ox O2 Delivery O2 Flow Rate FiO2 01/17/24 18:48 114/71 01/17/24 17:00 97.8 80 20 100 97.8 01/17/24 08:10 Room Air* 0 21 Total Intake and Output 01/16/24 01/16/24 01/17/24 15:00 23:00 07:00 Intake Total 150 ml 650 ml 950 ml Output Total 1100 ml 1750 ml Balance 150 ml -450 ml -800 ml medications Current Medications Medications Dose Ordered Sig/Phuong Route Start Time Stop Time Status Last Admin Dose Admin Thiamine HCl 100 mg DAILY PO 01/13/24 16:15 01/17/24 09:48 100 MG Folic Acid 1 mg DAILY PO 01/13/24 16:15 01/17/24 09:47 1 MG Sodium Chloride 10 ml Q8HR IV 01/13/24 22:00 01/17/24 14:10 10 ML Docusate Sodium 100 mg BIDPRN PRN PO 01/13/24 16:15 Ondansetron HCl 4 mg Q4HP PRN IV 01/13/24 16:15 Patient Own Medication 30 ml TID PO 01/13/24 22:00 UNV Patient Own Medication 300 mg BID PO 01/13/24 22:00 UNV Lactulose 30 ml TID PO 01/13/24 22:00 01/15/24 13:59 30 ML Ursodiol 300 mg BID PO 01/13/24 22:00 01/17/24 09:49 300 MG Pantoprazole Sodium 40 mg DAILY IV 01/13/24 16:30 01/17/24 09:47 40 MG Piperacillin Sod/ Tazobactam Sod 100 ml @ 100 mls/hr Q8H IV 01/14/24 02:00 01/17/24 18:49 100 MLS/HR Octreotide Acetate 100 mcg TID SUBCUT 01/14/24 22:00 01/17/24 14:52 100 MCG Midodrine 10 mg TID@0600,1200,1800 PO 01/14/24 18:00 01/17/24 18:44 10 MG Hydromorphone HCl 0.25 mg Q4HP PRN IV 01/14/24 15:15 Prednisone 20 mg BID PO 01/14/24 22:00 01/17/24 09:47 20 MG Furosemide 20 mg QID IV 01/16/24 18:00 01/17/24 18:48 20 MG Spironolactone 25 mg DAILY PO 01/17/24 10:00 01/17/24 09:48 25 MG Diagnostic Test (Pha) 1 strip IQ4HR 01/17/24 20:00 01/17/24 20:12 1 STRIP Insulin Human Regular IQ4HR SC 01/17/24 20:00 01/17/24 20:15 15 UNITS Dextrose 50 ml UD PRN IV 01/17/24 16:15 objective General examination- morbidly obese male jaundiced lying not in any respiratory distress HEENT- icterus, no acute nasal discharge Cardiovascular- S1-S2 audible, rate and rhythm regular, no murmur Respiratory- CTAB, no wheeze or rhonchi Gastrointestinal- excoriation on abdomen, fluid leaking through the skin on the left lower abdominal side, no abdominal tenderness, lower abdominal tenderness, bowel sound+. Musculoskeletal-no acute joint swelling or tenderness or redness Lower extremity- dry callus on the bottom of the feet, edema bilateral, swelling, this coloration from possibly venous stasis Neurological- cranial nerves intact, no acute dysarthria or dysphagia Psychiatry- denies depression or SI or HI Skin- : + jaundice laboratory and microbiology Laboratory Tests 01/17/24 14:55 01/17/24 06:17 Test 01/17/24 14:55 Range/Units Serum Glucose 567 #*H 74-106 mg/dL Problems(with codes): (1) Cirrhosis (2) Morbid obesity (3) Jaundice (4) Alcoholic steatohepatitis (5) Elevated liver enzymes (6) Generalized weakness (7) Hepatic encephalopathy Prognosis Plan: Change diet to carb controlled diet Dietary changes advised to patient Patient was given IV Albumin Continue ursodiol 300 mg bid Continue Prednisone 20 mg every day Vitamin K 10 mg sc daily for 3 days. Monitor labs Increase fluid intake to 1400ml DC alcohol discussed extensively We will continue to monitor the patient Dietary Evaluation Review Comments: Advance diet to 2 gNa CCHO-75, Renal Specific-80g protein, 3K, low phos diet when medically feasible. Monitor PO intake to meet 75% of his needs Expected Outcomes/Goals: Gradual weight loss, improved nutrition related lab values Plan discussed with: Patient, Other (Nurse) RYAN BAUMAN MD Jan 17, 2024 20:28
--- NOTE | 2024-01-17 23:32 | DVHPN2 ---
Subjective 38-year-old male recently discharged AH failure, cirrhosis, admitted for abdominal pain. Patient is seen by me during day 01/14 No pocket to tap. Slight improvement. Seen by GI today. Continue with steroids and antibiotics. 01/15- he is tolerating p.o., good urine output, A/O x4 patient has been denying his Lasix due to low blood pressure, is also denying monitoring believing it will cause his blood pressure to drop. We will change his Lasix to q.6 H and reinforce importance of treatment during the hospitalization Reviewed: Care Plan, H&P, Labs, Medications, Previous Orders, Radiology Changes from previous H/P or p: No Changes General: Per HPI Objective Vitals Vital Signs Date Time Temp Pulse Resp B/P (MAP) Pulse Ox O2 Delivery O2 Flow Rate FiO2 01/17/24 21:00 97.6 78 19 128/63 (84) 95 97.6 01/17/24 08:10 Room Air* 0 21 Intake/Output Intake and Output 01/17/24 07:00 Intake Total 1750 ml Output Total 2850 ml Balance -1100 ml Intake Oral 1300 ml IV Total 450 ml Output Urine Total 2850 ml # Voids 1 # Bowel Movements 9 Exam Alert, oriented x3 Jaundice Morbidly obese BMI 52 PERRLA No JVD Clear breath sounds S1-S2 regular rate and rhythm , distant Abdomen soft nontender, no hepatomegaly. Abdominal folds without erythema or skin breakdown. Equal strength bilaterally on upper and lower extremities Weeping edema bill weeping fluid is jaundiced as well. Ulcer Medications Current Medications Medications Dose Ordered Sig/Phuong Route Start Time Stop Time Status Last Admin Dose Admin Thiamine HCl 100 mg DAILY PO 01/13/24 16:15 01/17/24 09:48 100 MG Folic Acid 1 mg DAILY PO 01/13/24 16:15 01/17/24 09:47 1 MG Sodium Chloride 10 ml Q8HR IV 01/13/24 22:00 01/17/24 14:10 10 ML Docusate Sodium 100 mg BIDPRN PRN PO 01/13/24 16:15 Ondansetron HCl 4 mg Q4HP PRN IV 01/13/24 16:15 Patient Own Medication 30 ml TID PO 01/13/24 22:00 UNV Patient Own Medication 300 mg BID PO 01/13/24 22:00 UNV Lactulose 30 ml TID PO 01/13/24 22:00 01/15/24 13:59 30 ML Ursodiol 300 mg BID PO 01/13/24 22:00 01/17/24 09:49 300 MG Pantoprazole Sodium 40 mg DAILY IV 01/13/24 16:30 01/17/24 09:47 40 MG Piperacillin Sod/ Tazobactam Sod 100 ml @ 100 mls/hr Q8H IV 01/14/24 02:00 01/17/24 18:49 100 MLS/HR Octreotide Acetate 100 mcg TID SUBCUT 01/14/24 22:00 01/17/24 14:52 100 MCG Midodrine 10 mg TID@0600,1200,1800 PO 01/14/24 18:00 01/17/24 18:44 10 MG Hydromorphone HCl 0.25 mg Q4HP PRN IV 01/14/24 15:15 Prednisone 20 mg BID PO 01/14/24 22:00 01/17/24 09:47 20 MG Furosemide 20 mg QID IV 01/16/24 18:00 01/17/24 18:48 20 MG Spironolactone 25 mg DAILY PO 01/17/24 10:00 01/17/24 09:48 25 MG Diagnostic Test (Pha) 1 strip IQ4HR 01/17/24 20:00 01/17/24 20:12 1 STRIP Insulin Human Regular IQ4HR SC 01/17/24 20:00 01/17/24 20:15 15 UNITS Dextrose 50 ml UD PRN IV 01/17/24 16:15 Laboratory Results Laboratory Tests 01/17/24 06:17 01/17/24 14:55 Chemistry Test 01/17/24 06:17 01/17/24 14:55 Albumin 3.0 g/dL (3.2-4.8) L Calcium Level 8.2 mg/dL (8.7-10.4) L 7.9 mg/dL (8.7-10.4) L Magnesium Level 2.4 mg/dL (1.6-2.6) Total Protein 6.7 g/dL (5.7-8.2) LFT Test 01/17/24 06:17 Alanine Aminotransferase (ALT) 159 U/L (7-40) H Alkaline Phosphatase 114 U/L (46-116) Aspartate Amino Transferase (AST) 118 U/L (13-40) H Total Bilirubin 26.5 mg/dL (0.2-1.0) H Microbiology Microbiology Date/Time Source Procedure Growth Status 01/13/24 22:52 Nose MRSA Screen - Final Complete 01/13/24 16:53 Blood Blood Culture - Preliminary NO GROWTH AFTER 72 HOURS OF INCUBATION. Resulted Labs and/or images reviewed: Labs reviewed by me, Image(s) reviewed by me Assessment/Plan Assessment/Plan 01/16-patient is at baseline. Continues to have good urine output. Lasix yesterday and was adjusted and patient's medical compliance was reinforced yesterday. Today he is feeling great but has hyperglycemia with no history of diabetes. Jaundice acute liver failure? cirrhosis Alcohol use Macrocytic anemia Leukocytosis Thrombocytopenia Lactic acidosis HAGMA Low albumin Severely elevated bilirubin Transaminitis Elevated INR abdominal pain, cannot r/o SBP SHAYNA likely hepatorenal Hyperglycemia consult palliative maddrey's 72.9 MELD 34prednisone 20mg BID midodrine 10mg TID ursodiol albumin GI consult appreciated thiamine and folate consult radiology to tap, unable to find pocket cover with zosyn for sepsis and presumed SBP strict I&O daily weight will start aldactone to help diuresis. cont albumin. change lasix to 20 qid from 40 bid keep K 4 Ph 3 Mg 2 advance diet as tolerated DVT ppx hold for thrombocytopenia condition critical prognosis poor Medical decision maker Treva Daley [phone] Code status full code Goals of care curative shelter mechanical and ventilator support: No Plan discussed with: Patient My Orders Orders - ANTHONY WILLS MD Procedure Category Date Status Time Glucose Blood PHA 01/17/24 In Process (Accu-Chek Comfort 20:00 Insulin R (Human) PHA 01/17/24 In Process (Insulin R) 20:00 Dextrose 50% Syringe PHA 01/17/24 In Process 16:15 Date of Service: Jan 17, 2024 Billing Provider: ANTHONY WILLS MD Common Visit Codes: [id number] INP/OBS CARE(HIGH) ANTHONY WILLS MD Jan 17, 2024 23:32
[2024-01-18] VITALS (8 sets, daily range): BP systolic 99–116; BP diastolic 58–69; PULSE 70–77; RESP 16–19; TEMP 97.6–98.3; O2SAT 97–100
[2024-01-18] MEDS: PIPERACILLIN-TAZOB 3.375GM 100 ML IV SCH ×2 (03:46→12:09)
[2024-01-18 06:29] LABS: Eosinophils # (auto) 0.1 10 ^3/uL (0-0.8); Hemoglobin 11.4 g/dL (13.5-17.5); Lymphocytes # (auto) 0.8 10 ^3/uL (0.4-5.4); Neutrophils # (auto) 10.8 10 ^3/uL (1.6-8.6)
[2024-01-18 06:32] LABS: Basophils # (auto) 0.1 10 ^3/uL (0-0.2); Basophils % (auto) 0.5 % (0.0-2.0); Eosinophils % (auto) 0.6 % (0.0-7.0); Hematocrit 33.5 % (41.0-53.0); Lymphocytes % (auto) 6.8 % (10.0-50.0); Mean Corpuscular Hemoglobin 38.1 pg (28.0-32.0); Mean Corpuscular Hgb Conc. 34.1 g/dL (32.0-36.0); Mean Corpuscular Volume 111.8 fL (80.0-100.0); Monocytes # (auto) 0.7 10 ^3/uL (0-1.3); Monocytes % (auto) 5.4 % (0.0-12.0); Neutrophils % (auto) 86.7 % (37.0-80.0); Platelet Count (auto) 85 10^3/uL (140-450); Red Cell Distribution Width 16.5 % (11.8-14.3); White Blood Cell 12.4 10^3/uL (4.4-10.8)
[2024-01-18 06:43] LABS: Albumin 2.9 g/dL (3.2-4.8); Alkaline Phosphatase 106 U/L (46-116); Anion Gap 12 (5-15); Calcium 8.2 mg/dL (8.7-10.4); Carbon Dioxide 20 mmol/L (20-31); Chloride 107 mmol/L (98-107); Potassium 3.6 mmol/L (3.5-5.1); Sodium 139 mmol/L (136-145)
[2024-01-18 06:44] LABS: Bilirubin, Total 23.1 mg/dL (0.2-1.0)
[2024-01-18 06:51] LABS: Alanine Aminotransferase 151 U/L (7-40); Aspartate Aminotransferase 106 U/L (13-40); Total Protein 6.5 g/dL (5.7-8.2)
[2024-01-18 06:53] LABS: Blood Urea Nitrogen 57 mg/dL (9-23); Glucose 283 mg/dL (74-106)
[2024-01-18 11:45] LABS: Creatinine, Urine 53.38 mg/dL (30.0-125.0)
--- NOTE | 2024-01-18 12:51 | DVHPN2 ---
Progress Note Date Seen: Jan 18, 2024 Medical Necessity Reason Pt with a Central, PICC or Fol: No Subjective Patient reports: No new complaints Review of Systems: HEENT:Abnormal Objective vital signs Vital Sign Date Time Temp Pulse Resp B/P (MAP) Pulse Ox O2 Delivery O2 Flow Rate FiO2 01/18/24 12:09 105/61 01/18/24 09:00 98.1 72 16 99 98.1 01/18/24 08:00 Room Air* 0 21 Total Intake and Output 01/17/24 01/17/24 01/18/24 15:00 23:00 07:00 Intake Total 0 ml 400 ml 1000 ml Output Total 2350 ml 3325 ml Balance 0 ml -1950 ml -2325 ml medications Current Medications Medications Dose Ordered Sig/Phuong Route Start Time Stop Time Status Last Admin Dose Admin Thiamine HCl 100 mg DAILY PO 01/13/24 16:15 01/18/24 08:22 100 MG Folic Acid 1 mg DAILY PO 01/13/24 16:15 01/18/24 08:21 1 MG Sodium Chloride 10 ml Q8HR IV 01/13/24 22:00 01/18/24 05:29 10 ML Docusate Sodium 100 mg BIDPRN PRN PO 01/13/24 16:15 Ondansetron HCl 4 mg Q4HP PRN IV 01/13/24 16:15 Patient Own Medication 30 ml TID PO 01/13/24 22:00 UNV Patient Own Medication 300 mg BID PO 01/13/24 22:00 UNV Lactulose 30 ml TID PO 01/13/24 22:00 01/18/24 05:30 30 ML Ursodiol 300 mg BID PO 01/13/24 22:00 01/18/24 08:22 300 MG Pantoprazole Sodium 40 mg DAILY IV 01/13/24 16:30 01/18/24 08:21 40 MG Octreotide Acetate 100 mcg TID SUBCUT 01/14/24 22:00 01/18/24 05:34 100 MCG Midodrine 10 mg TID@0600,1200,1800 PO 01/14/24 18:00 01/18/24 12:09 10 MG Hydromorphone HCl 0.25 mg Q4HP PRN IV 01/14/24 15:15 Prednisone 20 mg BID PO 01/14/24 22:00 01/18/24 08:22 20 MG Furosemide 20 mg QID IV 01/16/24 18:00 01/18/24 12:09 20 MG Spironolactone 25 mg DAILY PO 01/17/24 10:00 01/18/24 08:22 25 MG Diagnostic Test (Pha) 1 strip IQ4HR 01/17/24 20:00 01/18/24 12:09 1 STRIP Insulin Human Regular IQ4HR SC 01/17/24 20:00 01/18/24 12:10 12 UNITS Dextrose 50 ml UD PRN IV 01/17/24 16:15 Piperacillin Sod/ Tazobactam Sod 100 ml @ 100 mls/hr Q8H IV 01/18/24 12:00 01/18/24 12:09 100 MLS/HR Examination: HEENT:Abnormal, ABDOMEN:Abnormal laboratory and microbiology Laboratory Tests 01/18/24 05:22 Test 01/18/24 05:22 Range/Units Serum Glucose 283 #H 74-106 mg/dL Microbiology Date/Time Source Procedure Growth Status 01/13/24 22:52 Nose MRSA Screen - Final Complete 01/13/24 16:53 Blood Blood Culture - Preliminary NO GROWTH AFTER 72 HOURS OF INCUBATION. 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 Monitor PO intake to meet 75% of his needs Expected Outcomes/Goals: Gradual weight loss, improved nutrition related lab values MIKEL GONZALEZ MD Jan 18, 2024 12:51
--- NOTE | 2024-01-18 15:34 | DVHPN2 ---
Subjective 38-year-old male recently discharged AH failure, cirrhosis, admitted for abdominal pain. Patient is seen by me during seen by GI and nephro, cw current treatment, hyperglycemia 2/2 steroid will manage with insulin, will ened cipro and insulin on discahrge Reviewed: Care Plan, H&P, Labs, Medications, Previous Orders, Radiology Changes from previous H/P or p: No Changes General: Per HPI Objective Vitals Vital Signs Date Time Temp Pulse Resp B/P (MAP) Pulse Ox O2 Delivery O2 Flow Rate FiO2 01/18/24 13:00 98.1 72 17 100/64 (76) 98 98.1 01/18/24 08:00 Room Air* 0 21 Intake/Output Intake and Output 01/18/24 07:00 Intake Total 1400 ml Output Total 5675 ml Balance -4275 ml Intake Oral 1400 ml Output Urine Total 5675 ml # Bowel Movements 3 Exam Alert, oriented x3 Jaundice Morbidly obese PERRLA No JVD Clear breath sounds S1-S2 regular rate and rhythm , distant Abdomen soft nontender, no hepatomegaly Equal strength bilaterally on upper and lower extremities Weeping edema Ulcer Medications Current Medications Medications Dose Ordered Sig/Phuong Route Start Time Stop Time Status Last Admin Dose Admin Thiamine HCl 100 mg DAILY PO 01/13/24 16:15 01/18/24 08:22 100 MG Folic Acid 1 mg DAILY PO 01/13/24 16:15 01/18/24 08:21 1 MG Sodium Chloride 10 ml Q8HR IV 01/13/24 22:00 01/18/24 13:28 10 ML Docusate Sodium 100 mg BIDPRN PRN PO 01/13/24 16:15 Ondansetron HCl 4 mg Q4HP PRN IV 01/13/24 16:15 Patient Own Medication 30 ml TID PO 01/13/24 22:00 UNV Patient Own Medication 300 mg BID PO 01/13/24 22:00 UNV Lactulose 30 ml TID PO 01/13/24 22:00 01/18/24 13:28 30 ML Ursodiol 300 mg BID PO 01/13/24 22:00 01/18/24 08:22 300 MG Pantoprazole Sodium 40 mg DAILY IV 01/13/24 16:30 01/18/24 08:21 40 MG Octreotide Acetate 100 mcg TID SUBCUT 01/14/24 22:00 01/18/24 13:34 100 MCG Midodrine 10 mg TID@0600,1200,1800 PO 01/14/24 18:00 01/18/24 12:09 10 MG Hydromorphone HCl 0.25 mg Q4HP PRN IV 01/14/24 15:15 Prednisone 20 mg BID PO 01/14/24 22:00 01/18/24 08:22 20 MG Furosemide 20 mg QID IV 01/16/24 18:00 01/18/24 12:09 20 MG Spironolactone 25 mg DAILY PO 01/17/24 10:00 01/18/24 08:22 25 MG Diagnostic Test (Pha) 1 strip IQ4HR 01/17/24 20:00 01/18/24 12:09 1 STRIP Insulin Human Regular IQ4HR SC 01/17/24 20:00 01/18/24 12:10 12 UNITS Dextrose 50 ml UD PRN IV 01/17/24 16:15 Piperacillin Sod/ Tazobactam Sod 100 ml @ 100 mls/hr Q8H IV 01/18/24 12:00 01/18/24 12:09 100 MLS/HR Laboratory Results Laboratory Tests 01/18/24 05:22 Chemistry Test 01/18/24 05:22 Albumin 2.9 g/dL (3.2-4.8) L Calcium Level 8.2 mg/dL (8.7-10.4) L Magnesium Level 2.0 mg/dL (1.6-2.6) Total Protein 6.5 g/dL (5.7-8.2) LFT Test 01/18/24 05:22 Alanine Aminotransferase (ALT) 151 U/L (7-40) H Alkaline Phosphatase 106 U/L (46-116) Aspartate Amino Transferase (AST) 106 U/L (13-40) H Total Bilirubin 23.1 mg/dL (0.2-1.0) H Urinalysis Test 01/18/24 10:47 Urine Creatinine 53.38 mg/dL (30.0-125.0) Urine Sodium 37 mmol/L (40-220) L Microbiology Microbiology Date/Time Source Procedure Growth Status 01/13/24 22:52 Nose MRSA Screen - Final Complete 01/13/24 16:53 Blood Blood Culture - Preliminary NO GROWTH AFTER 72 HOURS OF INCUBATION. Resulted Assessment/Plan Assessment/Plan Jaundice acute liver failure? cirrhosis Alcohol use Macrocytic anemia Leukocytosis Thrombocytopenia Lactic acidosis HAGMA Low albumin Severely elevated bilirubin Transaminitis Elevated INR abdominal pain, cannot r/o SBP SHAYNA likely hepatorenal consult palliative daniel's 72.9 MELD 34prednisone 20mg BID midodrine 10mg TID ursodiol albumin GI consult appreciated thiamine and folate consult radiology to tap, unable to find pocket cover with zosyn for sepsis and presumed SBP strict I&O daily weight insulin keep K 4 Ph 3 Mg 2 advance diet as tolerated DVT ppx hold for thrombocytopenia condition critical prognosis poor Medical decision maker Treva Daley [phone] Code status full code Goals of care curative terminal supervisor mechanical and ventilator support: No Plan discussed with: Patient My Orders Orders - BRYANT SIMPSON MD Procedure Category Date Status Time Insulin Lantus PHA 01/18/24 Logged (Glargine) (Lantus) 22:00 Ac Mild Insulin Scale HAO 01/18/24 In Process (Not Rx) 15:27 Date of Service: Jan 18, 2024 Billing Provider: BRYANT SIMPSON MD Common Visit Codes: [id number] INP/OBS CARE(HIGH) BRYANT SIMPSON MD Jan 18, 2024 15:34
[2024-01-18] MEDS: ACCU-CHEK COMFORT CURVE STRIP VI SCH (17:26)
[2024-01-18] MEDS: InsuLIN REG 1unit/0.01ml Soln (100units/ml) SC SCH (17:27)
--- NOTE | 2024-01-18 19:43 | DVHPN2 ---
Progress Note - Dictate Date Seen: Jan 18, 2024 Medical Necessity Reason Pt with a Central, PICC or Fol: No Subjective No new complaints Patient is running high blood sugars maybe due to steroids Regular diet change to carb controlled diet Liver enzymes trending down vital signs Vital Sign Date Time Temp Pulse Resp B/P (MAP) Pulse Ox O2 Delivery O2 Flow Rate FiO2 01/18/24 17:26 102/62 01/18/24 17:00 97.6 73 17 97 97.6 01/18/24 08:00 Room Air* 0 21 Total Intake and Output 01/17/24 01/17/24 01/18/24 15:00 23:00 07:00 Intake Total 0 ml 400 ml 1000 ml Output Total 2350 ml 3325 ml Balance 0 ml -1950 ml -2325 ml medications Current Medications Medications Dose Ordered Sig/Phuong Route Start Time Stop Time Status Last Admin Dose Admin Thiamine HCl 100 mg DAILY PO 01/13/24 16:15 01/18/24 08:22 100 MG Folic Acid 1 mg DAILY PO 01/13/24 16:15 01/18/24 08:21 1 MG Sodium Chloride 10 ml Q8HR IV 01/13/24 22:00 01/18/24 13:28 10 ML Docusate Sodium 100 mg BIDPRN PRN PO 01/13/24 16:15 Ondansetron HCl 4 mg Q4HP PRN IV 01/13/24 16:15 Patient Own Medication 30 ml TID PO 01/13/24 22:00 UNV Patient Own Medication 300 mg BID PO 01/13/24 22:00 UNV Lactulose 30 ml TID PO 01/13/24 22:00 01/18/24 13:28 30 ML Ursodiol 300 mg BID PO 01/13/24 22:00 01/18/24 08:22 300 MG Pantoprazole Sodium 40 mg DAILY IV 01/13/24 16:30 01/18/24 08:21 40 MG Octreotide Acetate 100 mcg TID SUBCUT 01/14/24 22:00 01/18/24 13:34 100 MCG Midodrine 10 mg TID@0600,1200,1800 PO 01/14/24 18:00 01/18/24 17:26 10 MG Hydromorphone HCl 0.25 mg Q4HP PRN IV 01/14/24 15:15 Prednisone 20 mg BID PO 01/14/24 22:00 01/18/24 08:22 20 MG Furosemide 20 mg QID IV 01/16/24 18:00 01/18/24 17:26 20 MG Spironolactone 25 mg DAILY PO 01/17/24 10:00 01/18/24 08:22 25 MG Dextrose 50 ml UD PRN IV 01/17/24 16:15 Piperacillin Sod/ Tazobactam Sod 100 ml @ 100 mls/hr Q8H IV 01/18/24 12:00 01/18/24 12:09 100 MLS/HR Insulin Glargine 15 units HS SC 01/18/24 22:00 Diagnostic Test (Pha) 1 strip ACHS 01/18/24 17:00 01/18/24 17:26 1 STRIP Insulin Human Regular ACHS SC 01/18/24 17:00 01/18/24 17:27 12 UNITS objective General examination- morbidly obese male jaundiced lying not in any respiratory distress HEENT- icterus, no acute nasal discharge Cardiovascular- S1-S2 audible, rate and rhythm regular, no murmur Respiratory- CTAB, no wheeze or rhonchi Gastrointestinal- excoriation on abdomen, fluid leaking through the skin on the left lower abdominal side, no abdominal tenderness, lower abdominal tenderness, bowel sound+. Musculoskeletal-no acute joint swelling or tenderness or redness Lower extremity- dry callus on the bottom of the feet, edema bilateral, swelling, this coloration from possibly venous stasis Neurological- cranial nerves intact, no acute dysarthria or dysphagia Psychiatry- denies depression or SI or HI Skin- : + jaundice laboratory and microbiology Laboratory Tests 01/18/24 05:22 Test 01/18/24 05:22 Range/Units Serum Glucose 283 #H 74-106 mg/dL Problems(with codes): (1) Alcoholic steatohepatitis (2) Elevated liver enzymes (3) Generalized weakness (4) Hepatic encephalopathy (5) Sepsis (6) Cirrhosis (7) Morbid obesity (8) Leukocytosis, unspecified Prognosis Plan: Patient was given IV Albumin Continue ursodiol 300 mg bid Continue Prednisone 20 mg po bid; will taper over next few days Vitamin K 10 mg sc daily for 3 days. Monitor labs Increase fluid intake to 1400ml DC alcohol discussed extensively We will continue to monitor the patient Dietary Evaluation Review Comments: [facility], Renal Specific-80g protein, 3K, low phos diet when medically feasible. Monitor PO intake to meet 75% of his needs Expected Outcomes/Goals: Gradual weight loss, improved nutrition related lab values Plan discussed with: Patient RYAN BAUMAN MD Jan 18, 2024 19:43
[2024-01-18] MEDS: INSULIN LANTUS (GLARGINE) 1 /0.01ml (100units/ml) SC SCH (21:30)
[2024-01-19 05:00] VITALS: BP 102/61; PULSE 74; RESP 16; TEMP 97.4; O2SAT 99
[2024-01-19 08:00] VITALS: O2SAT 98
[2024-01-19 09:04] VITALS: BP 120/66; PULSE 77; RESP 17; TEMP 98; O2SAT 100
[2024-01-19 12:35] VITALS: BP 104/65; PULSE 82; RESP 16; TEMP 98.6; O2SAT 100
--- NOTE | 2024-01-19 15:32 | DVHPN2 ---
Subjective 38-year-old male recently discharged AH failure, cirrhosis, admitted for abdominal pain. Patient is seen by me during Feeling better today, lab slightly improved, discussed with patient with presumption of SBP. We will continue IV antibiotics for now. We will discharge patient with prophylaxis. PT seen today, patient likely can be discharged tomorrow Reviewed: Care Plan, H&P, Labs, Medications, Previous Orders, Radiology Changes from previous H/P or p: No Changes General: Per HPI Objective Vitals Vital Signs Date Time Temp Pulse Resp B/P (MAP) Pulse Ox O2 Delivery O2 Flow Rate FiO2 01/19/24 12:35 98.6 82 16 104/65 (78) 100 98.6 01/19/24 08:00 Room Air* 0 21 Intake/Output Intake and Output 01/19/24 07:00 Intake Total 1575 ml Output Total 5435 ml Balance -3860 ml Intake Oral 1375 ml IV Total 200 ml Output Urine Total 5435 ml # Bowel Movements 3 Exam Alert, oriented x3 Jaundice Morbidly obese PERRLA No JVD Clear breath sounds S1-S2 regular rate and rhythm , distant Abdomen soft nontender, no hepatomegaly Equal strength bilaterally on upper and lower extremities Weeping edema Ulcer Medications Current Medications Medications Dose Ordered Sig/Phuong Route Start Time Stop Time Status Last Admin Dose Admin Thiamine HCl 100 mg DAILY PO 01/13/24 16:15 01/19/24 09:10 100 MG Folic Acid 1 mg DAILY PO 01/13/24 16:15 01/19/24 09:10 1 MG Sodium Chloride 10 ml Q8HR IV 01/13/24 22:00 01/19/24 13:11 10 ML Docusate Sodium 100 mg BIDPRN PRN PO 01/13/24 16:15 Ondansetron HCl 4 mg Q4HP PRN IV 01/13/24 16:15 Patient Own Medication 30 ml TID PO 01/13/24 22:00 UNV Patient Own Medication 300 mg BID PO 01/13/24 22:00 UNV Lactulose 30 ml TID PO 01/13/24 22:00 01/19/24 13:11 30 ML Ursodiol 300 mg BID PO 01/13/24 22:00 01/19/24 09:10 300 MG Pantoprazole Sodium 40 mg DAILY IV 01/13/24 16:30 01/19/24 09:10 40 MG Octreotide Acetate 100 mcg TID SUBCUT 01/14/24 22:00 01/19/24 13:11 100 MCG Midodrine 10 mg TID@0600,1200,1800 PO 01/14/24 18:00 01/19/24 11:39 10 MG Hydromorphone HCl 0.25 mg Q4HP PRN IV 01/14/24 15:15 Prednisone 20 mg BID PO 01/14/24 22:00 01/19/24 09:10 20 MG Furosemide 20 mg QID IV 01/16/24 18:00 01/19/24 11:39 20 MG Spironolactone 25 mg DAILY PO 01/17/24 10:00 01/19/24 09:10 25 MG Dextrose 50 ml UD PRN IV 01/17/24 16:15 Piperacillin Sod/ Tazobactam Sod 100 ml @ 100 mls/hr Q8H IV 01/18/24 12:00 01/19/24 11:39 100 MLS/HR Insulin Glargine 15 units HS SC 01/18/24 22:00 01/18/24 21:30 15 UNITS Diagnostic Test (Pha) 1 strip ACHS 01/18/24 17:00 01/19/24 11:38 1 STRIP Insulin Human Regular ACHS SC 01/18/24 17:00 01/19/24 11:40 12 UNITS Laboratory Results Laboratory Tests 01/18/24 05:22 Urinalysis Test 01/18/24 10:47 Urine Creatinine 53.38 mg/dL (30.0-125.0) Urine Sodium 37 mmol/L (40-220) L Microbiology Microbiology Date/Time Source Procedure Growth Status 01/13/24 22:52 Nose MRSA Screen - Final Complete 01/13/24 16:53 Blood Blood Culture - Final NO GROWTH AFTER 5 DAYS OF INCUBATION. Complete Labs and/or images reviewed: Labs reviewed by me, Image(s) reviewed by me Assessment/Plan Assessment/Plan Jaundice acute liver failure? cirrhosis Alcohol use Macrocytic anemia Leukocytosis Thrombocytopenia Lactic acidosis HAGMA Low albumin Severely elevated bilirubin Transaminitis Elevated INR abdominal pain, cannot r/o SBP SHAYNA likely hepatorenal consult palliative maddrey's 72.9 MELD 34prednisone 20mg BID midodrine 10mg TID ursodiol albumin GI consult appreciated thiamine and folate consult radiology to tap, unable to find pocket cover with zosyn for sepsis and presumed SBP strict I&O daily weight insulin Physical therapy Consult keep K 4 Ph 3 Mg 2 advance diet as tolerated DVT ppx hold for thrombocytopenia condition critical prognosis poor Medical decision maker Treva Daley [phone] Code status full code Goals of care curative MCC mechanical and ventilator support: No Plan discussed with: Patient My Orders Orders - BRYANT SIMPSON MD Procedure Category Date Status Time Insulin Lantus PHA 01/18/24 In Process (Glargine) (Lantus) 22:00 Ac Mild Insulin Scale HAO 01/18/24 In Process (Not Rx) 15:27 Glucose Blood PHA 01/18/24 In Process (Accu-Chek Comfort 17:00 Insulin R (Human) PHA 01/18/24 In Process (Insulin R) 17:00 Pt Request For Service PT 01/19/24 Logged 08:32 * [employer] Building Supervisor CONS 01/19/24 Transmitted Consult Maintain Fluid HAO 01/19/24 In Process Restrictions 10:57 Communication Order ORDERS 01/19/24 Transmitted 10:57 Date of Service: Jan 19, 2024 Billing Provider: BRYANT SIMPSON MD Common Visit Codes: [id number] INP/OBS CARE(HIGH) BRYANT SIMPSON MD Jan 19, 2024 15:32
[2024-01-19 16:40] VITALS: BP 109/64; PULSE 66; RESP 18; TEMP 98.6; O2SAT 100
--- NOTE | 2024-01-19 19:03 | DVHPN2 ---
Progress Note Date Seen: Jan 19, 2024 Medical Necessity Reason Pt with a Central, PICC or Fol: No Subjective Patient reports: No new complaints, Feels better Review of Systems: HEENT:Normal, CVS:Normal, RESPIRATORY:Normal, GI:Normal, :Normal, MSK:Normal, NEURO:Normal Objective vital signs Vital Sign Date Time Temp Pulse Resp B/P (MAP) Pulse Ox O2 Delivery O2 Flow Rate FiO2 01/19/24 17:13 106/66 01/19/24 16:40 98.6 66 18 100 98.6 01/19/24 08:00 Room Air* 0 21 Total Intake and Output 01/18/24 01/18/24 01/19/24 15:00 23:00 07:00 Intake Total 710 ml 865 ml Output Total 1500 ml 2075 ml 1860 ml Balance -1500 ml -1365 ml -995 ml medications Current Medications Medications Dose Ordered Sig/Phuong Route Start Time Stop Time Status Last Admin Dose Admin Thiamine HCl 100 mg DAILY PO 01/13/24 16:15 01/19/24 09:10 100 MG Folic Acid 1 mg DAILY PO 01/13/24 16:15 01/19/24 09:10 1 MG Sodium Chloride 10 ml Q8HR IV 01/13/24 22:00 01/19/24 13:11 10 ML Docusate Sodium 100 mg BIDPRN PRN PO 01/13/24 16:15 Ondansetron HCl 4 mg Q4HP PRN IV 01/13/24 16:15 Patient Own Medication 30 ml TID PO 01/13/24 22:00 UNV Patient Own Medication 300 mg BID PO 01/13/24 22:00 UNV Lactulose 30 ml TID PO 01/13/24 22:00 01/19/24 13:11 30 ML Ursodiol 300 mg BID PO 01/13/24 22:00 01/19/24 09:10 300 MG Pantoprazole Sodium 40 mg DAILY IV 01/13/24 16:30 01/19/24 09:10 40 MG Octreotide Acetate 100 mcg TID SUBCUT 01/14/24 22:00 01/19/24 13:11 100 MCG Midodrine 10 mg TID@0600,1200,1800 PO 01/14/24 18:00 01/19/24 17:13 10 MG Hydromorphone HCl 0.25 mg Q4HP PRN IV 01/14/24 15:15 Prednisone 20 mg BID PO 01/14/24 22:00 01/19/24 09:10 20 MG Furosemide 20 mg QID IV 01/16/24 18:00 01/19/24 17:13 20 MG Spironolactone 25 mg DAILY PO 01/17/24 10:00 01/19/24 09:10 25 MG Dextrose 50 ml UD PRN IV 01/17/24 16:15 Piperacillin Sod/ Tazobactam Sod 100 ml @ 100 mls/hr Q8H IV 01/18/24 12:00 01/19/24 11:39 100 MLS/HR Insulin Glargine 15 units HS SC 01/18/24 22:00 01/18/24 21:30 15 UNITS Diagnostic Test (Pha) 1 strip ACHS 01/18/24 17:00 01/19/24 17:13 1 STRIP Insulin Human Regular ACHS SC 01/18/24 17:00 01/19/24 17:14 12 UNITS Examination: GENERAL:Normal, HEENT:Abnormal, NECK:Normal, LUNGS:Normal, CVS:Normal, ABDOMEN:Abnormal, MSK:Normal, SKIN:Abnormal (jaundice), NEURO:Normal, :Normal laboratory and microbiology Laboratory Tests 01/18/24 05:22 Test 01/18/24 05:22 Range/Units Serum Glucose 283 #H 74-106 mg/dL Microbiology Date/Time Source Procedure Growth Status 01/13/24 22:52 Nose MRSA Screen - Final Complete 01/13/24 16:53 Blood Blood Culture - Final NO GROWTH AFTER 5 DAYS OF INCUBATION. 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 Monitor PO intake to meet 75% of his needs Expected Outcomes/Goals: Gradual weight loss, improved nutrition related lab values MIKEL GONZALEZ MD Jan 19, 2024 19:03
--- NOTE | 2024-01-19 19:26 | DVHPN2 ---
Progress Note - Dictate Date Seen: Jan 19, 2024 Medical Necessity Reason Pt with a Central, PICC or Fol: No Subjective No new complaints Regular diet change to carb controlled diet Liver enzymes were trending down No new labs today vital signs Vital Sign Date Time Temp Pulse Resp B/P (MAP) Pulse Ox O2 Delivery O2 Flow Rate FiO2 01/19/24 17:13 106/66 01/19/24 16:40 98.6 66 18 100 98.6 01/19/24 08:00 Room Air* 0 21 Total Intake and Output 01/18/24 01/18/24 01/19/24 15:00 23:00 07:00 Intake Total 710 ml 865 ml Output Total 1500 ml 2075 ml 1860 ml Balance -1500 ml -1365 ml -995 ml medications Current Medications Medications Dose Ordered Sig/Phuong Route Start Time Stop Time Status Last Admin Dose Admin Thiamine HCl 100 mg DAILY PO 01/13/24 16:15 01/19/24 09:10 100 MG Folic Acid 1 mg DAILY PO 01/13/24 16:15 01/19/24 09:10 1 MG Sodium Chloride 10 ml Q8HR IV 01/13/24 22:00 01/19/24 13:11 10 ML Docusate Sodium 100 mg BIDPRN PRN PO 01/13/24 16:15 Ondansetron HCl 4 mg Q4HP PRN IV 01/13/24 16:15 Patient Own Medication 30 ml TID PO 01/13/24 22:00 UNV Patient Own Medication 300 mg BID PO 01/13/24 22:00 UNV Lactulose 30 ml TID PO 01/13/24 22:00 01/19/24 13:11 30 ML Ursodiol 300 mg BID PO 01/13/24 22:00 01/19/24 09:10 300 MG Pantoprazole Sodium 40 mg DAILY IV 01/13/24 16:30 01/19/24 09:10 40 MG Octreotide Acetate 100 mcg TID SUBCUT 01/14/24 22:00 01/19/24 13:11 100 MCG Midodrine 10 mg TID@0600,1200,1800 PO 01/14/24 18:00 01/19/24 17:13 10 MG Hydromorphone HCl 0.25 mg Q4HP PRN IV 01/14/24 15:15 Prednisone 20 mg BID PO 01/14/24 22:00 01/19/24 09:10 20 MG Furosemide 20 mg QID IV 01/16/24 18:00 01/19/24 17:13 20 MG Spironolactone 25 mg DAILY PO 01/17/24 10:00 01/19/24 09:10 25 MG Dextrose 50 ml UD PRN IV 01/17/24 16:15 Piperacillin Sod/ Tazobactam Sod 100 ml @ 100 mls/hr Q8H IV 01/18/24 12:00 01/19/24 11:39 100 MLS/HR Insulin Glargine 15 units HS SC 01/18/24 22:00 01/18/24 21:30 15 UNITS Diagnostic Test (Pha) 1 strip ACHS 01/18/24 17:00 01/19/24 17:13 1 STRIP Insulin Human Regular ACHS SC 01/18/24 17:00 01/19/24 17:14 12 UNITS objective General examination- morbidly obese male jaundiced lying not in any respiratory distress HEENT- icterus, no acute nasal discharge Cardiovascular- S1-S2 audible, rate and rhythm regular, no murmur Respiratory- CTAB, no wheeze or rhonchi Gastrointestinal- excoriation on abdomen, fluid leaking through the skin on the left lower abdominal side, no abdominal tenderness, lower abdominal tenderness, bowel sound+. Musculoskeletal-no acute joint swelling or tenderness or redness Lower extremity- dry callus on the bottom of the feet, edema bilateral, swelling, this coloration from possibly venous stasis Neurological- cranial nerves intact, no acute dysarthria or dysphagia Psychiatry- denies depression or SI or HI Skin- : + jaundice laboratory and microbiology Laboratory Tests 01/18/24 05:22 Test 01/18/24 05:22 Range/Units Serum Glucose 283 #H 74-106 mg/dL Problems(with codes): (1) Alcoholic steatohepatitis (2) Elevated liver enzymes (3) Generalized weakness (4) Hepatic encephalopathy (5) Sepsis (6) Cirrhosis (7) Morbid obesity (8) Edema (9) Jaundice (10) Hyperbilirubinemia Prognosis Plan Repeat labs in a.m. Continue ursodiol 300 mg p.o. twice a day Continue oral prednisone Upon discharge patient will need a Medrol Dosepak Continue IV albumin and diuresis and low-salt diet Prognosis remains guarded Dietary Evaluation Review Comments: Advance diet to 2 gNa CCHO-75, Renal Specific-80g protein, 3K, low phos diet when medically feasible. Monitor PO intake to meet 75% of his needs Expected Outcomes/Goals: Gradual weight loss, improved nutrition related lab values Plan discussed with: Patient RYAN BAUMAN MD Jan 19, 2024 19:26
[2024-01-19 20:32] LABS: INR 1.9 (0.9-1.15); Prothrombin Time 19.2 sec (9.3-11.8)
[2024-01-19 21:00] VITALS: BP 113/61; PULSE 70; RESP 16; TEMP 97.5; O2SAT 90
[2024-01-20] VITALS (7 sets, daily range): BP systolic 108–127; BP diastolic 61–73; PULSE 51–71; RESP 16–18; TEMP 97.5–98.4; O2SAT 99–100
[2024-01-20 09:02] LABS: Basophils # (auto) 0.2 10 ^3/uL (0-0.2); Basophils % (auto) 1.1 % (0.0-2.0); Eosinophils # (auto) 0 10 ^3/uL (0-0.8); Eosinophils % (auto) 0.2 % (0.0-7.0)
[2024-01-20 09:06] LABS: Hematocrit 32.4 % (41.0-53.0); Hemoglobin 11.2 g/dL (13.5-17.5); Lymphocytes # (auto) 0.7 10 ^3/uL (0.4-5.4); Lymphocytes % (auto) 3.9 % (10.0-50.0); Mean Corpuscular Hemoglobin 38.7 pg (28.0-32.0); Mean Corpuscular Hgb Conc. 34.6 g/dL (32.0-36.0); Mean Corpuscular Volume 111.8 fL (80.0-100.0); Monocytes % (auto) 5.3 % (0.0-12.0); Neutrophils % (auto) 89.5 % (37.0-80.0); Nucleated Red Blood Cells % 0.1 %; Platelet Count (auto) 80 10^3/uL (140-450); Red Cell Distribution Width 16.1 % (11.8-14.3); White Blood Cell 17.9 10^3/uL (4.4-10.8)
[2024-01-20 09:25] LABS: Albumin 2.9 g/dL (3.2-4.8); Alkaline Phosphatase 120 U/L (46-116); Anion Gap 10 (5-15); Calcium 8.2 mg/dL (8.7-10.4); Carbon Dioxide 25 mmol/L (20-31); Chloride 102 mmol/L (98-107); Glucose 351 mg/dL (74-106); Potassium 3.4 mmol/L (3.5-5.1); Sodium 137 mmol/L (136-145)
[2024-01-20 09:33] LABS: Alanine Aminotransferase 197 U/L (7-40); Aspartate Aminotransferase 180 U/L (13-40); BUN/Creatinine Ratio 30.4 (10.0-20.0); Blood Urea Nitrogen 56 mg/dL (9-23); Total Protein 6.4 g/dL (5.7-8.2)
[2024-01-20 10:19] LABS: Macrocytosis Moderate; Target Cell FEW
[2024-01-20 10:20] LABS: Platelet Estimate Decreased
[2024-01-20] MEDS ORDERED: MID10T PO (13:37)
[2024-01-20] MEDS ORDERED: FOLI-119 PO (13:37)
[2024-01-20] MEDS ORDERED: SPIR25TA PO (13:37)
[2024-01-20] MEDS ORDERED: URSO300C2 PO (13:37)
[2024-01-20] MEDS ORDERED: FURO40TA4 PO (13:37)
[2024-01-20] MEDS ORDERED: LACT10SO3 PO (13:37)
[2024-01-20] MEDS ORDERED: THIA100T10 PO (13:37)
--- NOTE | 2024-01-20 14:10 | MEDREC ---
[facility] Intervention Section I [facility] Intervention: Review courses of therapy (PATIENT HAS RECEIVED ZOSYN SINCE 01/12. PLATELET HAS BEEN DROPPED FROM 187 (01/12) TO 80 (01/19). ZOSYN CAN CAUSE DRUG-INDUCED IMMUNE THROMBOCYTOPENIA WHICH CAN ADD TO PATIENT'S LIVER CIRRHOSIS. PLEASE CONSIDER SWITCHING ANTIBIOTICS IF INFECTION IS STILL A CONCERN ) LUNA PATEL Jan 20, 2024 14:10
--- NOTE | 2024-01-20 14:22 | DVHPN2 ---
Progress Note - Dictate Date Seen: Jan 20, 2024 Medical Necessity Reason Pt with a Central, PICC or Fol: No Subjective No new complaints Regular diet change to carb controlled diet Patient is awake alert in no acute distress Patient states he is ambulating by himself and also with physical therapy Repeat labs show persistent elevation in liver enzymes which are trending down slowly vital signs Vital Sign Date Time Temp Pulse Resp B/P (MAP) Pulse Ox O2 Delivery O2 Flow Rate FiO2 01/20/24 13:13 98.4 51 16 127/73 (91) 99 98.4 01/20/24 08:00 Room Air* 0 21 Total Intake and Output 01/19/24 01/19/24 01/20/24 15:00 23:00 07:00 Intake Total 480 ml 1000 ml Output Total 2000 ml 1925 ml Balance -1520 ml -925 ml medications Current Medications Medications Dose Ordered Sig/Phuong Route Start Time Stop Time Status Last Admin Dose Admin Thiamine HCl 100 mg DAILY PO 01/13/24 16:15 01/20/24 09:16 100 MG Folic Acid 1 mg DAILY PO 01/13/24 16:15 01/20/24 09:13 1 MG Sodium Chloride 10 ml Q8HR IV 01/13/24 22:00 01/20/24 13:23 10 ML Docusate Sodium 100 mg BIDPRN PRN PO 01/13/24 16:15 Ondansetron HCl 4 mg Q4HP PRN IV 01/13/24 16:15 Patient Own Medication 30 ml TID PO 01/13/24 22:00 UNV Patient Own Medication 300 mg BID PO 01/13/24 22:00 UNV Lactulose 30 ml TID PO 01/13/24 22:00 01/20/24 13:22 30 ML Ursodiol 300 mg BID PO 01/13/24 22:00 01/20/24 09:42 300 MG Pantoprazole Sodium 40 mg DAILY IV 01/13/24 16:30 01/20/24 09:14 40 MG Octreotide Acetate 100 mcg TID SUBCUT 01/14/24 22:00 01/20/24 13:22 100 MCG Midodrine 10 mg TID@0600,1200,1800 PO 01/14/24 18:00 01/20/24 12:07 10 MG Hydromorphone HCl 0.25 mg Q4HP PRN IV 01/14/24 15:15 Prednisone 20 mg BID PO 01/14/24 22:00 01/20/24 09:14 20 MG Furosemide 20 mg QID IV 01/16/24 18:00 01/20/24 12:06 20 MG Spironolactone 25 mg DAILY PO 01/17/24 10:00 01/20/24 09:13 25 MG Dextrose 50 ml UD PRN IV 01/17/24 16:15 Piperacillin Sod/ Tazobactam Sod 100 ml @ 100 mls/hr Q8H IV 01/18/24 12:00 01/20/24 12:07 100 MLS/HR Insulin Glargine 15 units HS SC 01/18/24 22:00 01/19/24 21:30 15 UNITS Diagnostic Test (Pha) 1 strip ACHS 01/18/24 17:00 01/20/24 12:06 1 STRIP Insulin Human Regular ACHS SC 01/18/24 17:00 01/20/24 12:08 15 UNITS objective General examination- morbidly obese male jaundiced lying not in any respiratory distress HEENT- icterus, no acute nasal discharge Cardiovascular- S1-S2 audible, rate and rhythm regular, no murmur Respiratory- CTAB, no wheeze or rhonchi Gastrointestinal- excoriation on abdomen, fluid leaking through the skin on the left lower abdominal side, no abdominal tenderness, lower abdominal tenderness, bowel sound+. Musculoskeletal-no acute joint swelling or tenderness or redness Lower extremity- dry callus on the bottom of the feet, edema bilateral, swelling, this coloration from possibly venous stasis Neurological- cranial nerves intact, no acute dysarthria or dysphagia Psychiatry- denies depression or SI or HI Skin- : + jaundice laboratory and microbiology Laboratory Tests 01/20/24 08:42 Test 01/20/24 08:42 Range/Units Serum Glucose 351 H 74-106 mg/dL Problems(with codes): (1) Hyperbilirubinemia (2) Alcoholic steatohepatitis (3) Elevated liver enzymes (4) Generalized weakness (5) Hepatic encephalopathy (6) Cirrhosis (7) Morbid obesity Prognosis Plan Advance diet as tolerated Continue ursodiol 300 mg p.o. twice a day Continue prednisone 40 mg p.o. daily followed by a Medrol Dosepak taper Discharge planning in the next 24-48 hours Patient was counseled about not drinking alcohol Dietary Evaluation Review Comments: Advance diet to 2 gNa CCHO-75, Renal Specific-80g protein, 3K, low phos diet when medically feasible. Monitor PO intake to meet 75% of his needs Expected Outcomes/Goals: Gradual weight loss, improved nutrition related lab values Plan discussed with: Patient RYAN BAUMAN MD Jan 20, 2024 14:22
[2024-01-20] MEDS ORDERED: [UNRECOGNIZED DRUG - CODE] XX (15:39)
--- NOTE | 2024-01-20 16:56 | DVHPN2 ---
Progress Note Date Seen: Jan 20, 2024 Medical Necessity Reason Pt with a Central, PICC or Fol: No Subjective Patient reports: No new complaints Review of Systems: HEENT:Abnormal, CVS:Normal, RESPIRATORY:Normal, GI:Abnormal, :Normal, MSK:Abnormal, NEURO:Normal Objective vital signs Vital Sign Date Time Temp Pulse Resp B/P (MAP) Pulse Ox O2 Delivery O2 Flow Rate FiO2 01/20/24 16:49 98.0 69 18 116/61 (79) 100 98.0 01/20/24 08:00 Room Air* 0 21 Total Intake and Output 01/19/24 01/19/24 01/20/24 15:00 23:00 07:00 Intake Total 480 ml 1000 ml Output Total 2000 ml 1925 ml Balance -1520 ml -925 ml medications Current Medications Medications Dose Ordered Sig/Phuong Route Start Time Stop Time Status Last Admin Dose Admin Thiamine HCl 100 mg DAILY PO 01/13/24 16:15 01/20/24 09:16 100 MG Folic Acid 1 mg DAILY PO 01/13/24 16:15 01/20/24 09:13 1 MG Sodium Chloride 10 ml Q8HR IV 01/13/24 22:00 01/20/24 13:23 10 ML Docusate Sodium 100 mg BIDPRN PRN PO 01/13/24 16:15 Ondansetron HCl 4 mg Q4HP PRN IV 01/13/24 16:15 Patient Own Medication 30 ml TID PO 01/13/24 22:00 UNV Patient Own Medication 300 mg BID PO 01/13/24 22:00 UNV Lactulose 30 ml TID PO 01/13/24 22:00 01/20/24 13:22 30 ML Ursodiol 300 mg BID PO 01/13/24 22:00 01/20/24 09:42 300 MG Pantoprazole Sodium 40 mg DAILY IV 01/13/24 16:30 01/20/24 09:14 40 MG Octreotide Acetate 100 mcg TID SUBCUT 01/14/24 22:00 01/20/24 13:22 100 MCG Midodrine 10 mg TID@0600,1200,1800 PO 01/14/24 18:00 01/20/24 12:07 10 MG Hydromorphone HCl 0.25 mg Q4HP PRN IV 01/14/24 15:15 Prednisone 20 mg BID PO 01/14/24 22:00 01/20/24 09:14 20 MG Furosemide 20 mg QID IV 01/16/24 18:00 01/20/24 12:06 20 MG Spironolactone 25 mg DAILY PO 01/17/24 10:00 01/20/24 09:13 25 MG Dextrose 50 ml UD PRN IV 01/17/24 16:15 Piperacillin Sod/ Tazobactam Sod 100 ml @ 100 mls/hr Q8H IV 01/18/24 12:00 01/20/24 12:07 100 MLS/HR Insulin Glargine 15 units HS SC 01/18/24 22:00 01/19/24 21:30 15 UNITS Diagnostic Test (Pha) 1 strip ACHS 01/18/24 17:00 01/20/24 12:06 1 STRIP Insulin Human Regular ACHS SC 01/18/24 17:00 01/20/24 12:08 15 UNITS Examination: GENERAL:Normal, HEENT:Abnormal, NECK:Normal, LUNGS:Normal, CVS:Normal, ABDOMEN:Abnormal, MSK:Normal, SKIN:Normal, SKIN:Abnormal, NEURO:Normal, :Normal laboratory and microbiology Laboratory Tests 01/20/24 08:42 Test 01/20/24 08:42 Range/Units Serum Glucose 351 H 74-106 mg/dL Microbiology Date/Time Source Procedure Growth Status 01/13/24 22:52 Nose MRSA Screen - Final Complete 01/13/24 16:53 Blood Blood Culture - Final NO GROWTH AFTER 5 DAYS OF INCUBATION. 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 Monitor PO intake to meet 75% of his needs Expected Outcomes/Goals: Gradual weight loss, improved nutrition related lab values MIKEL GONZALEZ MD Jan 20, 2024 16:56
[2024-01-20] MEDS: INSULIN LANTUS (GLARGINE) 1 /0.01ml (100units/ml) SC SCH (22:25)
[2024-01-21 01:00] VITALS: BP 108/65; PULSE 69; RESP 16; TEMP 97.5; O2SAT 100
[2024-01-21 05:00] VITALS: BP 111/64; PULSE 68; RESP 16; TEMP 97.6; O2SAT 100
[2024-01-21 08:00] VITALS: PULSE 68; RESP 16; O2SAT 100
[2024-01-21] MEDS ORDERED: INSLANTI SC (08:25)
[2024-01-21] MEDS ORDERED: INSU100I4 SC (08:25)
[2024-01-21 09:00] VITALS: BP 105/64; PULSE 68; RESP 18; TEMP 96.8; O2SAT 100
--- NOTE | 2024-01-21 09:00 | DVHPN2 ---
Progress Note - Dictate Date Seen: Jan 21, 2024 Medical Necessity Reason Pt with a Central, PICC or Fol: No Subjective No new complaints Regular diet change to carb controlled diet Patient is awake alert in no acute distress Patient states he is ambulating by himself and also with physical therapy Repeat labs show persistent elevation in liver enzymes which are trending down slowly vital signs Vital Sign Date Time Temp Pulse Resp B/P (MAP) Pulse Ox O2 Delivery O2 Flow Rate FiO2 01/21/24 06:30 110/62 01/21/24 05:00 97.6 68 16 100 97.6 01/20/24 20:00 Room Air* 0 21 Total Intake and Output 01/20/24 01/20/24 01/21/24 15:00 23:00 07:00 Intake Total 100 ml 940 ml 550 ml Output Total 2590 ml 1950 ml Balance 100 ml -1650 ml -1400 ml medications Current Medications Medications Dose Ordered Sig/Phuong Route Start Time Stop Time Status Last Admin Dose Admin Thiamine HCl 100 mg DAILY PO 01/13/24 16:15 01/20/24 09:16 100 MG Folic Acid 1 mg DAILY PO 01/13/24 16:15 01/20/24 09:13 1 MG Sodium Chloride 10 ml Q8HR IV 01/13/24 22:00 01/21/24 06:29 10 ML Docusate Sodium 100 mg BIDPRN PRN PO 01/13/24 16:15 Ondansetron HCl 4 mg Q4HP PRN IV 01/13/24 16:15 Patient Own Medication 30 ml TID PO 01/13/24 22:00 UNV Patient Own Medication 300 mg BID PO 01/13/24 22:00 UNV Lactulose 30 ml TID PO 01/13/24 22:00 01/21/24 06:29 30 ML Ursodiol 300 mg BID PO 01/13/24 22:00 01/20/24 22:22 300 MG Pantoprazole Sodium 40 mg DAILY IV 01/13/24 16:30 01/20/24 09:14 40 MG Octreotide Acetate 100 mcg TID SUBCUT 01/14/24 22:00 01/21/24 06:29 100 MCG Midodrine 10 mg TID@0600,1200,1800 PO 01/14/24 18:00 01/21/24 06:28 10 MG Hydromorphone HCl 0.25 mg Q4HP PRN IV 01/14/24 15:15 Prednisone 20 mg BID PO 01/14/24 22:00 01/20/24 22:13 20 MG Furosemide 20 mg QID IV 01/16/24 18:00 01/21/24 06:30 20 MG Spironolactone 25 mg DAILY PO 01/17/24 10:00 01/20/24 09:13 25 MG Dextrose 50 ml UD PRN IV 01/17/24 16:15 Diagnostic Test (Pha) 1 strip ACHS 01/18/24 17:00 01/21/24 06:18 1 STRIP Insulin Human Regular ACHS SC 01/18/24 17:00 01/21/24 06:18 236 UNITS Insulin Glargine 27 units HS SC 01/20/24 22:00 01/20/24 22:25 27 UNITS objective General examination- morbidly obese male jaundiced lying not in any respiratory distress HEENT- icterus, no acute nasal discharge Cardiovascular- S1-S2 audible, rate and rhythm regular, no murmur Respiratory- CTAB, no wheeze or rhonchi Gastrointestinal- excoriation on abdomen, fluid leaking through the skin on the left lower abdominal side, no abdominal tenderness, lower abdominal tenderness, bowel sound+. Musculoskeletal-no acute joint swelling or tenderness or redness Lower extremity- dry callus on the bottom of the feet, edema bilateral, swelling, this coloration from possibly venous stasis Neurological- cranial nerves intact, no acute dysarthria or dysphagia Psychiatry- denies depression or SI or HI Skin- : + jaundice laboratory and microbiology Laboratory Tests 01/20/24 08:42 Test 01/20/24 08:42 Range/Units Serum Glucose 351 H 74-106 mg/dL Problems(with codes): (1) Jaundice (2) Renal failure (3) Liver cirrhosis, alcoholic (4) Morbid obesity (5) Cirrhosis (6) Hepatic encephalopathy (7) Generalized weakness (8) Elevated liver enzymes (9) Alcoholic steatohepatitis (10) Hyperbilirubinemia Prognosis Plan Advance diet as tolerated Continue ursodiol 300 mg p.o. twice a day Continue prednisone 40 mg p.o. daily followed by a Medrol Dosepak taper Discharge planning in the next 24-48 hours Patient was counseled about not drinking alcohol Dietary Evaluation Review Comments: Advance diet to 2 gNa CCHO-75, Renal Specific-80g protein, 3K, low phos diet when medically feasible. Monitor PO intake to meet 75% of his needs Expected Outcomes/Goals: Gradual weight loss, improved nutrition related lab values Plan discussed with: Patient RYAN BAUMAN MD Jan 21, 2024 09:00
[2024-01-21 11:31] VITALS: BP 105/64; PULSE 68; RESP 16; TEMP 96.8; O2SAT 100
[2024-01-21] MEDS ORDERED: PRED1PAK9 PO (20:03)
--- NOTE | 2024-01-21 20:08 | DVHDS2 ---
Discharge Summary Date of Admission Jan 13, 2024 at 16:05 Date of Discharge: Jan 21, 2024 Labs/Diagnostic Data: Laboratory Results Test 01/20/24 21:10 01/20/24 08:42 01/19/24 20:05 01/18/24 10:47 POC Glucose 310 mg/dl (70-106) White Blood Count 17.9 10^3/uL (4.4-10.8) Red Blood Count 2.90 10^6/uL (4.5-5.90) Hemoglobin 11.2 g/dL (13.5-17.5) Hematocrit 32.4 % (41.0-53.0) Mean Corpuscular Volume 111.8 fL (80.0-100.0) Mean Corpuscular Hemoglobin 38.7 pg (28.0-32.0) Mean Corpuscular Hemoglobin Concent 34.6 g/dL (32.0-36.0) Red Cell Distribution Width 16.1 % (11.8-14.3) Platelet Count 80 10^3/uL (140-450) Mean Platelet Volume 10.2 fL (6.9-10.8) Neutrophils (%) (Auto) 89.5 % (37.0-80.0) Lymphocytes (%) (Auto) 3.9 % (10.0-50.0) Monocytes (%) (Auto) 5.3 % (0.0-12.0) Eosinophils (%) (Auto) 0.2 % (0.0-7.0) Basophils (%) (Auto) 1.1 % (0.0-2.0) Neutrophils # (Auto) 16.0 10 ^3/uL (1.6-8.6) Lymphocytes # (Auto) 0.7 10 ^3/uL (0.4-5.4) Monocytes # (Auto) 1.0 10 ^3/uL (0-1.3) Eosinophils # (Auto) 0 10 ^3/uL (0-0.8) Basophils # (Auto) 0.2 10 ^3/uL (0-0.2) Nucleated Red Blood Cells 0.1 % Platelet Estimate Decreased Macrocytosis Moderate Target Cells Few Sodium Level 137 mmol/L (136-145) Potassium Level 3.4 mmol/L (3.5-5.1) Chloride Level 102 mmol/L (98-107) Carbon Dioxide Level 25 mmol/L (20-31) Anion Gap 10 (5-15) Blood Urea Nitrogen 56 mg/dL (9-23) Creatinine 1.84 mg/dL (0.700-1.30) Glomerular Filtration Rate Calc 48 mL/min (>90) BUN/Creatinine Ratio 30.4 (10.0-20.0) Serum Glucose 351 mg/dL (74-106) Calcium Level 8.2 mg/dL (8.7-10.4) Total Bilirubin 22.0 mg/dL (0.2-1.0) Aspartate Amino Transferase (AST) 180 U/L (13-40) Alanine Aminotransferase (ALT) 197 U/L (7-40) Alkaline Phosphatase 120 U/L (46-116) Total Protein 6.4 g/dL (5.7-8.2) Albumin 2.9 g/dL (3.2-4.8) Tumor Marker Alpha Fetoprotein 17.3 ng/mL (0.0-6.9) Prothrombin Time 19.2 sec (9.3-11.8) Prothrombin Time INR 1.90 (0.9-1.15) Urine Creatinine 53.38 mg/dL (30.0-125.0) Urine Sodium 37 mmol/L (40-220) Test 01/18/24 05:22 01/15/24 08:29 01/13/24 16:53 01/13/24 13:47 Magnesium Level 2.0 mg/dL (1.6-2.6) Lactic Acid Level 1.7 mmol/L (0.4-2.0) Phosphorus Level 4.4 mg/dL (2.4-5.1) Ammonia < 10 umol/L (11-32) Differential Total Cells Counted 100.0 (100) Neutrophils % (Manual) 90 (37.0-80.0) Band Neutrophils % (Manual) 0 Lymphocytes % (Manual) 3 (10.0-50.0) Monocytes % (Manual) 6 (0-12) Eosinophils % (Manual) 1 (0-7) Basophils % (Manual) 0 (0.0-2.0) Metamyelocytes % (manual) 0 Myelocytes % (Manual) 0 Promyelocytes % (Manual) 0 Blast Cells % (Manual) 0 Reactive Lymphocytes 0 B-Type Natriuretic Peptide 225.46 pg/mL (0-100) Other Laboratory Tests 01/20/24 08:42 Brief Hx & Hospital Course: 38-year-old male readmitted with acute liver failure on the cirrhotic patient with severe hyperbilirubinemia. Started on prednisone, low blood pressure initiated antibiotic and midodrine for presumed SBP and cirrhotic related hypotension. Improving after a couple of days, patient had PT and was able to walk. Patient is discharged with follow up to GI, nephro, primary care Condition at Discharge: Good (Down calorie on SCD dementia received in) Final Diagnosis/Problems List JAUNDICE. CIRRHOSIS. MORBID OBESITY. DECONDITIONING. PRESUMED SBP. Discharge Disposition: Home Discharge Instruct/Medications Diet: See Comment Diet comment: Hepatic diet Activity: No Restrictions, As Tolerated Follow Up/Referral: Follow up with discharge clinic in 1 week Follow up with primary care follow up with GI follow up with nephrology Medications: midodrine 10mg TID lasix 40mg daily aldactone 25mg daily to be titrated up as tolerated by dc clinic 37 Discharge Statement: "Patient was advised to return to the ER or call 911 if any headaches, dizziness, shortness of breath, chest pain, abdominal pain, bleeding, fevers, or worsening of medical condition. Patient was counseled about treatment plan, medications, possible side effects, patientverbalized understanding. All questions were answered to the best of my ability. This discharge took greater then 30 minutes in planning, reviewing documentation, counseling the patient, and discussing with other team members." ASSESSMENT ASSESSMENT Assessment Jaundice cirrhosis 2/2 alcoholic liver disease Alcohol use Macrocytic anemia Leukocytosis, improving Thrombocytopenia from a cirrhosis Lactic acidosis HAGMA Low albumin Severely elevated bilirubin Transaminitis Elevated INR abdominal pain, cannot r/o SBP Sepsis SHAYNA from hepatorenal Date of Service: Jan 21, 2024 Billing Provider: BRYANT SIMPSON MD Common Visit Codes: 96098-SDA/OBS DISCH DAY >30min BRYANT SIMPSON MD Jan 21, 2024 20:08
== END 2024-01-21 13:29 | disposition home health service (06) | DRG 871 ==
LOC: ER 13:09 → OVERFLOW 16:05 → WEST WING 18:32
PROVIDERS: ADMIT Student in an Organized Health Care Education/Training Program; ATTEND Student in an Organized Health Care Education/Training Program
DX: A41.9 Sepsis, unspecified organism (principal); K76.7 Hepatorenal syndrome; E87.20 Acidosis, unspecified; N17.9 Acute kidney failure, unspecified; I13.0 Hypertensive heart and chronic kidney disease with heart failure and stage 1 through stage 4 chronic kidney disease, or unspecified chronic kidney disease; Z68.43 Body mass index [BMI] 50.0-59.9, adult; K70.31 Alcoholic cirrhosis of liver with ascites; N18.30 Chronic kidney disease, stage 3 unspecified; D53.9 Nutritional anemia, unspecified; E11.22 Type 2 diabetes mellitus with diabetic chronic kidney disease; E11.65 Type 2 diabetes mellitus with hyperglycemia; E66.01 Morbid (severe) obesity due to excess calories; E87.6 Hypokalemia; I50.9 Heart failure, unspecified; D69.59 Other secondary thrombocytopenia; E88.09 Other disorders of plasma-protein metabolism, not elsewhere classified; F03.90 Unspecified dementia, unspecified severity, without behavioral disturbance, psychotic disturbance, mood disturbance, and anxiety; K70.40 Alcoholic hepatic failure without coma; Z79.899 Other long term (current) drug therapy
CPT/HCPCS: 36415; 76700; 76705; 80048; 80053; 82105; 82140; 82570; 82962; 83605; 83735; 83880; 84100; 84300; 85007; 85025; 85027; 85610; 87040; 87081; 96365; 96375; 97110; 97116; G0378; J1815; J2470; J2543; J3430